=== PATIENT | female | born 1960 | race Caucasian/White ===

== ENCOUNTER 2017-09-21 15:02 | Emergency (ER) | payer OTHER ==
[2017-09-21 15:44] LABS: Absolute Lymphocytes (CBC) 3.4 K/uL (0.7-4.9); Absolute Monocytes 0.5 K/uL (0.1-1.3); Absolute Neutrophil 5.9 K/uL (1.8-8.0); Eosinophils % 2.5 % (0-4.4); Hematocrit 30.5 % (36.0-45.0); Lymphocytes % 33.4 % (15.3-44.8); MCH 21.3 pg (27.0-35.0); MCV 67.8 fL (80-100); MPV 7.8 fL (7.6-11.3); Monocytes % 5.2 % (3.3-12.3); RBC Red Blood Cell Count 4.49 M/uL (3.86-4.86)
[2017-09-21 15:56] LABS: Bicarbonate 26 mEq/L (21-31); Potassium 3.7 mEq/L (3.6-5.0); Protime INR 1.03; Sodium Level 132 mEq/L (135-145)
--- NOTE | 2017-09-21 16:00 | RAD REPORT ---
EXAM DESCRIPTION: CT - CTHCSPWOC - 09/21/2017 3:40 pm CLINICAL HISTORY: Trauma, head and neck injury. COMPARISON: None. TECHNIQUE: Axial 5 mm thick images of the head were obtained. Axial 2 mm thick images of the cervical spine were obtained with sagittal and coronal reconstruction images generated and reviewed. All CT scans are performed using dose optimization technique as appropriate and may include automated exposure control or mA/KV adjustment according to patient size. FINDINGS: CT HEAD WITHOUT CONTRAST: No acute hemorrhage, hydrocephalus or extra-axial collection is identified.No areas of brain edema or midline shift. The paranasal sinuses and mastoids are clear.The calvarium is intact. CT CERVICAL SPINE WITHOUT CONTRAST: No fracture or subluxation.Partial bony fusion noted involving at C5-7.No prevertebral soft tissues s welling is identified. IMPRESSION: No acute intracranial or cervical spine findings.
[2017-09-21 16:02] LABS: ALT/SGPT 9 IU/L (10-60); AST/SGOT 15 IU/L (10-42); Alkaline Phosphatase 120 IU/L (42-121); BUN Blood Urea Nitrogen 10 mg/dL (6-20); Bilirubin Direct < 0.1 mg/dL (0-0.2); Bilirubin Total 0.4 mg/dL (0.3-1.2); Creatine Phosphokinase 22 IU/L (22-269); Magnesium 1.7 mg/dL (1.8-2.5); Protein, Total 8.5 g/dL (6.0-8.3)
[2017-09-21 16:03] LABS: Glucose Level 447 mg/dL (65-120)
[2017-09-21 16:04] LABS: Alcohol Serum/Plasma < 10 mg/dl
[2017-09-21 16:05] LABS: CKMB Creatine Kinase MB 0.4 ng/ml (0.3-4.0)
--- NOTE | 2017-09-21 16:16 | RAD REPORT ---
EXAM DESCRIPTION: RAD - Pelvis - 09/21/2017 4:05 pm CLINICAL HISTORY: Fall, trauma, pelvic pain. COMPARISON: None. FINDINGS: No fracture, dislocation or radiographic evidence of AVN. IMPRESSION: Negative study.
--- NOTE | 2017-09-21 16:16 | RAD REPORT ---
EXAM DESCRIPTION: RAD - Chest Single View - 09/21/2017 4:05 pm CLINICAL HISTORY: Fall, trauma, chest pain COMPARISON: None. FINDINGS: Portable technique limits examination quality. The lungs are grossly clear. The heart is normal in size. No displaced fractures. IMPRESSION: No acute intrathoracic process suspected.
--- NOTE | 2017-09-21 16:17 | RAD REPORT ---
EXAM DESCRIPTION: RAD - Knee Left 3 View - 09/21/2017 4:05 pm CLINICAL HISTORY: Fall, trauma, knee pain COMPARISON: None. FINDINGS: Arthritic changes are present involving all three joint compartments. Small suprapatellar joint effusion noted. No acute fracture identified.
--- NOTE | 2017-09-21 16:18 | RAD REPORT ---
EXAM DESCRIPTION: RAD - Ankle Left 3 View - 09/21/2017 4:05 pm CLINICAL HISTORY: Fall, left ankle pain COMPARISON: None. FINDINGS: A large calcaneal spur along the plantar aspect is noted. No acute fracture or dislocation is seen.
[2017-09-21] MEDS ORDERED: INSULIN -REGULAR HUMAN 50 UNIT/0.5 ML ML ONE (16:44)
[2017-09-21] MEDS ORDERED: NA CHLORIDE 0.9% 500 ML ONE (16:44)
[2017-09-21] MEDS ORDERED: HYDROCODONE/APAP 7.5/325 MG TAB ONE (17:15)
--- NOTE | 2017-09-21 17:22 | EDPHYS ---
Physician Documentation [facility] Name: Kirsten Barros Age: 56 yrs Sex: Female : 1960 Arrival Date: 09/21/2017 Time: 15:03 Bed 2 Private MD: ED Physician Juanpablo Rojas HPI: 09/21 15:30 This 56 yrs old Female presents to ER via EMS with complaints of Fall Injury, cp Nausea. 15:30 Details of fall: The patient fell from seated position, bar stool, and struck wood cp laly. 15:30 Onset: The symptoms/episode began/occurred just prior to arrival. Associated injuries: cp The patient sustained left knee, painful injury, swelling. Patient reports she sitting on barstool and as she attempted to stand, somehow she fell off landing onto ground. Unsure of LOC. Patient admits to recently stopping prescribed medications. Historical: - Allergies: 15:07 No Known Allergies; sv - PMHx: 15:07 Diabetes - NIDDM; Psoriatic arthritis; sv - Immunization history:: Adult Immunizations up to date. - Social history:: Smoking status: Patient/guardian denies using tobacco, Patient/guardian denies using alcohol, street drugs. ROS: 15:35 Constitutional: Negative for body aches, chills, fever, poor PO intake. cp 15:35 Eyes: Negative for injury, pain, redness, and discharge. cp 15:35 ENT: Negative for drainage from ear(s), ear pain, sore throat, difficulty swallowing, cp difficulty handling secretions. 15:35 Neck: Positive for pain with movement, bony tenderness. 15:35 Cardiovascular: Negative for chest pain, palpitations. 15:35 Respiratory: Negative for cough, shortness of breath, wheezing. 15:35 Abdomen/GI: Negative for abdominal pain, nausea, vomiting, and diarrhea, constipation, black/tarry stool, rectal bleeding. 15:35 Back: Negative for radiated pain. cp 15:35 MS/extremity: Positive for pain, swelling, tenderness, of the left knee, Negative for decreased range of motion, deformity. 15:35 Skin: Negative for cellulitis, laceration(s). 15:35 Neuro: Negative for altered mental status, headache, seizure activity, weakness. 15:35 Psych: Positive for depression, Negative for suicide gesture, suicidal ideation. 15:35 All other systems are negative. Exam: 15:35 ECG was reviewed by the Attending Physician. cp 15:38 Constitutional: The patient appears in no acute distress, alert, awake, cp non-diaphoretic, non-toxic, well developed, well nourished. 15:38 Head/Face: Normocephalic, atraumatic. cp 15:38 Eyes: Periorbital structures: appear normal, Pupils: equal, round, and reactive to cp light and accomodation, Extraocular movements: intact throughout, Conjunctiva: normal, no exudate, no injection, Sclera: no appreciated abnormality, Lids and lashes: appear normal, bilaterally. 15:38 ENT: External ear(s): are unremarkable, Ear canal(s): are normal, clear, TM's: dullness, bilaterally, Nose: is normal, Mouth: Lips: moist, Oral mucosa: moist, Posterior pharynx: Airway: no evidence of obstruction, patent, Tonsils: are normal in appearance, Uvula: midline, swelling, is not appreciated, erythema, is not appreciated, exudate, is not appreciated, Voice: is normal. 15:38 Neck: C-spine: C-collar placed in ED, vertebral tenderness, that is mild, crepitus, is not appreciated, ROM/movement: pain, that is mild, limited range of motion, is not appreciated, Meningeal signs: are not present, nuchal rigidity, is not appreciated. 15:38 Chest/axilla: Inspection: normal, Palpation: is normal, no crepitus, no tenderness. cp 15:38 Cardiovascular: Rate: normal, Rhythm: regular, Pulses: Pulses are 2+ in right radial artery and left radial artery. Heart sounds: murmur, not appreciated, rub, not appreciated, gallop, not appreciated, Edema: is not appreciated, JVD: is not appreciated. 15:38 Respiratory: the patient does not display signs of respiratory distress, Respirations: normal, no use of accessory muscles, no retractions, no splinting, no tachypnea, labored breathing, is not present, Breath sounds: are clear throughout, no decreased breath sounds, no stridor, no wheezing. 15:38 Abdomen/GI: Inspection: abdomen appears normal, Bowel sounds: active, all quadrants, Palpation: abdomen is soft and non-tender, in all quadrants, rebound tenderness, is not appreciated, voluntary guarding, is not appreciated, involuntary guarding, is not appreciated, Rectal exam: Stool: brown, guaiac negative. 15:38 Back: ROM is normal, CVA tenderness, is absent, vertebral tenderness, is not appreciated. 15:38 Musculoskeletal/extremity: Joints: All joints are normal except the left knee displays painful range of motion, swelling, tenderness. 15:38 Skin: cellulitis, is not appreciated. 15:38 Neuro: Orientation: to person, place \T\ time. Mentation: lucid, able to follow commands, Cerebellar function: Romberg testing is negative, Motor: moves all fours, strength is normal, Sensation: no obvious gross deficits. Vital Signs: 15:06 Pulse 90; Resp 18; Temp 98.2(O); Pulse Ox 99% on R/A; Height 5 ft. 2 in. (157.48 cm); sv Pain 0/10; 16:36 BP 157 / 79; Pulse 107; Resp 18; Pulse Ox 98% ; sv 16:39 BP 147 / 70 Supine; Pulse 98; jb1 16:39 BP 157 / 79 Sitting; Pulse 106; jb1 16:39 BP 141 / 82 Standing; Pulse 114; jb1 18:04 BP 140 / 77; Pulse 89; Resp 16; Pulse Ox 99% ; sv MDM: 15:10 Patient medically screened. cp 15:30 Differential diagnosis: closed head injury, contusion, fracture, laceration, multiple cp trauma, DKA. 17:15 Data reviewed: vital signs, nurses notes, lab test result(s), EKG, radiologic studies, cp CT scan, plain films. 17:20 Test interpretation: by ED physician or midlevel provider: plain radiologic studies. cp 17:20 Counseling: I had a detailed discussion with the patient and/or guardian regarding: the cp historical points, exam findings, and any diagnostic results supporting the discharge/admit diagnosis, lab results, radiology results, the need for outpatient follow up, a family practitioner, to return to the emergency department if symptoms worsen or persist or if there are any questions or concerns that arise at home. Response to treatment: the patient's symptoms have mildly improved after treatment, and as a result, I will discharge patient. 09/21 15:25 Order name: Basic Metabolic Panel; Complete Time: 16:13 cp 09/21 16:14 Interpretation: Normal except: NA 132; CL 97; GLUC 447; GFR 76. cp 09/21 15:25 Order name: BNP; Complete Time: 16:13 cp 09/21 15:25 Order name: CBC with Diff; Complete Time: 16: cp 09/21 16:14 Interpretation: Normal except: HGB 9.6; HCT 30.5; MCV 67.8; MCH 21.3; MCHC 31.3; PLT cp 580; RDW 17.8. 09/21 15:25 Order name: Ckmb; Complete Time: 16:13 cp 09/21 15:25 Order name: CPK; Complete Time: 16: cp 09/21 15:25 Order name: LFT's; Complete Time: 16: cp 09/21 16:27 Interpretation: Normal except: SGPT 9; TP 8.5; ALB 3.0; GLOB 5.5; A/G 0.5. cp 09/21 15:25 Order name: Magnesium; Complete Time: 16:13 cp 09/21 15:25 Order name: PT-INR; Complete Time: 16:27 cp 09/21 15:25 Order name: Ptt, Activated; Complete Time: 16:27 cp 09/21 15:25 Order name: Troponin (emerg Dept Use Only); Complete Time: 16:13 cp 09/21 15:25 Order name: ETOH Level; Complete Time: 16: cp 09/21 15:25 Order name: Ketone, Serum; Complete Time: 16:13 cp 09/21 15:38 Order name: Glucose, Ancillary Testing; Complete Time: 16:13 EDMS 09/21 17:37 Order name: Urine Dipstick--Ancillary (enter results) ag 09/21 15:25 Order name: CT Head C Spine; Complete Time: 16:13 cp 09/21 15:25 Order name: XRAY Chest (1 view); Complete Time: 16:27 cp 09/21 15:25 Order name: EKG; Complete Time: 15:26 cp 09/21 15:25 Order name: Cardiac monitoring; Complete Time: 15:37 cp 09/21 15:25 Order name: EKG - Nurse/Tech; Complete Time: 15:37 cp 09/21 15:25 Order name: IV Saline Lock; Complete Time: 15:37 cp 09/21 15:25 Order name: Labs collected and sent; Complete Time: 15:37 cp 09/21 15:25 Order name: O2 Per Protocol; Complete Time: 15:37 cp 09/21 15:25 Order name: O2 Sat Monitoring; Complete Time: 15:37 cp 09/21 15:25 Order name: XRAY Pelvis; Complete Time: 16:27 cp 09/21 15:25 Order name: XRAY Knee LEFT 3 view; Complete Time: 16:27 cp 09/21 15:25 Order name: XRAY Ankle LEFT 3 view; Complete Time: 16:27 cp 09/21 16:33 Order name: Orthostatics; Complete Time: 16:39 cp 09/21 16:59 Order name: Knee Immobilizer: left knee cp 09/21 16:59 Order name: Crutches cp EC:35 Rate is 104 beats/min. Rhythm is regular. PA interval is normal at 154 msec. QRS cp interval is normal. QT interval is normal. No ST changes noted. Interpreted by me. Reviewed by me. Administered Medications: 16:48 Drug: Insulin Regular Human 10 units {Co-Signature: sg (Devon Resendez RN).} Route: IVP; sv Site: left antecubital; 17:11 Follow up: Response: No adverse reaction; Blood sugar is lowered sv 16:48 Drug: NS 0.9% 500 ml Route: IV; Rate: bolus; Site: left antecubital; sv 17:15 Follow up: Response: No adverse reaction; IV Status: Completed infusion; IV Intake: sv 500ml 17:15 Drug: Hydrocodone-Acetaminophen (7.5 mg-325 mg) 1 tabs Route: PO; sv 17:43 Follow up: Response: No adverse reaction sv 18:02 Drug: Magnesium Oxide 800 mg Route: PO; sv 18:02 Follow up: Response: No adverse reaction sv Point of Care Testing: Blood Glucose: 15:10 Blood Glucose: 412 mg/dL; sv 17:11 Blood Glucose: 357 mg/dL; sv Guaiac: 16:56 Stool Guaiac: Negative; Stool Hemoccult Control: Pass; sv 16:56 done by Ray MCCURDY sv Ranges: Critical Glucose Levels:Adult <50 mg/dl or >400 mg/dl <40 mg/dl or >180 mg/dl Disposition: 05/13/18 17:21 Discharged to Home. Impression: Fall from chair - Barstool, Pain in left knee - from fall, Diabetes mellitus due to underlying condition with hyperglycemia. - Condition is Stable. - Discharge Instructions: Elastic Bandage and RICE, Type 2 Diabetes Mellitus, Adult, Knee Immobilizer, Knee Pain, Diabetes Mellitus and Food. - Prescriptions for Ibuprofen 800 mg Oral Tablet - take 1 tablet by ORAL route every 8 hours As needed take with food; 30 tablet. Tramadol 50 mg Oral Tablet - take 1 tablet by ORAL route every 8 hours as needed; 12 tablet. - Medication Reconciliation Form, Thank You Letter, Antibiotic Education, Prescription Opioid Use form. - Follow up: Private Physician; When: 1 - 2 days; Reason: Recheck today's complaints. Follow up: Fitz Garner MD; When: 2 - 3 days; Reason: left knee pain. - Problem is new. - Symptoms have improved. Addendum: 09/30/2017 05:55 Co-signature as Attending Physician, Juanpablo Rojas MD I agree with the assessment and w a plan of care. Signatures: Dispatcher [employer] Brook Mehta RN RN Ray Vazquez PA PA Juanpablo Borges MD MD wa Steven Gay RN sg Corrections: (The following items were deleted from the chart) 09/21 17:23 09/20 15:35 Constitutional: Negative for body aches, chills, fever, poor PO intake, cp cp 09/21 17:23 09/20 15:35 Eyes: Negative for injury, pain, redness, and discharge, cp cp 09/21 18:45 17:21 09/21/2017 17:21 Discharged to Home. Impression: Fall from chair - Barstool; Pain sv in left knee - from fall; Diabetes mellitus due to underlying condition with hyperglycemia. Condition is Stable. Forms are Medication Reconciliation Form, Thank You Letter, Antibiotic Education, Prescription Opioid Use. Follow up: Private Physician; When: 1 - 2 days; Reason: Recheck today's complaints. Follow up: Ftiz Garner; When: 2 - 3 days; Reason: left knee pain. Problem is new. Symptoms have improved. cp
--- NOTE | 2017-09-21 17:22 | ER ---
Nurse's Notes [facility] Name: Kirsten Barros Age: 56 yrs Sex: Female : 1960 Arrival Date: 09/21/2017 Time: 15:03 Bed 2 Private MD: Diagnosis: Fall from chair-Barstool;Pain in left knee-from fall;Diabetes mellitus due to underlying condition with hyperglycemia Presentation: 09/21 14:57 Presenting complaint: EMS states: slipped off of a barstool, pt stated that the sv barstool went the other way. Pt found laying on the floor vomiting by EMS. BS-500, ST-132, NS 100 mls, Zofran 4 mg IVP, A\T\O x4 Temp-97.2. Care prior to arrival: IV initiated. 20 GA, in the right forearm, Glucose check: 500. Mechanism of Injury: Fall out of chair. 14:57 Acuity: IAN 2 sv 14:57 Method Of Arrival: EMS: [facility] sv 14:58 Transition of care: patient was not received from another setting of care. Onset of sv symptoms was September 21, 2017. Initial Sepsis Screen: Does the patient meet any 2 criteria? No. Patient's initial sepsis screen is negative. Does the patient have a suspected source of infection? No. Patient's initial sepsis screen is negative. Triage Assessment: 15:05 General: Appears uncomfortable, Behavior is cooperative, appropriate for age, Denies sv LOC. Pain: Complains of pain in left hip, left knee and back of neck Pain currently is 3 out of 10 on a pain scale. EENT: No signs and/or symptoms were reported regarding the EENT system. Neuro: Level of Consciousness is awake, alert, obeys commands, Oriented to person, place, time, situation, Moves all extremities. Cardiovascular: Patient's skin is warm and dry. Respiratory: Respiratory effort is even, unlabored, Respiratory pattern is regular, symmetrical. GI: Reports nausea. Derm: Skin is normal. Musculoskeletal: No signs and/or symptoms reported regarding the musculoskeletal system. Historical: - Allergies: 15:07 No Known Allergies; sv - PMHx: 15:07 Diabetes - NIDDM; Psoriatic arthritis; sv - Immunization history:: Adult Immunizations up to date. - Social history:: Smoking status: Patient/guardian denies using tobacco, Patient/guardian denies using alcohol, street drugs. Screenin:10 Abuse screen: Denies threats or abuse. Denies injuries from another. Nutritional sv screening: No deficits noted. Tuberculosis screening: No symptoms or risk factors identified. Fall Risk No fall in past 12 months (0 pts). No secondary diagnosis (0 pts). IV access (20 points). Ambulatory Aid- None/Bed Rest/Nurse Assist (0 pts). Gait- Normal/Bed Rest/Wheelchair (0 pts) Mental Status- Oriented to own ability (0 pts). Total Swanson Fall Scale indicates No Risk (0-24 pts). Assessment: 16:37 Reassessment: Patient appears in no apparent distress at this time. No changes from sv previously documented assessment. Patient and/or family updated on plan of care and expected duration. Pain level reassessed. Patient is alert, oriented x 3, equal unlabored respirations, skin warm/dry/pink. 17:20 Reassessment: Pt informed that the PA ordered a knee immoblizer and crutches. Pt stated sv that she wasn't going to be able to use either one since she has difficulty walking anyways. Pt stated that she will probably do better with a wrap. Farhan wrap placed on pt's left knee. Pt ambulatory to the bathroom with my standby assistance. 18:02 Reassessment: Patient appears in no apparent distress at this time. Patient and/or sv family updated on plan of care and expected duration. Pain level reassessed. Patient is alert, oriented x 3, equal unlabored respirations, skin warm/dry/pink. Pt calling for a ride home. Vital Signs: 15:06 Pulse 90; Resp 18; Temp 98.2(O); Pulse Ox 99% on R/A; Height 5 ft. 2 in. (157.48 cm); sv Pain 0/10; 16:36 BP 157 / 79; Pulse 107; Resp 18; Pulse Ox 98% ; sv 16:39 BP 147 / 70 Supine; Pulse 98; jb1 16:39 BP 157 / 79 Sitting; Pulse 106; jb1 16:39 BP 141 / 82 Standing; Pulse 114; jb1 18:04 BP 140 / 77; Pulse 89; Resp 16; Pulse Ox 99% ; sv ED Course: 15:03 Patient arrived in ED. sv 15:04 Brook Johnson, VEGA is Primary Nurse. sv 15:06 Triage completed. sv 15:08 Maintain EMS IV. Dressing intact. Site clean \T\ dry. Gauge \T\ site: 20G R FA. sv 15:10 Ray Lofton PA is PHCP. cp 15:10 Juanpablo Rojas MD is Attending Physician. cp 15:10 Patient has correct armband on for positive identification. Placed in gown. Bed in low sv position. Call light in reach. Side rails up X2. compliance monitor on. Pulse ox on. NIBP on. Door closed. Warm blanket given. Head of bed elevated. 15:10 Arm band placed on right wrist. sv 15:20 Rigid cervical collar applied and checked by physician. sv 15:25 Missed attempt(s): 20 gauge in right forearm. Bleeding controlled, band aid applied, sv catheter tip intact. 15:30 Initial lab(s) drawn, by me, sent to lab. Inserted saline lock: 20 gauge in right sv antecubital area, using aseptic technique. Blood collected. Flushed right antecubital with 5 ml normal saline. 15:36 EKG done, by ED staff, reviewed by Ray MCCURDY. jb1 15:40 CT completed. Patient moved to CT via stretcher. Patient moved back from CT. cw1 15:40 CT Head C Spine In Process Unspecified. EDMS 16:04 Notified Nurse Practitioner and/or Physician Residential Glazier of a critical lab result(s), Glu iw 447. 16:05 XRAY Chest (1 view) In Process Unspecified. EDMS 16:05 XRAY Pelvis In Process Unspecified. EDMS 16:05 XRAY Knee LEFT 3 view In Process Unspecified. EDMS 16:05 XRAY Ankle LEFT 3 view In Process Unspecified. EDMS 17:11 IV is patent, is intact, with fluids infusing freely. sv 17:19 Fitz Garner MD is Referral Physician. cp 17:20 Farhan wrap to left knee. sv 18:45 No provider procedures requiring assistance completed. IV discontinued, intact, sv bleeding controlled, No redness/swelling at site. Pressure dressing applied. Administered Medications: 16:48 Drug: Insulin Regular Human 10 units {Co-Signature: sg (Devon Resendez RN).} Route: IVP; sv Site: left antecubital; 17:11 Follow up: Response: No adverse reaction; Blood sugar is lowered sv 16:48 Drug: NS 0.9% 500 ml Route: IV; Rate: bolus; Site: left antecubital; sv 17:15 Follow up: Response: No adverse reaction; IV Status: Completed infusion; IV Intake: sv 500ml 17:15 Drug: Hydrocodone-Acetaminophen (7.5 mg-325 mg) 1 tabs Route: PO; sv 17:43 Follow up: Response: No adverse reaction sv 18:02 Drug: Magnesium Oxide 800 mg Route: PO; sv 18:02 Follow up: Response: No adverse reaction sv Point of Care Testing: Blood Glucose: 15:10 Blood Glucose: 412 mg/dL; sv 17:11 Blood Glucose: 357 mg/dL; sv Guaiac: 16:56 Stool Guaiac: Negative; Stool Hemoccult Control: Pass; sv 16:56 done by Ray MCCURDY sv Ranges: Intake: 17:15 IV: 500ml; Total: 500ml. sv Outcome: 17:21 Discharge ordered by MD. cp 18:45 Patient left the ED. sv 18:45 Discharged to home via wheelchair, with friend. sv 18:45 Condition: stable 18:45 Discharge instructions given to patient, Instructed on discharge instructions, follow up and referral plans. medication usage, Demonstrated understanding of instructions, follow-up care, medications, Prescriptions given X 2. Signatures: Dispatcher [employer] Felipe Laws jb1 Brook Johnson RN RN sv Williams, Irene, RN RN iw Woodley, Crystal cw1 Ray Lofton PA PA cp Steven Gay RN sg
[2017-09-21 17:44] LABS: Urine Blood NEGATIVE (NEG); Urine Glucose 2+ (NEG); Urine Protein NEGATIVE (NEG); Urine Specific Gravity <1.005 (1.005-1.030)
[2017-09-21] MEDS ORDERED: MAGNESIUM OXIDE 400 MG TAB ONE (17:54)
--- NOTE | 2017-09-22 14:46 | EKG ---
Test Date: 2017-09-21 Test Time: 15:27:17 Hem Marker: KAILEE MEASUREMENT RESULTS: Intervals: Rate: 104 [place]: 154 QRSD: 68 QT: 336 QTc: 441 [place]: P: 61 AZ: 154 QRS: 36 T: 39 INTERPRETIVE STATEMENTS: Sinus tachycardia Otherwise normal ECG Compared to ECG 11/11/2007 09:39:39 Sinus rhythm no longer present Electronically Signed On 09-22-17 14:46:05 CDT by Nick Seo
== END 2017-09-21 18:45 | disposition home or self-care (01) ==
LOC: ER 15:02
DX: E11.65 Type 2 diabetes mellitus with hyperglycemia (principal); M25.562 Pain in left knee; W07.XXXA Fall from chair, initial encounter; Y93.89 Activity, other specified; Y92.9 Unspecified place or not applicable
CPT/HCPCS: 36415; 70450; 71045; 72125; 72170; 80048; 80076; 80320; 81003; 82009; 82550; 82553; 82962; 83735; 83880; 84484; 85025; 85610; 85730; 93005; 96374; 99285

== ENCOUNTER 2017-12-19 12:37 | Observation (INO) | payer OTHER, SELFPAY ==
[2017-12-19] MEDS ORDERED: NA CHLORIDE 0.9% 1,000 ML ONE (14:08)
[2017-12-19] MEDS ORDERED: ONDANSETRON 4 MG/2 ML VIAL ONE (14:08)
[2017-12-19 14:11] LABS: Absolute Lymphocytes (CBC) 1.3 K/uL (0.7-4.9); Absolute Monocytes 0.5 K/uL (0.1-1.3); Absolute Neutrophil 5.5 K/uL (1.8-8.0); Basophils % 0.7 % (0-1.3); Hematocrit 26.4 % (36.0-45.0); Lymphocytes % 17.3 % (15.3-44.8); MCH 21.7 pg (27.0-35.0); MCV 67.9 fL (80-100); MPV 7.4 fL (7.6-11.3); Monocytes % 6.9 % (3.3-12.3); RBC Red Blood Cell Count 3.89 M/uL (3.86-4.86)
[2017-12-19 14:26] LABS: Albumin 2.3 g/dL (3.4-5.0); Bilirubin Direct 0.1 mg/dL (0-0.2); Bilirubin Total 0.3 mg/dL (0.2-1.0); Potassium 3.4 mmol/L (3.5-5.1); Protein, Total 8.3 g/dL (6.4-8.2)
[2017-12-19 14:47] LABS: Platelet Estimate INCR; Urine White Blood Cell Casts OK
[2017-12-19 14:48] LABS: Blood Morphology Comment NOTED (NOT SEEN); Hypochromasia 1+
[2017-12-19 15:29] LABS: Urine Blood TRACE (NEG); Urine Glucose 2+ (NEG); Urine Protein NEGATIVE (NEG); Urine Specific Gravity 1.015 (1.005-1.030); Urine pH 6.5 (5.0-7.0)
[2017-12-19 15:43] LABS: Barbiturates NEGATIVE (NEGATIVE); Benzodiazepines NEGATIVE (NEGATIVE); Cocaine NEGATIVE (NEGATIVE); METHAMPHETAM NEGATIVE (NEGATIVE); Methadone NEGATIVE (NEGATIVE); Opiates NEGATIVE (NEGATIVE); Phencyclidine NEGATIVE (NEGATIVE); THC Cannibis NEGATIVE (NEGATIVE)
--- NOTE | 2017-12-19 15:48 | ER ---
Nurse's Notes [facility] Name: Kirsten Barros Age: 57 yrs Sex: Female : 1960 Arrival Date: 12/19/2017 Time: 12:40 Bed 17 Private MD: Diagnosis: Symptomatic anemia Presentation: 12/19 12:41 Presenting complaint: EMS states: called out for dizziness after drinking one em chilango, also complaint of generalized weakness, denies pain BGL 414 per EMS, HR 110s, all other VSS. Transition of care: patient was not received from another setting of care. Onset of symptoms was December 19, 2017. Risk Assessment: Do you want to hurt yourself or someone else? Patient reports no desire to harm self or others. Initial Sepsis Screen: Does the patient meet any 2 criteria? HR > 90 bpm. Does the patient have a suspected source of infection? No. Patient's initial sepsis screen is negative. Care prior to arrival: Medication(s) given: Normal saline infusion, 200 mL. 12:41 Method Of Arrival: EMS: [facility] em 12:42 Acuity: IAN 3 la1 Triage Assessment: 12:45 General: Appears in no apparent distress. uncomfortable, Behavior is calm, cooperative. em Pain: Denies pain. Historical: - Allergies: 12:45 No Known Allergies; em - PMHx: 12:45 Diabetes - NIDDM; Psoriatic Arthritis; Anemia; em - PSHx: 12:45 None; em - Immunization history:: Adult Immunizations up to date. - Social history:: Smoking status: Patient/guardian denies using tobacco. - Ebola Screening: : Patient negative for fever greater than or equal to 101.5 degrees Fahrenheit, and additional compatible Ebola Virus Disease symptoms Patient denies exposure to infectious person Patient denies travel to an Ebola-affected area in the 21 days before illness onset No symptoms or risks identified at this time. Screenin:46 Abuse screen: Denies threats or abuse. Nutritional screening: No deficits noted. em Tuberculosis screening: No symptoms or risk factors identified. Fall Risk None identified. Assessment: 12:50 General: Appears in no apparent distress. uncomfortable, Behavior is calm, cooperative. em Pain: Denies pain. Neuro: Level of Consciousness is awake, alert, obeys commands, Oriented to person, place, time, situation, Reports dizziness, headache weakness. Cardiovascular: Capillary refill < 3 seconds Patient's skin is warm and dry. Respiratory: Airway is patent Respiratory effort is even, unlabored, Respiratory pattern is regular, symmetrical, Breath sounds are clear bilaterally. GI: Abdomen is flat. : No signs and/or symptoms were reported regarding the genitourinary system. EENT: No signs and/or symptoms were reported regarding the EENT system. Derm: Skin is intact, Skin is pink, warm \\T\\ dry. Musculoskeletal: Range of motion: intact in all extremities. 13:00 General: The previous assessment is accurate. Call light remains within reach. . ss 14:35 Reassessment: Patient appears in no apparent distress at this time. Patient and/or em family updated on plan of care and expected duration. Pain level reassessed. Patient is alert, oriented x 3, equal unlabored respirations, skin warm/dry/pink. c/o mild "hangover headache". 15:30 Reassessment: Patient appears in no apparent distress at this time. Patient and/or em family updated on plan of care and expected duration. Pain level reassessed. Patient is alert, oriented x 3, equal unlabored respirations, skin warm/dry/pink. 16:55 Reassessment: Patient appears in no apparent distress at this time. Patient and/or em family updated on plan of care and expected duration. Pain level reassessed. Patient is alert, oriented x 3, equal unlabored respirations, skin warm/dry/pink. Dr. Matos at [facility]. 17:24 Reassessment: Patient appears in no apparent distress at this time. Patient and/or em family updated on plan of care and expected duration. Pain level reassessed. Patient is alert, oriented x 3, equal unlabored respirations, skin warm/dry/pink. Patient states feeling better. Vital Signs: 12:45 BP 115 / 75; Pulse 111; Resp 16; Pulse Ox 97% on R/A; Weight 54.88 kg; Height 5 ft. 2 em in. (157.48 cm); Pain 0/10; 14:10 BP 120 / 64; Pulse 100; Resp 16; Temp 99.2(O); Pulse Ox 97% on R/A; Pain 0/10; em 15:00 BP 107 / 55; Pulse 107; Resp 18; Pulse Ox 99% on R/A; Pain 0/10; em 16:04 BP 123 / 67; Pulse 99; Resp 16; Pulse Ox 97% on R/A; Pain 0/10; em 17:27 BP 117 / 70; Pulse 102; Resp 18; Temp 98.6(O); Pulse Ox 97% on R/A; Pain 7/10; em 12:45 Body Mass Index 22.13 (54.88 kg, 157.48 cm) em ED Course: 12:40 Patient arrived in ED. em1 12:41 Jason Ornelas LVN is Primary Nurse. em 12:42 Triage completed. la1 12:45 Arm band placed on. em 12:46 Patient has correct armband on for positive identification. Bed in low position. Call em light in reach. Side rails up X2. 12:46 No provider procedures requiring assistance completed. em 12:46 Maintain EMS IV. Dressing intact. Good blood return noted. Site clean \\T\\ dry. Gauge \\T\\ em site: 20 LAC. 13:22 Fernando Mauricio MD is Attending Physician. ps1 14:00 Initial lab(s) drawn, by me, sent to lab. em 14:16 EKG done, by global position system technician. reviewed by Fernando Mauricio MD. sm3 15:45 Silvia Matos MD is Hospitalizing Provider. ps1 17:10 Repeat lab(s) drawn. by me, sent to lab. T\\T\\S collected, blood band applied to patient. em 17:41 Patient admitted, IV remains in place. em Administered Medications: 14:09 Drug: NS 0.9% 1000 ml Route: IV; Rate: 1 bolus; Site: left antecubital; em 15:00 Follow up: IV Status: Completed infusion; IV Intake: 1000ml em 14:10 Drug: Zofran 4 mg Route: IVP; Site: left antecubital; la1 14:37 Follow up: Response: No adverse reaction; Nausea is decreased em 17:12 Drug: Gabapentin 300 mg Route: PO; em 17:26 Follow up: Response: No adverse reaction; Pain is decreased em Intake: 15:00 IV: 1000ml; Total: 1000ml. em Outcome: 15:47 Decision to Hospitalize by Provider. ps1 17:41 Admitted to Med/surg accompanied by tech, via wheelchair, room 206, with chart, Report em called to VEGA Perez 17:41 Condition: good 17:41 Instructed on the need for admit, Demonstrated understanding of instructions. 17:42 Patient left the ED. em Signatures: Jason Ornelas LVN LVN em Rao Daley em1 Carolyn Dunne RN RN ss Pedro Dennis RN RN la1 Fernando Mauricio MD MD [facility] Consuelo Cardoza 3 Corrections: (The following items were deleted from the chart) 14:42 14:10 BP 120 / 64; Pulse 100bpm; Resp 16bpm; Pulse Ox 97% RA; Pain 0/10; em em
--- NOTE | 2017-12-19 15:48 | EDPHYS ---
Physician Documentation [facility] Name: Kirsten Barros Age: 57 yrs Sex: Female : 1960 Arrival Date: 12/19/2017 Time: 12:40 Bed 17 Private MD: ED Physician Fernando Mauricio HPI: 12/19 14:00 This 57 yrs old Female presents to ER via EMS with complaints of Dizziness, ps1 General Weakness. 14:00 Patient had a chilango at the [employer] restaurant and then felt lightheaded and weak. ps1 She states that she is not normally a drinker but it never hit her like this before. 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 No pain. Symptoms associated with nausea. . Historical: - Allergies: 12:45 No Known Allergies; em - PMHx: 12:45 Diabetes - NIDDM; Psoriatic Arthritis; Anemia; em - PSHx: 12:45 None; em - Immunization history:: Adult Immunizations up to date. - Social history:: Smoking status: Patient/guardian denies using tobacco. - Ebola Screening: : Patient negative for fever greater than or equal to 101.5 degrees Fahrenheit, and additional compatible Ebola Virus Disease symptoms Patient denies exposure to infectious person Patient denies travel to an Ebola-affected area in the 21 days before illness onset No symptoms or risks identified at this time. ROS: 14:00 Constitutional: Negative for fever, chills, and weight loss, Eyes: Negative for injury, ps1 pain, redness, and discharge, Cardiovascular: Negative for chest pain, palpitations, and edema, Respiratory: Negative for shortness of breath, cough, wheezing, and pleuritic chest pain, MS/Extremity: Negative for injury and deformity, Skin: Negative for injury, rash, and discoloration, Neuro: Negative for headache, weakness, numbness, tingling, and seizure. 14:00 Constitutional: Positive for fatigue. 14:00 Abdomen/GI: Positive for nausea. Exam: 14:00 Constitutional: This is a well developed, well nourished patient who is awake, alert, ps1 and in no acute distress. Head/Face: Normocephalic, atraumatic. Eyes: Pupils equal round and reactive to light, extra-ocular motions intact. Lids and lashes normal. Conjunctiva and sclera are non-icteric and not injected. Chest/axilla: Normal chest wall appearance and motion. Nontender with no deformity. No lesions are appreciated. Cardiovascular: Regular rate and rhythm. No gallops, murmurs, or rubs. Normal PMI, no JVD. No pulse deficits. Respiratory: Lungs have equal breath sounds bilaterally, clear to auscultation and percussion. No rales, rhonchi or wheezes noted. No increased work of breathing, no retractions or nasal flaring. Abdomen/GI: Soft, non-tender, with normal bowel sounds. No distension or tympany. No guarding or rebound. No evidence of tenderness throughout. MS/ Extremity: Pulses equal, no cyanosis. Neurovascular intact. Full, normal range of motion. Neuro: Awake and alert, GCS 15, oriented to person, place, time, and situation. Cranial nerves II-XII grossly intact. Sensory grossly intact. Vital Signs: 12:45 BP 115 / 75; Pulse 111; Resp 16; Pulse Ox 97% on R/A; Weight 54.88 kg; Height 5 ft. 2 em in. (157.48 cm); Pain 0/10; 14:10 BP 120 / 64; Pulse 100; Resp 16; Temp 99.2(O); Pulse Ox 97% on R/A; Pain 0/10; em 15:00 BP 107 / 55; Pulse 107; Resp 18; Pulse Ox 99% on R/A; Pain 0/10; em 16:04 BP 123 / 67; Pulse 99; Resp 16; Pulse Ox 97% on R/A; Pain 0/10; em 17:27 BP 117 / 70; Pulse 102; Resp 18; Temp 98.6(O); Pulse Ox 97% on R/A; Pain 7/10; em 12:45 Body Mass Index 22.13 (54.88 kg, 157.48 cm) em MDM: 13:59 Patient medically screened. ps1 15:47 Data reviewed: vital signs, nurses notes, lab test result(s), CBC. Counseling: I had a ps1 detailed discussion with the patient and/or guardian regarding: the historical points, exam findings, and any diagnostic results supporting the discharge/admit diagnosis, the need for further work-up and treatment in the hospital. 12/19 13:50 Order name: Basic Metabolic Panel; Complete Time: 14:40 ps1 12/19 13:50 Order name: CBC with Diff; Complete Time: 15:02 ps1 12/19 13:50 Order name: ETOH Level; Complete Time: 14:40 ps1 12/19 13:50 Order name: Hepatic Function; Complete Time: 14:40 ps1 12/19 13:50 Order name: Urine Drug Screen; Complete Time: 15:53 ps1 12/19 14:13 Order name: CBC Smear Scan; Complete Time: 15:02 EDMS 12/19 15:17 Order name: Urine Dipstick--Ancillary (enter results); Complete Time: 15:33 ag 12/19 15:27 Order name: [place] ag 12/19 15:58 Order name: Type and Screen EDCT 12/19 15:58 Order name: Vitamin B12 Level EDCT 12/19 15:58 Order name: Ferritin EDCT 12/19 15:58 Order name: Folic Acid, (Folate) EDCT 12/19 15:58 Order name: Transferrin Sat/Iron Binding EDCT 12/19 13:50 Order name: EKG; Complete Time: 13:51 ps1 12/19 13:50 Order name: EKG - Nurse/Tech; Complete Time: 14:37 ps1 12/19 13:50 Order name: IV Saline Lock; Complete Time: 14:37 ps1 12/19 15:58 Order name: CONS Pharmacy Consult EDCT 12/19 15:58 Order name: Clear Liquid, Advance as Tolerated EDCT 12/19 15:58 Order name: Basic Metabolic Panel EDCT 12/19 15:58 Order name: Basic Metabolic Panel EDCT 12/19 15:58 Order name: CBC with Automated Diff EDMS 12/19 15:58 Order name: CBC with Automated Diff EDMS 12/19 15:58 Order name: Hematocrit EDMS 12/19 15:58 Order name: Hematocrit EDMS 12/19 15:58 Order name: Hemoglobin EDCT 12/19 15:58 Order name: Hemoglobin EDCT 12/19 13:50 Order name: Labs collected and sent; Complete Time: 14:37 ps1 12/19 13:50 Order name: Urine Dipstick-Ancillary (obtain specimen); Complete Time: 15:15 ps1 Administered Medications: 14:09 Drug: NS 0.9% 1000 ml Route: IV; Rate: 1 bolus; Site: left antecubital; em 15:00 Follow up: IV Status: Completed infusion; IV Intake: 1000ml em 14:10 Drug: Zofran 4 mg Route: IVP; Site: left antecubital; la1 14:37 Follow up: Response: No adverse reaction; Nausea is decreased em 17:12 Drug: Gabapentin 300 mg Route: PO; em 17:26 Follow up: Response: No adverse reaction; Pain is decreased em Disposition: 12/19/17 15:47 Hospitalization ordered by Silvia Matos for Observation. Preliminary diagnosis is Symptomatic anemia. - Bed requested for Telemetry/MedSurg (observation). - Status is Observation. em - Condition is Stable. - Problem is chronic. - Symptoms have worsened. UTI on Admission? No Signatures: Dispatcher [employer] EDCT Jason Ornelas, DIE HOLDER DIE HOLDER em Pedro Dennis RN RN la1 Dina Nguyen ag Fernando Mauricio MD MD ps1 Corrections: (The following items were deleted from the chart) 15:59 15:58 Iron ordered. EDCT EDCT 17:17 15:47 Hospitalization Ordered by Silvia Matos MD for Observation. Preliminary diagnosis ag is Symptomatic anemia. Bed requested for Telemetry/MedSurg (observation). Status is Observation. Condition is Stable. Problem is chronic. Symptoms have worsened. UTI on Admission? No. ps1 17:42 17:17 12/19/2017 15:47 Hospitalization Ordered by Silvia Matos MD for Observation. em Preliminary diagnosis is Symptomatic anemia. Bed requested for Telemetry/MedSurg (observation). Status is Observation. Condition is Stable. Problem is chronic. Symptoms have worsened. UTI on Admission? No. ag
[2017-12-19] MEDS ORDERED: ACETAMINOPHEN 500 MG TAB PO PRN (15:52)
[2017-12-19] MEDS ORDERED: ONDANSETRON 4 MG/2 ML VIAL IV PRN (15:52)
[2017-12-19] MEDS ORDERED: NA CHLORIDE 0.9% 250 ML IV SCH (16:00)
[2017-12-19] MEDS ORDERED: GABAPENTIN 300 MG CAP ONE (17:07)
[2017-12-19 17:31] LABS: Hematocrit 26.8 % (36.0-45.0)
[2017-12-19 18:07] LABS: Ferritin 63.3 ng/mL (8-388); Folic Acid, (Folate) 5.7 ng/mL (3.1-17.5)
[2017-12-19] MEDS: NA CHLORIDE 0.9% 1,000 ML IV SCH (18:29)
[2017-12-19] MEDS: PANTOPRAZOLE 40 MG INJ IVP SCH (23:01)
[2017-12-20] MEDS: NA CHLORIDE 0.9% 1,000 ML IV SCH (03:08)
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
[2017-12-20 07:17] LABS: Urine Appearance CLEAR; Urine Bilirubin NEGATIVE (NEG); Urine Blood NEGATIVE (NEG); Urine Color YELLOW; Urine Glucose TRACE (NEG); Urine Protein NEGATIVE (NEG)
[2017-12-20 07:24] LABS: Urine Microscopic Reflex ORDER UMIC
[2017-12-20 07:32] LABS: Urine Bacteria <20 /HPF (<20); Urine Culture Reflex Order REFLEXED; Urine RBC NONE SEEN /HPF (NONE SEEN); Urine Yeast FEW (NONE SEEN)
--- NOTE | 2017-12-20 07:51 | EKG ---
Test Date: 2017-12-19 Test Time: 14:00:53 Replanting Machine Crewman: AYSE MEASUREMENT RESULTS: Intervals: Rate: 102 [place]: 138 QRSD: 70 QT: 348 QTc: 453 [place]: P: 67 [place]: 138 QRS: 47 T: 26 INTERPRETIVE STATEMENTS: Sinus tachycardia Low voltage QRS Borderline ECG Compared to ECG 09/21/2017 15:27:17 Low QRS voltage now present Electronically Signed On 12-20-17 07:50:37 CDT by Nick Seo
[2017-12-20] MEDS ORDERED: FERROUS SULFATE 325 MG TAB PO SCH (09:00)
[2017-12-20] MEDS ORDERED: SERTRALINE HCL 100 MG TAB PO SCH (09:00)
[2017-12-20] MEDS ORDERED: SODIUM CHLORIDE 0.9% 10ML INJ IV SCH (09:00)
[2017-12-20] MEDS ORDERED: glipiZIDE 5 MG TAB PO SCH (09:00)
[2017-12-20] MEDS: PANTOPRAZOLE 40 MG INJ IVP SCH (09:08)
[2017-12-20 10:29] LABS: Absolute Monocytes 0.4 K/uL (0.1-1.3); Absolute Neutrophil 3.1 K/uL (1.8-8.0); Basophils % 0.5 % (0-1.3); Eosinophils % 3.7 % (0-4.4); Hematocrit 25.3 % (36.0-45.0); Lymphocytes % 35.3 % (15.3-44.8); MCH 21.6 pg (27.0-35.0); MCV 66.5 fL (80-100); MPV 7.3 fL (7.6-11.3); Monocytes % 6.6 % (3.3-12.3)
[2017-12-20 10:41] LABS: BUN Blood Urea Nitrogen 5 mg/dL (7-18); Bicarbonate 25 mmol/L (21-32); Glucose Level 293 mg/dL (74-106); Potassium 3.4 mmol/L (3.5-5.1); Sodium Level 139 mmol/L (136-145)
--- NOTE | 2017-12-21 02:41 | DS ---
Date of Discharge: 12/20/2017 Admitting Diagnoses: 1.Gastrointestinal bleed. 2.Acute symptomatic blood loss anemia. 3.Hypokalemia. 4.Diabetes mellitus type 2 with hyperglycemia. 5.Essential hypertension. 6.Major depressive disorder. 7.Psoriasis. Discharge Diagnoses: 1.Acute symptomatic blood loss anemia. No further bleeding. Hemoglobin remained stable. 2.Gastrointestinal bleed. No further blood per rectum. The patient to follow up with GI as an outp atient. 3.Hypokalemia, replaced. 4.Diabetes mellitus type 2 with hyperglycemia, non-insulin dependent. 5.Essential hypertension, stable. 6.Major depressive disorder, on SSRI. 7.Psoriasis. Hospital Course: The patient is a 57-year-old female who has been having 2-week history of bright re d blood per rectum, comes in with nausea, dizziness, and decreased strength and overall generalized w eakness. The patient has been on iron supplements. The patient was found to have a hemoglobin of 8. 4. She was slightly tachycardic and somewhat hypotensive. The patient was started on IV fluids. He r hemoglobin was trended out and remained stable. Spoke with Dr. Heredia who recommended outpatient follow up as there is no acute bleeding. The patient's potassium was replaced. Stool occult blood was negative. The patient was then cleared for discharge and sent home in a stable condition. Activity: As tolerated. Medications: As per medication reconciliation. Followup: Follow up with primary care physician in 2 to 3 days. Follow up with FERNANDO, Dr. Heredia on Friday, and return to ER for worsening condition. Physical Examination: General: Awake, alert, oriented x3. No acute distress. CV: S1, S2. No murmurs. Respiratory: Moving air well bilaterally. No wheezing. Gastrointestinal: Abdomen is soft, nontender, nondistended. Positive bowel sounds. Extremities: No clubbing, cyanosis, or edema. Neurologic: Nonfocal. Skin: The patient has multiple psoriatic plaques. SA/MODL Voice ID: [id number] Report ID: [id number]
== END 2017-12-20 13:50 | disposition home or self-care (01) ==
LOC: ER 12:37 → ERHOLD 16:27 → 2ND 17:32 → 4TH 21:29
PROVIDERS: ADMIT Family Medicine; ATTEND Family Medicine
DX: D62 Acute posthemorrhagic anemia (principal); K62.5 Hemorrhage of anus and rectum; E87.6 Hypokalemia; E11.65 Type 2 diabetes mellitus with hyperglycemia; I10 Essential (primary) hypertension; F32.9 Major depressive disorder, single episode, unspecified; L40.9 Psoriasis, unspecified
CPT/HCPCS: 36415; 80048; 80076; 80307; 80320; 81003; 81015; 82272; 82607; 82728; 82746; 83540; 84466; 85014; 85018; 85025; 86850; 86900; 86901; 87086; 87088; 93005; 94760; 96361; 96374; 99285; C9113; G0378; J2405; J7030

== ENCOUNTER 2018-02-03 20:04 | Emergency (ER) | payer SELFPAY ==
[2018-02-03] MEDS ORDERED: HYDROCODONE/APAP 7.5/325 MG TAB ONE (21:01)
--- NOTE | 2018-02-03 22:56 | RAD REPORT ---
EXAM DESCRIPTION: RAD - Chest Single View - 02/03/2018 9:47 pm CLINICAL HISTORY: CHEST PAIN Chest pain. COMPARISON: Chest Single View dated 09/21/2017 FINDINGS: Portable technique limits examination quality. The lungs are grossly clear. The heart is normal in size. No displaced fractures. IMPRESSION: No acute intrathoracic process suspected.
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
== END 2018-02-03 23:25 | disposition home or self-care (01) ==
LOC: ER 20:04
DX: M62.830 Muscle spasm of back (principal); V29.49XA Motorcycle driver injured in collision with other motor vehicles in traffic accident, initial encounter
CPT/HCPCS: 71045; 72170; 99284

== ENCOUNTER 2018-02-08 08:38 | Observation (INO) | payer SELFPAY ==
[2018-02-08] MEDS ORDERED: NA CHLORIDE 0.9% 500 ML ONE (09:38)
[2018-02-08 09:52] LABS: Absolute Monocytes 0.5 K/uL (0.1-1.3); Basophils % 0.8 % (0-1.3); MCH 21.6 pg (27.0-35.0); MCV 66.5 fL (80-100); MPV 7.6 fL (7.6-11.3); Monocytes % 4.2 % (3.3-12.3); RBC Red Blood Cell Count 4.67 M/uL (3.86-4.86)
[2018-02-08 09:59] LABS: Protime INR 1.25
[2018-02-08 10:08] LABS: ALT/SGPT 9 U/L (12-78); AST/SGOT 12 U/L (15-37); Albumin 2.9 g/dL (3.4-5.0); Alkaline Phosphatase 140 U/L (45-117); BUN Blood Urea Nitrogen 8 mg/dL (7-18); Bicarbonate 27 mmol/L (21-32); Bilirubin Direct 0.2 mg/dL (0-0.2); Bilirubin Total 0.5 mg/dL (0.2-1.0); Glucose Level 252 mg/dL (74-106); NT PRO-BNP 68 pg/mL (<125); Potassium 3.3 mmol/L (3.5-5.1); Sodium Level 135 mmol/L (136-145); Troponin (Emerg Dept Use Only) < 0.02 ng/mL (0.0-0.045)
[2018-02-08 10:18] LABS: Blood Morphology Comment NOTED (NOT SEEN); Hypochromasia 1+; Platelet Estimate INCR; Urine White Blood Cell Casts OK
[2018-02-08 10:19] LABS: Poikilocytosis 1+; Stomatocytes 1+
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
--- NOTE | 2018-02-08 11:02 | ER ---
Nurse's Notes [facility] Name: Kirsten Barros Age: 57 yrs Sex: Female : 1960 Arrival Date: 02/08/2018 Time: 08:39 Bed 14 Private MD: Diagnosis: Chest pain, unspecified;Palpitations;Weakness;Anemia, unspecified Presentation: 02/08 08:48 Presenting complaint: Patient states: Progressive fatigue and exhaustion over the la1 course of the last week, pt also states intermittent bright red bleed in stool. Transition of care: patient was not received from another setting of care. Onset of symptoms was February 08, 2018. Risk Assessment: Do you want to hurt yourself or someone else? Patient reports no desire to harm self or others. Initial Sepsis Screen: Does the patient meet any 2 criteria?. 08:48 Method Of Arrival: Wheelchair la1 08:48 Acuity: IAN 3 la1 Historical: - Allergies: 08:48 No Known Allergies; la1 - PMHx: 08:48 Anemia; Diabetes - NIDDM; Psoriatic Arthritis; la1 - PSHx: 08:48 None; la1 - Immunization history:: Adult Immunizations up to date. - Social history:: Smoking status: Patient/guardian denies using tobacco. - Ebola Screening: : No symptoms or risks identified at this time. Screenin:32 Abuse screen: Denies threats or abuse. Denies injuries from another. Nutritional jl7 screening: No deficits noted. Tuberculosis screening: No symptoms or risk factors identified. Fall Risk IV access (20 points). Total Swanson Fall Scale indicates No Risk (0-24 pts). Assessment: 09:00 General: Appears in no apparent distress. uncomfortable, Behavior is cooperative, jl7 anxious. Pain: Denies pain. Neuro: Level of Consciousness is awake, alert, obeys commands, Oriented to person, place, time, situation. Cardiovascular: Heart tones present Patient's skin is warm and dry. Respiratory: Airway is patent Respiratory effort is even, unlabored, Respiratory pattern is regular, symmetrical, Breath sounds are clear bilaterally. GI: Abdomen is flat, non-distended, Bowel sounds present X 4 quads. Abd is soft and non tender X 4 quads. Reports constipation, bloody stool. : No signs and/or symptoms were reported regarding the genitourinary system. EENT: No signs and/or symptoms were reported regarding the EENT system. Derm: Skin is pink, warm \T\ dry. Musculoskeletal: No signs and/or symptoms reported regarding the musculoskeletal system. 10:00 Reassessment: No changes from previously documented assessment. Patient and/or family jl7 updated on plan of care and expected duration. Pain level reassessed. Patient is alert, oriented x 3, equal unlabored respirations, skin warm/dry/pink. 11:00 Reassessment: Patient appears in no apparent distress at this time. No changes from jl7 previously documented assessment. Patient and/or family updated on plan of care and expected duration. Pain level reassessed. Patient is alert, oriented x 3, equal unlabored respirations, skin warm/dry/pink. Vital Signs: 08:47 BP 105 / 64; Pulse 119; Resp 16; Pulse Ox 100% on R/A; Weight 56.7 kg; Height 5 ft. 2 la1 in. (157.48 cm); 09:41 BP 137 / 75; Pulse 92; Resp 10; Pulse Ox 100% on R/A; mh5 10:37 BP 124 / 62; Pulse 94; Resp 18; Pulse Ox 100% on R/A; mh5 11:32 BP 125 / 72; Pulse 89; Resp 16 S; Pulse Ox 100% on R/A; jl7 08:47 Body Mass Index 22.86 (56.70 kg, 157.48 cm) la1 ED Course: 08:39 Patient arrived in ED. mr 08:48 Arm band placed on left wrist. la1 08:49 Triage completed. la1 08:49 Wes Figueroa RN is Primary Nurse. jl7 08:50 Crystal Kiser NP is PHCP. rh1 08:50 Justice Barrientos MD is Attending Physician. rh1 09:00 Patient has correct armband on for positive identification. Placed in gown. Bed in low jl7 position. Call light in reach. Side rails up X 1. 09:00 environmental monitoring technician on. Pulse ox on. NIBP on. jl7 09:00 Served as a certified meeting professional during rectal exam. jl7 09:29 Initial lab(s) drawn, by al, sent to lab. Inserted saline lock: 22 gauge in right jl7 antecubital area, using aseptic technique. Blood collected. 10:03 XRAY Chest (1 view) In Process Unspecified. EDMS 11:01 Jesse Salinas MD is Hospitalizing Provider. rh1 12:07 Patient admitted, IV remains in place. intact, No redness/swelling at site. jl7 Administered Medications: 09:25 Drug: NS 0.9% 500 ml Route: IV; Rate: bolus; Site: right antecubital; jl7 10:15 Follow up: IV Status: Completed infusion jl7 Point of Care Testing: Blood Glucose: 08:47 Blood Glucose: 247 mg/dL; la1 Ranges: Outcome: 11:02 Decision to Hospitalize by Provider. rh1 12:07 Admitted to Tele accompanied by tech, via stretcher, room 209, with chart, Report jl7 called to VEGA Ronquillo 12:07 Condition: good 12:07 Instructed on the need for admit. 12:08 Patient left the ED. jl7 Signatures: Dispatcher [employer] EDWI Stacie Joe Lee, RN RN la1 Crystal Kiser, FRAMING MACHINE TENDER FRAMING MACHINE TENDER [facility] Jaja Daley Wes Zafar RN RN jl7
--- NOTE | 2018-02-08 11:25 | RAD REPORT ---
EXAM DESCRIPTION: RAD - Chest Single View - 02/08/2018 10:03 am CLINICAL HISTORY: CHEST PAIN Chest pain. COMPARISON: Chest Single View dated 02/03/2018; Chest Single View dated 09/21/2017 FINDINGS: Portable technique limits examination quality. The lungs are grossly clear. The heart is normal in size. No displaced fractures. IMPRESSION: No acute intrathoracic process suspected.
[2018-02-08] MEDS ORDERED: D50W 25 GM/50 ML SYRINGE IV PRN ×2 (11:28→23:46)
[2018-02-08] MEDS ORDERED: GLUCAGON 1 MG/VIAL IM PRN (11:28)
[2018-02-08] MEDS: INSULIN -REGULAR HUMAN 50 UNIT/0.5 ML ML SQ SCH ×3 (11:30→21:59)
--- NOTE | 2018-02-08 13:50 | P.HP ---
Certification for Inpatient Patient admitted to: Observation With expected LOS: <2 Midnights Patient will require the following post-hospital care: None Practitioner: I am a practitioner with admitting privileges, knowledge of patient current condition, hospital course, and medical plan of care. Services: Services provided to patient in accordance with Admission requirements found in Title 42 Section 412.3 of the Code of Federal Regulations Patient History Date of Service: 02/08/18 Reason for admission: chest pain History of Present Illness: 57 y/o female with anemia, depression, come jose m pain. She states she has chronic chest pain for yerars. Today, she was upset anf felt more chest [ain, left chest, 5-10, lasting half hour. No radiaiting. She has chroinc fatigue. Allergies No Known Allergies Allergy (Uncoded 12/19/17 18:03) Unknown Home Medications: Iron 1 tab PO TID 12/19/17 Metformin ER [Glucophage ER*] 1,000 mg PO BID 12/19/17 Sertraline [Zoloft*] 150 mg PO DAILY 12/19/17 glipiZIDE [Glipizide] 10 mg PO BID 12/19/17 Pantoprazole [Protonix Tab] 40 mg PO DAILY 02/08/18 - Past Medical/Surgical History Diabetic: Yes -: diabetes -: anemia -: psoriatic arthitis -: I & D for spider bite - Family History Sister -: Heart disease Notes: had open heart surgery - Social History Smoking Status: Never smoker Alcohol use: Yes CD- Drugs: No Caffeine use: No Place of Residence: Home Review of Systems 10-point ROS is otherwise unremarkable Physical Examination - Vital Signs Blood Pressure: 125/72 Pulse: 89 Respirations: 16 - Physical Exam General: Alert, In no apparent distress HEENT: Atraumatic, PERRLA, Mucous membr. moist/pink, EOMI, Sclerae nonicteric Neck: Supple, 2+ carotid pulse no bruit, No LAD, Without JVD or thyroid abnormality Respiratory: Clear to auscultation bilaterally, Normal air movement Cardiovascular: Regular rate/rhythm, Normal S1 S2 Gastrointestinal: Normal bowel sounds, No tenderness Musculoskeletal: No tenderness Integumentary: No rashes Neurological: Normal gait, Normal speech, Normal strength at 5/5 x4 extr, Normal tone, Normal affect Lymphatics: No axilla or inguinal lymphadenopathy - Studies Laboratory Data (last 24 hrs) 02/08/18 09:21: PT 14.8 H, INR 1.25 02/08/18 09:21: WBC 10.8, Hgb 10.1 L, Hct 31.0 L, Plt Count 687 H 02/08/18 09:21: Sodium 135 L, Potassium 3.3 L, BUN 8, Creatinine 0.80, Glucose 252 H, Magnesium 2.0, Total Bilirubin 0.5, AST 12 L, ALT 9 L, Alkaline Phosphatase 140 H Microbiology Data (last 24 hrs): 02/08/18 09:07 Stool Occult Blood - Final Assessment and Plan - Problems (Diagnosis) (1) Essential (primary) hypertension Onset Date: 12/22/17 Current Visit: Yes Status: Acute (2) Psoriasis Onset Date: 12/22/17 Current Visit: Yes Status: Chronic (3) Type 2 diabetes mellitus without complications Onset Date: 12/22/17 Current Visit: Yes Status: Chronic Qualifiers: Diabetes mellitus correction insulin use: without biscuit maker use Qualified Code(s): E11.9 - Type 2 diabetes mellitus without complications (4) Chest pain Current Visit: Yes Status: Acute Qualifiers: Chest pain type: precordial pain Qualified Code(s): R07.2 - Precordial pain (5) Anemia due to blood loss, acute Onset Date: 12/22/17 Current Visit: No Status: Acute - Plan --NS --Troponin x 3 --ECHO tomorrow --Cont Iron --CT chest abd pelvis --May DC home tomorrow; She needs to see Dr Heredia at clinic - Advance Directives Does patient have a Living Will: No Does patient have a Durable POA for Healthcare: No
[2018-02-08] MEDS ORDERED: PNEUMOCOCCAL VACCINE 0.5 ML IMVAC ONE (14:00)
[2018-02-08] MEDS: NA CHLORIDE 0.9% 1,000 ML IV SCH ×2 (14:49→21:58)
--- NOTE | 2018-02-08 15:07 | RAD REPORT ---
EXAM DESCRIPTION: CT - Chest Abdomen Pelvis W Cont - 02/08/2018 2:29 pm CLINICAL HISTORY: Chest and abdomen pain. ANEMIA COMPARISON: Chest Single View dated 02/08/2018; Chest Single View dated 09/21/2017 TECHNIQUE: Approximately 100 mL nonionic IV contrast was administered to the patient. All CT scans are performed using dose optimization technique as appropriate and may include automated exposure control or mA/KV adjustment according to patient size. FINDINGS: The lungs are clear.Small hiatal hernia.No pleural or pericardial effusion.Few mildly prom inent axillary lymph nodes bilaterally.No hilar or mediastinal adenopathy. The liver demonstrates diffuse fatty infiltration. The spleen, pancreas, adrenal glands and kidneys a re within normal limits. No bowel obstruction, free air, free fluid or abscess. Normal appendix. Mildly prominent bilateral i nguinal region lymph nodes seen. No worrisome osseous finding. IMPRESSION: No acute process is discerned. Mild nonspecific prominent lymph nodes in the axillary and inguinal regions. Small hiatal hernia. Fatty liver.
[2018-02-08] MEDS: glipiZIDE 5 MG TAB PO SCH (17:03)
[2018-02-08] MEDS: POTASSIUM 25 MEQ EFFERV TAB PO SCH (21:58)
[2018-02-08] MEDS ORDERED: D50W 25 GM/50 ML SYRINGE IV ONE (23:50)
[2018-02-09 06:07] LABS: Absolute Lymphocytes (CBC) 2.6 K/uL (0.7-4.9); Absolute Monocytes 0.5 K/uL (0.1-1.3); Basophils % 0.6 % (0-1.3); Eosinophils % 1.8 % (0-4.4); MCH 21.7 pg (27.0-35.0); MCV 66.6 fL (80-100); MPV 7.5 fL (7.6-11.3); Monocytes % 5.8 % (3.3-12.3); RBC Red Blood Cell Count 4.05 M/uL (3.86-4.86)
[2018-02-09 06:47] LABS: ALT/SGPT 7 U/L (12-78); AST/SGOT 7 U/L (15-37); Albumin 2.3 g/dL (3.4-5.0); Alkaline Phosphatase 119 U/L (45-117); BUN Blood Urea Nitrogen 6 mg/dL (7-18); Bicarbonate 28 mmol/L (21-32); Bilirubin Total 0.3 mg/dL (0.2-1.0); Glucose Level 200 mg/dL (74-106); Potassium 3.8 mmol/L (3.5-5.1); Protein, Total 8.1 g/dL (6.4-8.2); Sodium Level 136 mmol/L (136-145)
--- NOTE | 2018-02-09 06:48 | EKG ---
Test Date: 2018-02-08 Test Time: 09:08:03 Sand Conditioner: GASTON MEASUREMENT RESULTS: Intervals: Rate: 93 NH: 140 QRSD: 66 QT: 354 QTc: 440 [place]: P: 74 NH: 140 QRS: 40 T: 49 INTERPRETIVE STATEMENTS: Normal sinus rhythm Normal ECG Compared to ECG 12/19/2017 14:00:53 Sinus tachycardia no longer present Electronically Signed On 02-09-18 06:47:35 CDT by Nick Seo
[2018-02-09] MEDS: POTASSIUM 25 MEQ EFFERV TAB PO SCH (08:49)
[2018-02-09] MEDS: NA CHLORIDE 0.9% 1,000 ML IV SCH (08:49)
[2018-02-09] MEDS: glipiZIDE 5 MG TAB PO SCH (08:50)
[2018-02-09] MEDS: INSULIN -REGULAR HUMAN 50 UNIT/0.5 ML ML SQ SCH ×2 (08:51→11:30)
[2018-02-09] MEDS ORDERED: PANTOPRAZOLE 40MG TABLET PO SCH (09:00)
[2018-02-09] MEDS ORDERED: SERTRALINE HCL 50 MG TAB PO SCH (09:00)
[2018-02-09 13:10] LABS: Hematocrit 27.3 % (36.0-45.0)
--- NOTE | 2018-02-09 13:39 | P.DS ---
Admission Date: 02/08/18 Discharge Date: 02/09/18 Primary Care Provider: Dr. Ny; [facility] Disposition: ROUTINE DISCHARGE Discharge Condition: GOOD Reason for Admission: chest pain Consultations: none Procedures: CT Chest: Medical problem list: Chest pain resolved, atypical Diabetes mellitus type 2 [id number] Depression with anxiety GERD Anemia, iron deficiency Brief History of Present Illness: 57-year-old female presented urgency room with chest pain. Patient admitted overnite for evaluation. Hospital Course: Patient admitted for chest pain. This resolved. Cardiac enzymes unremarkable. No significant chest pain noted at discharge. This is likely atypical related to GERD. Echocardiogram obtained. This can be followed up as an outpatient. Patient has GERD. Patient will continue with Protonix 40 mg 1 pill once daily. Recommendation is for the patient follow up with GI as an outpatient within the next week. Patient may require GI evaluation-endoscopy and colonoscopy to further evaluate. Patient has anemia likely iron deficiency. Hemoglobin remained stable during her stay. At discharge she will continue with iron 325 mg 1 pill twice daily. Recommendation is for the patient follow up with GI as an outpatient for possible endoscopy and colonoscopy in the near future to further address. Information will be provided. Recommendation to recheck lab-CBC in 1 week to monitor progress. Patient with diabetes. At discharge she will continue with metformin 1000 mg 1 pill twice daily and glipizide 10 mg 1 pill twice daily. Recommendation is to maintain blood sugars less than 140 fasting and less than 2 after meals. Further adjustment can be done by her PCP. Patient has depression with anxiety. Patient will continue with Zoloft 150 mg 1 pill daily. Patient will follow up with [facility] to further monitor and address. Vital Signs/Physical Exam: Temp Pulse Resp BP Pulse Ox 99.2 F 92 H 18 118/59 L 99 02/09/18 08:00 02/09/18 08:00 02/09/18 08:00 02/09/18 08:00 02/09/18 08:00 General: Alert, In no apparent distress, Oriented x3, Cooperative HEENT: Atraumatic Neck: Supple Respiratory: Clear to auscultation bilaterally, Normal air movement Cardiovascular: Normal pulses, Regular rate/rhythm Gastrointestinal: Normal bowel sounds, Soft and benign, Non-distended, No tenderness, No masses, No rebound, No guarding Musculoskeletal: No erythema, No tenderness, No warmth Integumentary: No tenderness/swelling, No erythema, No warmth, No cyanosis Neurological: Normal speech, Normal strength at 5/5 x4 extr, Normal tone, Normal affect Laboratory Data at Discharge: WBC 9.3 K/uL (4.3-10.9) 02/09/18 05:31 Hgb 8.7 g/dL (12.0-15.0) L 02/09/18 12:48 Hct 27.3 % (36.0-45.0) L 02/09/18 12:48 Plt Count 553 K/uL (152-406) H 02/09/18 05:31 PT 14.8 SECONDS (9.5-12.5) H 02/08/18 09:21 INR 1.25 02/08/18 09:21 Sodium 136 mmol/L (136-145) 02/09/18 05:31 Potassium 3.8 mmol/L (3.5-5.1) 02/09/18 05:31 BUN 6 mg/dL (7-18) L 02/09/18 05:31 Creatinine 0.60 mg/dL (0.55-1.3) 02/09/18 05:31 Glucose 200 mg/dL (74-106) H 02/09/18 05:31 Magnesium 2.0 mg/dL (1.8-2.4) 02/08/18 09:21 Total Bilirubin 0.3 mg/dL (0.2-1.0) 02/09/18 05:31 AST 7 U/L (15-37) L 02/09/18 05:31 ALT 7 U/L (12-78) L 02/09/18 05:31 Alkaline Phosphatase 119 U/L (45-117) H 02/09/18 05:31 Troponin I < 0.02 ng/mL (0.0-0.045) 02/09/18 02:13 Home Medications: Metformin ER [Glucophage ER*] 1,000 mg PO BID 12/19/17 Sertraline [Zoloft*] 150 mg PO DAILY 12/19/17 glipiZIDE [Glipizide] 10 mg PO BID 12/19/17 Ferrous Sulfate [Iron] 325 mg PO BID #60 tablet 02/09/18 Pantoprazole [Protonix Tab*] 40 mg PO DAILY #30 tab 02/09/18 New Medications: Ferrous Sulfate [Iron] 325 mg PO BID #60 tablet Pantoprazole [Protonix Tab*] 40 mg PO DAILY #30 tab Patient Discharge Instructions: 1. Patient will need to follow up with PCP in 1 week to follow up this hospitalization. 2. Patient admitted for chest pain. This resolved. Cardiac enzymes unremarkable. No significant chest pain noted at discharge. This is likely atypical related to GERD. 3. Patient has GERD. Patient will continue with Protonix 40 mg 1 pill once daily. Recommendation is for the patient follow up with GI as an outpatient within the next week. Patient may require GI evaluation-endoscopy and colonoscopy to further evaluate. 4. Patient has anemia likely iron deficiency. Hemoglobin remained stable during her stay. At discharge she will continue with iron 325 mg 1 pill twice daily. Recommendation is for the patient follow up with GI as an outpatient for possible endoscopy and colonoscopy in the near future to further address. Information will be provided. Recommendation is to recheck lab-CBC in 1 week to monitor progress. 5. Patient with diabetes. At discharge she will continue with metformin 1000 mg 1 pill twice daily and glipizide 10 mg 1 pill twice daily. Recommendation is to maintain blood sugars less than 140 fasting and less than 2 after meals. Further adjustment can be done by her PCP. 6. Patient has depression with anxiety. Patient will continue with Zoloft 150 mg 1 pill daily. Patient will follow up with [facility] to further monitor and address. Diet: ADA Activity: Ad nory Time spent managing pt's care (in minutes): 55
--- NOTE | 2018-02-09 17:22 | ECHO ---
HEIGHT: 5 ft 2 in WEIGHT: 125 lb 0 oz DATE OF STUDY: 02/09/[address]: Jesse Salinas MD 2-DIMENSIONAL: YES M.MODE: YES DOPPLER: YES COLOR FLOW: YES TDS: PORTABLE: DEFINITY: BUBBLE STUDY: DIAGNOSIS: CHEST PAIN CARDIAC HISTORY: CATHERIZATION: NO SURGERY: NO PROSTHETIC VALVE: NO PACEMAKER: NO MEASUREMENTS (cm) DIASTOLIC (NORMALS) SYSTOLIC (NORMALS) IVSd 0.9 (0.6-1.2) LA Diam 3.5 (1.9-4.0) LVEF 70% LVIDd 4.0 (3.5-5.7) LVIDs 2.5 (2.0-3.5) %FS 39% LVPWd 1.0 (0.6-1.2) Ao Diam 2.4 (2.0-3.7) 2 DIMENSIONAL ASSESSMENT: RIGHT ATRIUM: NORMAL LEFT ATRIUM: NORMAL RIGHT VENTRICLE: NORMAL LEFT VENTRICLE: NORMAL TRICUSPID VALVE: NORMAL MITRAL VALVE: NORMAL PULMONIC VALVE: NORMAL AORTIC VALVE: NORMAL PERICARDIAL EFFUSION: NONE AORTIC ROOT: NORMAL LEFT VENTRICULAR WALL MOTION: NORMAL DOPPLER/COLOR FLOW: NORMAL COMMENTS: NORMAL TWO DIMENSIONAL ECHOCARDIOGRAM. TECHNOLOGIST: MARY VALADEZ
== END 2018-02-09 16:21 | disposition home or self-care (01) ==
LOC: ER 08:38 → ERHOLD 11:02 → 2ND 11:55
PROVIDERS: ADMIT Internal Medicine Hematology & Oncology; ATTEND Internal Medicine Hematology & Oncology
DX: R07.89 Other chest pain (principal); E11.9 Type 2 diabetes mellitus without complications; F41.8 Other specified anxiety disorders; K21.9 Gastro-esophageal reflux disease without esophagitis; D50.9 Iron deficiency anemia, unspecified; L40.9 Psoriasis, unspecified
CPT/HCPCS: 36415; 71045; 71260; 74177; 80048; 80053; 80076; 82272; 82607; 82728; 82962; 83540; 83735; 83880; 84466; 84484; 85014; 85018; 85025; 85610; 93005; 93306; 96360; 99285; G0378; J7030; Q9967

== ENCOUNTER 2020-02-28 23:40 | Inpatient (IN) | payer SELFPAY ==
[2020-02-29] MEDS ORDERED: NA CHLORIDE 0.9% 1,000 ML ONE (00:41)
[2020-02-29 01:03] LABS: Absolute Lymphocytes (CBC) 3.8 K/uL (0.7-4.9); Basophils % 1.3 % (0-1.3); Hematocrit 30.9 % (36.0-45.0); Lymphocytes % 32.7 % (15.3-44.8); MPV 7.2 fL (7.6-11.3); Protime INR 0.99
[2020-02-29 01:16] LABS: ALT/SGPT 11 U/L (12-78); AST/SGOT 13 U/L (15-37); Albumin 2.8 g/dL (3.4-5.0); Alkaline Phosphatase 185 U/L (45-117); BUN Blood Urea Nitrogen 9 mg/dL (7-18); Bicarbonate 27 mmol/L (21-32); Bilirubin Direct < 0.1 mg/dL (0-0.2); Bilirubin Total 0.4 mg/dL (0.2-1.0); Glucose Level 263 mg/dL (74-106); Lipase 198 U/L (73-393); Magnesium 1.9 mg/dL (1.8-2.4); NT PRO-BNP 79 pg/mL (<125); Potassium 3.2 mmol/L (3.5-5.1); Protein, Total 8.8 g/dL (6.4-8.2); Sodium Level 135 mmol/L (136-145); Troponin (Emerg Dept Use Only) < 0.02 ng/mL (0.0-0.045)
[2020-02-29 01:44] LABS: Blood Morphology Comment NOTED (NOT SEEN); Platelet Estimate ADEQ; Polychromasia 1+; White Blood Cell Scan OK (OK)
[2020-02-29] MEDS ORDERED: POTASSIUM CL SA 10 MEQ TAB PO ONE (02:13)
[2020-02-29 02:32] LABS: Barbiturates NEGATIVE (NEGATIVE); Benzodiazepines NEGATIVE (NEGATIVE); Cocaine NEGATIVE (NEGATIVE); METHAMPHETAM NEGATIVE (NEGATIVE); Methadone NEGATIVE (NEGATIVE); Opiates NEGATIVE (NEGATIVE); Phencyclidine NEGATIVE (NEGATIVE); THC Cannibis NEGATIVE (NEGATIVE)
[2020-02-29 03:22] LABS: Urine Blood TRACE (NEG); Urine Glucose TRACE (NEG); Urine Protein NEGATIVE (NEG)
[2020-02-29 04:07] LABS: Urine Culture Reflex Order NOT NEEDED
[2020-02-29 04:10] LABS: Urine Bacteria <20 /HPF (<20); Urine RBC NONE SEEN /HPF (NONE SEEN); Urine Yeast FEW (NONE SEEN)
--- NOTE | 2020-02-29 06:41 | ER ---
Nurse's Notes [facility] Name: Kirsten Barros Age: 59 yrs Sex: Female : 1960 Arrival Date: 02/28/2020 Time: 23:43 Bed 16 Private MD: Diagnosis: Chest pain. Generaliized weakness. Difficulty ambulating Presentation: 02/28 00:00 Chief complaint: Patient states: she is feeling weak, doesn't feel good, has been bb having chest pain intermittently for a week with no radiation worsens with stress, pt taking iron for anemia but has not been taking it regularly. Coronavirus screen: At this time, the client does not indicate any symptoms associated with coronavirus-19. Ebola Screen: No symptoms or risks identified at this time. Initial Sepsis Screen: Does the patient meet any 2 criteria? No. Patient's initial sepsis screen is negative. Does the patient have a suspected source of infection? No. Patient's initial sepsis screen is negative. Risk Assessment: Do you want to hurt yourself or someone else? Patient reports no desire to harm self or others. Onset of symptoms was February 24, 2020. 00:00 Method Of Arrival: Wheelchair bb 00:00 Acuity: IAN 3 bb Historical: - Allergies: 00:06 No Known Allergies; bb - Home Meds: 00:06 sertraline 50 mg oral tab 3 tabs once daily [Active]; metformin 1,000 mg Oral TG24 1 bb tab 2 times per day [Active]; gabapentin 100 mg oral cap 1 caps 3 times per day [Active]; Iron CR 65 mg Oral three times a day [Active]; pantoprazole 40 mg oral TbEC 1 tab once daily [Active]; glipizide 10 mg Oral tab 1 tab 2 times per day [Active]; lisinopril 2.5 mg Oral tab 1 tab once daily [Active]; lovastatin 10 mg Oral tab 1 tab once daily [Active]; - PMHx: 00:06 Anemia; Diabetes - NIDDM; Psoriatic Arthritis; bb - PSHx: 00:06 None; bb - Immunization history:: Adult Immunizations up to date. - Social history:: Smoking status: Patient denies any tobacco usage or history of. Patient/guardian denies using alcohol, street drugs. Screenin:06 Abuse screen: Denies threats or abuse. Nutritional screening: No deficits noted. jb4 Tuberculosis screening: No symptoms or risk factors identified. Fall Risk None identified. Assessment: 00:06 General: Appears in no apparent distress. uncomfortable, Behavior is calm, cooperative, jb4 appropriate for age. Pain: Complains of pain in chest Pain does not radiate. Pain currently is 3 out of 10 on a pain scale. Quality of pain is described as sharp, Is intermittent. Neuro: Level of Consciousness is awake, alert, obeys commands, Oriented to person, place, time, situation. Cardiovascular: Patient's skin is warm and dry. Rhythm is sinus tachycardia. Respiratory: Airway is patent Respiratory effort is even, unlabored, Respiratory pattern is regular, symmetrical. GI: Reports nausea. : No signs and/or symptoms were reported regarding the genitourinary system. EENT: No signs and/or symptoms were reported regarding the EENT system. Derm: Skin is intact, Skin is pink, warm \\T\\ dry. Musculoskeletal: Circulation, motion, and sensation intact. Range of motion: intact in all extremities. 01:23 Reassessment: Patient and/or family updated on plan of care and expected duration. Pain jb4 level reassessed. PT is resting in bed with eyes closed, respirations are even and unlabored with no s/s of pain or distress noted. 02:30 Reassessment: Patient appears in no apparent distress at this time. No changes from jb4 previously documented assessment. Patient and/or family updated on plan of care and expected duration. Pain level reassessed. 03:30 Reassessment: Patient appears in no apparent distress at this time. Patient and/or jb4 family updated on plan of care and expected duration. Pain level reassessed. Patient is alert, oriented x 3, equal unlabored respirations, skin warm/dry/pink. 04:45 Reassessment: Patient appears in no apparent distress at this time. Patient and/or jb4 family updated on plan of care and expected duration. Pain level reassessed. Patient is alert, oriented x 3, equal unlabored respirations, skin warm/dry/pink. Pt ambulated to the restroom with steady gait, and back to bed. 05:54 Reassessment: Patient appears in no apparent distress at this time. Patient and/or jb4 family updated on plan of care and expected duration. Pain level reassessed. Patient is alert, oriented x 3, equal unlabored respirations, skin warm/dry/pink. 06:30 Reassessment: Patient appears in no apparent distress at this time. Patient and/or jb4 family updated on plan of care and expected duration. Pain level reassessed. Patient is alert, oriented x 3, equal unlabored respirations, skin warm/dry/pink. Provider at the bedside. Pt states "I still have not energy, I do not feel like I can go home on my own, I still feel so week trying to walk.". 08:11 Reassessment: Patient appears in no apparent distress at this time. Patient and/or jl7 family updated on plan of care and expected duration. Pain level reassessed. Patient is alert, oriented x 3, equal unlabored respirations, skin warm/dry/pink. Denies discomfort, request a cup of water, water provided Patient denies pain at this time. Vital Signs: 00:00 BP 158 / 85; Pulse 111; Resp 16 S; Temp 98.3(O); Pulse Ox 99% ; Weight 54.43 kg (R); bb Height 5 ft. 2 in. (157.48 cm) (R); Pain 3/10; 01:00 BP 148 / 81; Pulse 97; Resp 17; Pulse Ox 100% on R/A; jb4 02:15 BP 145 / 85; Pulse 96; Resp 16; Pulse Ox 99% on R/A; jb4 04:15 BP 129 / 74; Pulse 97; Resp 18; Pulse Ox 98% on R/A; jb4 05:45 BP 146 / 78; Pulse 105; Resp 17; Pulse Ox 99% on R/A; jb4 08:11 BP 148 / 89; Pulse 99; Resp 15; Pulse Ox 99% ; jl7 00:00 Body Mass Index 21.95 (54.43 kg, 157.48 cm) bb ED Course: 02/27 23:43 Patient arrived in ED. bp1 23:47 Gaurang Hamm MD is Attending Physician. pkl 23:51 Blane Babin, RN is Primary Nurse. jb4 02/28 00:03 Triage completed. bb 00:06 Arm band placed on Patient placed in an exam room, on a stretcher, on night monitor, bb on pulse oximetry. EKG completed in triage. Results shown to MD. 00:38 Inserted saline lock: 22 gauge in left wrist, using aseptic technique. Blood collected. ds4 00:49 XRAY Chest (1 view) In Process Unspecified. EDMS 06:38 Swapna Anderson MD is Hospitalizing Provider. pkl 07:00 Patient has correct armband on for positive identification. Placed in gown. Bed in low jl7 position. Call light in reach. Side rails up X 1. night monitor on. Pulse ox on. NIBP on. Warm blanket given. 07:08 Primary Nurse role handed off by Blane Babin, VEGA 08:11 Wes Figueroa, RN is Primary Nurse. jl7 Administered Medications: 00:48 Drug: NS 0.9% 500 ml Route: IV; Rate: bolus; Site: left forearm; jb4 01:22 Follow up: Response: No adverse reaction; IV Status: Completed infusion jb4 01:22 Drug: NS 0.9% 1000 ml Route: IV; Rate: 100 ml/hr; Site: left forearm; jb4 08:13 Follow up: IV Status: Completed infusion jl7 02:10 Drug: K-Dur 40 mEq Route: PO; jb4 08:13 Follow up: Response: No adverse reaction jl7 Outcome: 06:40 Decision to Hospitalize by Provider. pkl 09:55 Patient left the ED. hb Signatures: Dispatcher [employer] EDID Brook Johnson, RN Gaurang Orourke MD MD pkBethany Bustos, RN RN Anderson Becker ds4 Cierra Briggs RN RN Blane Babin, Wes Iraheta RN, RN RN jl7 Nahomy Mckay bp1
--- NOTE | 2020-02-29 06:41 | EDPHYS ---
Physician Documentation [facility] Name: Kirsten Barros Age: 59 yrs Sex: Female : 1960 Arrival Date: 02/28/2020 Time: 23:43 Bed 16 Private MD: ED Physician Gaurang Hamm HPI: 02/28 00:23 This 59 yrs old Female presents to ER via Wheelchair with complaints of pkl General Weakness. 00:23 The patient or guardian reports chest pain that is located primarily in the substernal pkl area. Onset: 1 week(s) ago. The pain does not radiate. The chest pain is described as dull, intermittent. Historical: - Allergies: 00:06 No Known Allergies; bb - Home Meds: 00:06 sertraline 50 mg oral tab 3 tabs once daily [Active]; metformin 1,000 mg Oral TG24 1 bb tab 2 times per day [Active]; gabapentin 100 mg oral cap 1 caps 3 times per day [Active]; Iron CR 65 mg Oral three times a day [Active]; pantoprazole 40 mg oral TbEC 1 tab once daily [Active]; glipizide 10 mg Oral tab 1 tab 2 times per day [Active]; lisinopril 2.5 mg Oral tab 1 tab once daily [Active]; lovastatin 10 mg Oral tab 1 tab once daily [Active]; - PMHx: 00:06 Anemia; Diabetes - NIDDM; Psoriatic Arthritis; bb - PSHx: 00:06 None; bb - Immunization history:: Adult Immunizations up to date. - Social history:: Smoking status: Patient denies any tobacco usage or history of. Patient/guardian denies using alcohol, street drugs. ROS: 00:23 Eyes: Negative for injury, pain, redness, and discharge, ENT: Negative for injury, pkl pain, and discharge, Neck: Negative for injury, pain, and swelling, Cardiovascular: Negative for chest pain, palpitations, and edema, Respiratory: Negative for shortness of breath, cough, wheezing, and pleuritic chest pain. 00:23 Abdomen/GI: Negative for nausea, vomiting, and diarrhea. 00:23 Back: Negative for acute changes. 00:23 : Negative for urinary symptoms. 00:23 MS/extremity: Negative for acute changes. 00:23 Skin: Positive for rash, diffusely, H/O Psoriasis. 00:23 Neuro: Positive for weakness, Negative for altered mental status. Exam: 00:23 Head/Face: Normocephalic, atraumatic. Eyes: Pupils equal round and reactive to light, pkl extra-ocular motions intact. Lids and lashes normal. Conjunctiva and sclera are non-icteric and not injected. Cornea within normal limits. Periorbital areas with no swelling, redness, or edema. ENT: Nares patent. No nasal discharge, no septal abnormalities noted. Tympanic membranes are normal and external auditory canals are clear. Oropharynx with no redness, swelling, or masses, exudates, or evidence of obstruction, uvula midline. Mucous membranes moist. Neck: Trachea midline, no thyromegaly or masses palpated, and no cervical lymphadenopathy. Supple, full range of motion without nuchal rigidity, or vertebral point tenderness. No Meningismus. Chest/axilla: Normal chest wall appearance and motion. Nontender with no deformity. No lesions are appreciated. Cardiovascular: Regular rate and rhythm with a normal S1 and S2. No gallops, murmurs, or rubs. Normal PMI, no JVD. No pulse deficits. Respiratory: Lungs have equal breath sounds bilaterally, clear to auscultation and percussion. No rales, rhonchi or wheezes noted. No increased work of breathing, no retractions or nasal flaring. 00:23 Abdomen/GI: Bowel sounds: normal, Palpation: abdomen is soft and non-tender, in all quadrants, Rectal exam: Stool: guaiac negative, the exam is chaperoned by the nurse. 00:23 Back: Exam negative for acute changes. 00:23 : Exam negative for acute changes. 00:23 Musculoskeletal/extremity: Exam is negative for acute changes. 00:23 Skin: Exam negative for rash. 00:23 Neuro: Orientation: is normal, Mentation: is normal, Cranial nerves: grossly normal, Motor: is normal. Vital Signs: 00:00 BP 158 / 85; Pulse 111; Resp 16 S; Temp 98.3(O); Pulse Ox 99% ; Weight 54.43 kg (R); bb Height 5 ft. 2 in. (157.48 cm) (R); Pain 3/10; 01:00 BP 148 / 81; Pulse 97; Resp 17; Pulse Ox 100% on R/A; jb4 02:15 BP 145 / 85; Pulse 96; Resp 16; Pulse Ox 99% on R/A; jb4 04:15 BP 129 / 74; Pulse 97; Resp 18; Pulse Ox 98% on R/A; jb4 05:45 BP 146 / 78; Pulse 105; Resp 17; Pulse Ox 99% on R/A; jb4 08:11 BP 148 / 89; Pulse 99; Resp 15; Pulse Ox 99% ; jl7 00:00 Body Mass Index 21.95 (54.43 kg, 157.48 cm) bb MDM: 02/27 23:47 Patient medically screened. pkl 02/28 00:36 Data reviewed: vital signs, nurses notes. ED course: Patient asleep. Vital signs stable.pkl 06:35 ED course: Talked to patient if she is able to go home. Patient said she is very weak pkl and unable to go home. 02/28 00:20 Order name: Basic Metabolic Panel; Complete Time: : pkl 02/28 00:20 Order name: CBC with Diff; Complete Time: 53 pkl 02/28 00:20 Order name: LFT's; Complete Time: : pkl 02/28 00:20 Order name: Magnesium; Complete Time: : pkl 02/28 00:20 Order name: NT PRO-BNP; Complete Time: : pkl 02/28 00:20 Order name: PT-INR; Complete Time: : pkl 02/28 00:20 Order name: Troponin (emerg Dept Use Only); Complete Time: : pkl 02/28 00:20 Order name: Lipase; Complete Time: : pkl 02/28 00:20 Order name: Sed Rate; Complete Time: :53 pkl 02/28 00:38 Order name: UDS; Complete Time: 03:36 pkl 02/28 01:05 Order name: CBC Smear Scan; Complete Time: 01:53 EDMS 02/28 02:10 Order name: Urine Dipstick--Ancillary (enter results); Complete Time: 03:36 ds4 02/28 03:38 Order name: Urine Microscopic Only; Complete Time: 04:26 mw2 02/28 03:38 Order name: Urine Culture mw2 02/28 08:10 Order name: CBC with Automated Diff EDMS 02/28 08:10 Order name: CBC with Automated Diff EDMS 02/28 08:10 Order name: Comprehensive Metabolic Panel EDMS 02/28 08:10 Order name: Comprehensive Metabolic Panel EDMS 02/28 08:10 Order name: Lipid Profile EDMS 02/28 08:10 Order name: Lipid Profile EDMS 02/28 08:10 Order name: Protime (+INR) EDMS 02/28 08:10 Order name: Protime (+INR) EDMS 02/28 08:10 Order name: PTT, Activated Partial Thromb EDMS 02/28 08:10 Order name: PTT, Activated Partial Thromb EDMS 02/28 08:10 Order name: Troponin I EDMS 02/28 08:11 Order name: Troponin I EDMS 02/28 08:11 Order name: Troponin I EDMS 02/28 08:12 Order name: C-Reactive Protein EDMS 02/28 08:12 Order name: Lactate EDMS 02/28 08:12 Order name: T4 Free EDMS 02/28 00:20 Order name: XRAY Chest (1 view) pkl 02/28 00:20 Order name: EKG; Complete Time: 00:22 pkl 02/28 00:20 Order name: Cardiac monitoring; Complete Time: 00:25 pkl 02/28 00:20 Order name: EKG - Nurse/Tech; Complete Time: 00:25 pkl 02/28 00:20 Order name: IV Saline Lock; Complete Time: 00:45 pkl 02/28 00:20 Order name: Labs collected and sent; Complete Time: 00:45 pkl 02/28 00:20 Order name: O2 Per Protocol; Complete Time: 00:25 pkl 02/28 00:20 Order name: O2 Sat Monitoring; Complete Time: 00:25 pkl 02/28 08:10 Order name: CONS Pharmacy Consult EDMS 02/28 08:10 Order name: Regular EDMS 02/28 08:12 Order name: Thyroid Stimulating Hormone EDMS 02/28 08:12 Order name: Vitamin B12 Level EDMS 02/28 08:12 Order name: Sedimentation Rate, [place] EDMS 02/28 08:12 Order name: Sedimentation Rate, [place] EDMS 02/28 08:12 Order name: Cortisol EDMS 02/28 09:10 Order name: Glucose, Ancillary Testing EDMS Administered Medications: 00:48 Drug: NS 0.9% 500 ml Route: IV; Rate: bolus; Site: left forearm; jb4 01:22 Follow up: Response: No adverse reaction; IV Status: Completed infusion jb4 01:22 Drug: NS 0.9% 1000 ml Route: IV; Rate: 100 ml/hr; Site: left forearm; jb4 08:13 Follow up: IV Status: Completed infusion jl7 02:10 Drug: K-Dur 40 mEq Route: PO; jb4 08:13 Follow up: Response: No adverse reaction jl7 Disposition: 02/29/20 06:40 Hospitalization ordered by Swapna Anderson for Observation. Preliminary diagnosis is Chest pain. Generaliized weakness. Difficulty ambulating. - Bed requested for Telemetry/MedSurg (observation). - Status is Observation. hb - Condition is Stable. - Problem is new. - Symptoms are unchanged. Signatures: Dispatcher [employer] EDMT Zabrina Aleman Pin, MD MD pkl Bethany Baker, RN RN bb Cierra Briggs, RN RN Blane Babin, RN RN jb4 Tigre Ferguson, RN RN ja1 Wes Figueroa RN jl7 Corrections: (The following items were deleted from the chart) 08:23 06:40 Hospitalization Ordered by Swapna Anderson MD for Observation. Preliminary bd diagnosis is Chest pain. Generaliized weakness. Difficulty ambulating. Bed requested for Telemetry/MedSurg (observation). Status is Observation. Condition is Stable. Problem is new. Symptoms are unchanged. pkl 08:23 08:23 02/29/2020 06:40 Hospitalization Ordered by Swapna Anderson MD for Observation. bd Preliminary diagnosis is Chest pain. Generaliized weakness. Difficulty ambulating. Bed requested for [facility] ER HOLD. Status is Observation. Condition is Stable. Problem is new. Symptoms are unchanged. bd 09:09 08:23 02/29/2020 06:40 Hospitalization Ordered by Swapna Anderson MD for Observation. ja1 Preliminary diagnosis is Chest pain. Generaliized weakness. Difficulty ambulating. Bed requested for [facility] ER HOLD. Status is Observation. Condition is Stable. Problem is new. Symptoms are unchanged. bd 09:55 09:09 02/29/2020 06:40 Hospitalization Ordered by Swapna Anderson MD for Observation. hb Preliminary diagnosis is Chest pain. Generaliized weakness. Difficulty ambulating. Bed requested for Telemetry/MedSurg (observation). Status is Observation. Condition is Stable. Problem is new. Symptoms are unchanged. ja1
[2020-02-29] MEDS ORDERED: ONDANSETRON 4 MG/2 ML VIAL IV PRN (08:07)
[2020-02-29] MEDS ORDERED: ACETAMINOPHEN 500 MG TAB PO PRN (08:07)
[2020-02-29] MEDS ORDERED: MORPHINE 2 MG/ML SYR IV PRN (08:07)
--- NOTE | 2020-02-29 08:17 | P.HP ---
Certification for Inpatient Patient admitted to: Observation With expected LOS: <2 Midnights Patient will require the following post-hospital care: None Practitioner: I am a practitioner with admitting privileges, knowledge of patient current condition, hospital course, and medical plan of care. Services: Services provided to patient in accordance with Admission requirements found in Title 42 Section 412.3 of the Code of Federal Regulations Patient History Date of Service: 02/29/20 Reason for admission: CHEST PAIN RULE OUT ACUTE CORONARY SYNDROME/FATIGUE/DEPRESSION History of Present Illness: PATIENT IS A 59-YEAR-OLD FEMALE CAME SINCE THE HOSPITAL WITH FATIGUE AND WEAKNESS. SHE HAS ALSO BEEN HAVING SOME PRESSURE ON HER CHEST. SHE SAID A BROADER AND. SHE HAS BEEN FEELING REALLY DOWN AND DEPRESSED WELL. SHE WAS BROUGHT INTO THE EMERGENCY ROOM IF HER WORKUP IS BEEN FAIRLY UNREMARKABLE. SHE IS SLIGHTLY ANEMIC AND SHE LOOKS LIKE SHE HAS ACTIVE PSORIATIC LESIONS DIFFUSELY ON HER SCAN. SHE ALSO HAS A HISTORY OF PSORIATIC ARTHRITIS; HOWEVER, SHE IS NOT TAKE ANY MEDICATION FOR IT. SHE SAY SHE HAS HAD A ROUGH YEAR. SHE HAS HAD A FRIEND WHO IS COMMITTED SUICIDE. SHE IS DEPRESSED BUT SHE HAS KNOWN THOUGHT OF SUICIDE IN DOES NOT HAVE A PLAN. SHE IS FRUSTRATED WITH NOT BEING ABLE TO DO MUCH OF ANYTHING EXCEPT STAY AT HOME BECAUSE OF HER MEDICAL HISTORY. AT THIS TIME SHE WILL BE ADMITTED TO THE HOSPITAL FOR FURTHER WORKUP. I DOUBT SHE HAS CARDIAC CHEST PAIN. WE WILL DO SERIAL TROPONINS AND EKG FOR FURTHER EVALUATION. Allergies No Known Allergies Allergy (Uncoded 12/19/17 18:03) Unknown Home Medications: Metformin ER [Glucophage ER*] 1,000 mg PO BID 12/19/17 Sertraline [Zoloft*] 150 mg PO DAILY 12/19/17 glipiZIDE [Glipizide] 10 mg PO BID 12/19/17 Ferrous Sulfate [Iron] 325 mg PO BID #60 tablet 02/09/18 Pantoprazole [Protonix Tab*] 40 mg PO DAILY #30 tab 02/09/18 - Past Medical/Surgical History Diabetic: Yes -: diabetes -: anemia -: psoriatic arthitis -: I & D for spider bite - Family History Sister Medical History: Heart disease Notes: had open heart surgery - Social History Smoking Status: Former smoker Alcohol use: Yes CD- Drugs: No Caffeine use: No Review of Systems 10-point ROS is otherwise unremarkable Physical Examination - Vital Signs Temperature: 98 F Blood Pressure: 140/70 Pulse: 88 Respirations: 18 Pulse Ox (%): 96 - Physical Exam General: Alert, In no apparent distress, Oriented x3 HEENT: Atraumatic, PERRLA, Mucous membr. moist/pink, EOMI, Sclerae nonicteric Neck: Supple, 2+ carotid pulse no bruit, No LAD, Without JVD or thyroid abnormality Respiratory: Clear to auscultation bilaterally, Normal air movement Cardiovascular: Regular rate/rhythm, Normal S1 S2 Gastrointestinal: Normal bowel sounds, No tenderness Musculoskeletal: No tenderness Integumentary: No rashes Neurological: Normal gait, Normal speech, Normal strength at 5/5 x4 extr, Normal tone, Normal affect Lymphatics: No axilla or inguinal lymphadenopathy - Studies Laboratory Data (last 24 hrs) 02/29/20 00:38: PT 11.7, INR 0.99 02/29/20 00:38: WBC 11.6 H, Hgb 9.9 L, Hct 30.9 L, Plt Count 558 H 02/29/20 00:38: Sodium 135 L, Potassium 3.2 L, BUN 9, Creatinine 0.68, Glucose 263 H, Magnesium 1.9, Total Bilirubin 0.4, AST 13 L, ALT 11 L, Alkaline Phosphatase 185 H, Lipase 198 Assessment & Plan - Problems (Diagnosis) (1) Chest pain, rule out acute myocardial infarction Current Visit: Yes Status: Acute (2) Psoriatic arthritis Current Visit: Yes Status: Acute (3) Anemia of chronic disease Current Visit: Yes Status: Acute (4) Essential (primary) hypertension Onset Date: 12/22/17 Current Visit: No Status: Acute (5) Major depressive disorder Onset Date: 12/22/17 Current Visit: No Status: Acute (6) Psoriasis Onset Date: 12/22/17 Current Visit: No Status: Chronic (7) Type 2 diabetes mellitus without complications Onset Date: 12/22/17 Current Visit: No Status: Chronic Qualifiers: - Plan 1. Serial troponins and EKG 2. Inflammatory markers; thyroid and cortisol level check as well 3. Echocardiogram and possible outpatient stress test in a.m. 4. Anti-platelet therapy, anti coagulation, beta-jeri, statin, and O2 as needed 5. IV morphine for pain 6. Nitro p.r.n. Discharge Plan: Home Plan to discharge in: 24 Hours - Advance Directives Does patient have a Living Will: No Does patient have a Durable POA for Healthcare: No - Code Status/Comfort Care Code Status Assessed: Yes Code Status: Full Code Critical Care: No Time Spent Managing PTS Care (In Minutes): 45
[2020-02-29] MEDS: ESCITALOPRAM 20 MG TAB PO SCH (09:00)
--- NOTE | 2020-02-29 09:02 | RAD REPORT ---
EXAM DESCRIPTION: RAD - Chest Single View - 02/29/2020 12:48 am CLINICAL HISTORY: CHEST PAIN Chest pain. COMPARISON: Chest Single View dated 02/08/2018; Chest Single View dated 02/03/2018; Chest Single View dated 09/21/2017 FINDINGS: Portable technique limits examination quality. The lungs are grossly clear. The heart is normal in size. No displaced fractures. IMPRESSION: No acute intrathoracic process suspected.
[2020-02-29] MEDS ORDERED: INFLUENZA VACCINE (for 3y+) 0.5 ML DOSE IMVAC ONE (10:00)
[2020-02-29] MEDS: NA CHLORIDE 0.9% 1,000 ML IV SCH (10:33)
[2020-02-29 12:26] VITALS: BMI 21.9
--- NOTE | 2020-02-29 16:09 | EKG ---
Test Date: 2020-02-29 Test Time: 00:05:21 Batch Mixer Operator: GEOFF MEASUREMENT RESULTS: Intervals: Rate: 103 IA: 142 QRSD: 68 QT: 348 QTc: 455 Waldo: P: 71 IA: 142 QRS: 64 T: 66 INTERPRETIVE STATEMENTS: Sinus tachycardia Otherwise normal ECG Compared to ECG 02/08/2018 09:08:03 Sinus rhythm no longer present Electronically Signed On 02-29-20 16:07:55 CDT by Jesus Fernandes
[2020-02-29] MEDS: glipiZIDE 5 MG TAB PO SCH (16:52)
[2020-02-29] MEDS: clonazePAM 0.5 MG TAB PO ONE ×2 (19:00→20:47)
[2020-02-29] MEDS: ATORVASTATIN 10 MG TAB PO SCH (20:46)
[2020-02-29] MEDS: GABAPENTIN 100 MG CAP PO SCH (20:46)
[2020-02-29] MEDS: METFORMIN ER 500 MG TAB PO SCH (20:47)
[2020-02-29] MEDS ORDERED: FERROUS SULFATE 325 MG TAB PO SCH (21:00)
[2020-02-29] MEDS ORDERED: FERROUS SULFATE 65 MG PO SCH (21:00)
[2020-03-01] MEDS: NA CHLORIDE 0.9% 1,000 ML IV SCH ×2 (03:53→14:52)
[2020-03-01 04:29] LABS: Absolute Lymphocytes (CBC) 4.3 K/uL (0.7-4.9); Basophils % 1.2 % (0-1.3); Hematocrit 29.5 % (36.0-45.0); Lymphocytes % 43.3 % (15.3-44.8); MPV 7.3 fL (7.6-11.3); RBC Red Blood Cell Count 4.47 M/uL (3.86-4.86)
[2020-03-01 04:35] LABS: Protime INR 1.09
[2020-03-01 04:47] LABS: ALT/SGPT 11 U/L (12-78); AST/SGOT 11 U/L (15-37); Albumin 2.5 g/dL (3.4-5.0); Alkaline Phosphatase 153 U/L (45-117); BUN Blood Urea Nitrogen 9 mg/dL (7-18); Bicarbonate 27 mmol/L (21-32); Bilirubin Total 0.5 mg/dL (0.2-1.0); Glucose Level 193 mg/dL (74-106); HDL Cholesterol 55 mg/dL (40-60); LDL Cholesterol, Calculated 56 (<130); Potassium 3.4 mmol/L (3.5-5.1); Protein, Total 8.3 g/dL (6.4-8.2); Sodium Level 137 mmol/L (136-145)
[2020-03-01 05:14] LABS: C-Reactive Protein 22.2 mg/L (<3.00); Folic Acid, (Folate) 6.4 ng/mL (3.1-17.5); Thyroid Stimulating Hormone 1.45 uIU/mL (0.360-3.740)
[2020-03-01] MEDS ORDERED: HYDROCORTISONE SUC 100 MG INJ IV ONE (07:56)
[2020-03-01] MEDS: METFORMIN ER 500 MG TAB PO SCH ×2 (08:20→20:08)
[2020-03-01] MEDS: ESCITALOPRAM 20 MG TAB PO SCH (08:21)
[2020-03-01] MEDS: GABAPENTIN 100 MG CAP PO SCH ×3 (08:21→20:08)
[2020-03-01] MEDS: lisinopriL 5 MG TAB PO SCH (08:21)
[2020-03-01] MEDS: PANTOPRAZOLE 40MG TABLET PO SCH (08:21)
[2020-03-01] MEDS: glipiZIDE 5 MG TAB PO SCH ×2 (08:21→16:39)
[2020-03-01] MEDS ORDERED: CYANOCOBALAMIN 1000MCG/ML INJ IM ONE (08:31)
[2020-03-01] MEDS ORDERED: HOME MED 1 EA UNK (Lovastatin [Lovastatin] 10 MG) PO SCH (09:00)
[2020-03-01] MEDS ORDERED: HOME MED 1 EA UNK (Lisinopril [Zestril] 2.5 MG) PO SCH (09:00)
[2020-03-01] MEDS ORDERED: FERROUS SULFATE 325 MG TAB PO SCH (09:00)
[2020-03-01] MEDS: SOD FERRIC GLUC COMPLX/SUCROSE 125 MG in NA CHLORIDE 0.9% 100 ML IV SCH ×2 (09:00→11:03)
[2020-03-01] MEDS: clonazePAM 0.5 MG TAB PO SCH ×3 (10:03→20:09)
[2020-03-01] MEDS: FOLIC ACID 1 MG in NA CHLORIDE 0.9% 50 ML IV SCH (10:30)
--- NOTE | 2020-03-01 11:28 | EKG ---
Test Date: 2020-02-29 Test Time: 18:13:33 Dray Truck Driver: JULIA MEASUREMENT RESULTS: Intervals: Rate: 96 ND: 142 QRSD: 68 QT: 348 QTc: 439 Gustine: P: 59 ND: 142 QRS: 39 T: 62 INTERPRETIVE STATEMENTS: Normal sinus rhythm Normal ECG Compared to ECG 02/29/2020 00:05:21 Sinus tachycardia no longer present Electronically Signed On 03-01-20 11:27:08 CDT by Jesus Fernandes
[2020-03-01] MEDS: HYDROCORTISONE 1 % OINT 30GM TOP SCH ×2 (14:54→20:09)
[2020-03-01] MEDS: HYDROCORTISONE SUC 100 MG INJ IV SCH (16:39)
[2020-03-01] MEDS: ATORVASTATIN 10 MG TAB PO SCH (20:08)
[2020-03-02] MEDS: HYDROCORTISONE SUC 100 MG INJ IV SCH ×3 (00:39→18:51)
[2020-03-02] MEDS: NA CHLORIDE 0.9% 1,000 ML IV SCH ×3 (01:00→18:53)
[2020-03-02] MEDS: glipiZIDE 5 MG TAB PO SCH ×2 (09:17→18:50)
[2020-03-02] MEDS: METFORMIN ER 500 MG TAB PO SCH ×2 (09:17→20:35)
[2020-03-02] MEDS: lisinopriL 5 MG TAB PO SCH (09:18)
[2020-03-02] MEDS: GABAPENTIN 100 MG CAP PO SCH ×3 (09:18→20:35)
[2020-03-02] MEDS: ESCITALOPRAM 20 MG TAB PO SCH (09:18)
[2020-03-02] MEDS: PANTOPRAZOLE 40MG TABLET PO SCH (09:19)
[2020-03-02] MEDS: HYDROCORTISONE 1 % OINT 30GM TOP SCH ×2 (09:21→15:15)
[2020-03-02] MEDS: FOLIC ACID 1 MG in NA CHLORIDE 0.9% 50 ML IV SCH (09:26)
[2020-03-02] MEDS: clonazePAM 0.5 MG TAB PO SCH ×3 (09:44→20:35)
[2020-03-02] MEDS: SOD FERRIC GLUC COMPLX/SUCROSE 125 MG in NA CHLORIDE 0.9% 100 ML IV SCH (09:45)
[2020-03-02] MEDS: ATORVASTATIN 10 MG TAB PO SCH (20:35)
[2020-03-03] MEDS: HYDROCORTISONE SUC 100 MG INJ IV SCH ×2 (00:29→08:26)
[2020-03-03 00:41] VITALS: O2SAT 94
[2020-03-03] MEDS: NA CHLORIDE 0.9% 1,000 ML IV SCH (03:13)
--- NOTE | 2020-03-03 05:21 | P.PN ---
Subjective Date of Service: 03/01/20 Patient still with an arthritic pain diffusely. She is having exacerbations of her psoriatic arthritis. Continues to have chest pain. Patient has a lot of psychiatric issues as well. She is suffering from major depression as well. She does not take her medications for her psoriasis or psoriatic arthritis. She has diffuse flare-up of her psoriasis which looks like she has secondary cellulitis as well. Will consider antibiotic therapy if IV steroids are not improving her lesions. Review of Systems 10-point ROS is otherwise unremarkable Physical Examination - Vital Signs Temperature: 97.8 F Blood Pressure: 126/65 Pulse: 84 Respirations: 15 Pulse Ox (%): 99 - Physical Exam General: Alert, In no apparent distress, Oriented x3 HEENT: Other (Psoriasis to the scalp) Respiratory: Clear to auscultation bilaterally, Normal air movement Cardiovascular: Regular rate/rhythm, Normal S1 S2, No murmurs Gastrointestinal: Normal bowel sounds, Soft and benign, Non-distended, No tenderness Musculoskeletal: No clubbing, No swelling, No tenderness Integumentary: Tenderness/swelling, Erythema, Warmth, Other (Multiple psoriatic plaquing on the abdomen and the back ) Lymphatics: No axilla or inguinal lymphadenopathy - Studies Medications List Reviewed: Yes Assessment & Plan - Problems (Diagnosis) (1) Chest pain, rule out acute myocardial infarction Current Visit: Yes Status: Acute (2) Psoriatic arthritis Current Visit: Yes Status: Acute (3) Anemia of chronic disease Current Visit: Yes Status: Acute (4) Essential (primary) hypertension Onset Date: 12/22/17 Current Visit: No Status: Acute (5) Major depressive disorder Onset Date: 12/22/17 Current Visit: No Status: Acute (6) Psoriasis Onset Date: 12/22/17 Current Visit: No Status: Chronic (7) Type 2 diabetes mellitus without complications Onset Date: 12/22/17 Current Visit: No Status: Chronic Qualifiers: (8) Cellulitis Current Visit: Yes Status: Acute - Plan 1. Serial troponins and EKG were unremarkable. Chest pain probably related to psoriatic arthritis 2. Inflammatory markers elevated. also with minor B12 and folic acid deficiency. The inflammatory markers probably related to flare-up of her psoriasis and psoriatic arthritis; continue IV steroids. Consider antibiotics if not improving 3. Echocardiogram and possible outpatient stress test 4. Antidepressants along with anxiolytics 5. GI and DVT prophylaxis Discharge Plan: Home Plan to discharge in: Greater than 2 days - Advance Directives Does patient have a Living Will: No Does patient have a Durable POA for Healthcare: No - Code Status/Comfort Care Code Status: Full Code Critical Care: No Time Spent Managing PTS Care (In Minutes): 35
--- NOTE | 2020-03-03 05:24 | P.PN ---
Subjective Date of Service: 03/02/20 Patient doing well with no new complaints. She does feel better and her psoriatic lesions are slightly improved. IV steroids is helping her but may add minocycline as well to assist in the healing process. Continue with antidepressant and anxiolytics going for. She still is hurting and ambulating very slowly. Anticipate discharge tomorrow morning. Review of Systems 10-point ROS is otherwise unremarkable Physical Examination - Vital Signs Temperature: 97.8 F Blood Pressure: 126/65 Pulse: 84 Respirations: 15 Pulse Ox (%): 99 - Physical Exam General: Alert, In no apparent distress, Oriented x3 Respiratory: Clear to auscultation bilaterally, Normal air movement Cardiovascular: Regular rate/rhythm, Normal S1 S2, No murmurs Gastrointestinal: Normal bowel sounds, Soft and benign, Non-distended, No tenderness Musculoskeletal: No clubbing, No swelling, No tenderness Neurological: Sensation intact, Cranial nerves 3-12 intact - Studies Medications List Reviewed: Yes Assessment & Plan - Problems (Diagnosis) (1) Chest pain, rule out acute myocardial infarction Current Visit: Yes Status: Acute (2) Psoriatic arthritis Current Visit: Yes Status: Acute (3) Anemia of chronic disease Current Visit: Yes Status: Acute (4) Essential (primary) hypertension Onset Date: 12/22/17 Current Visit: No Status: Acute (5) Major depressive disorder Onset Date: 12/22/17 Current Visit: No Status: Acute (6) Psoriasis Onset Date: 12/22/17 Current Visit: No Status: Chronic (7) Type 2 diabetes mellitus without complications Onset Date: 12/22/17 Current Visit: No Status: Chronic Qualifiers: (8) Cellulitis Current Visit: Yes Status: Acute - Plan Continue with plan of care as mentioned below 1. Serial troponins and EKG were unremarkable. Chest pain probably related to psoriatic arthritis 2. Inflammatory markers elevated. also with minor B12 and folic acid deficiency. The inflammatory markers probably related to flare-up of her psoriasis and psoriatic arthritis; continue IV steroids. Add minocycline to regimen 3. Outpatient Echocardiogram and possible outpatient stress test 4. Antidepressants along with anxiolytics 5. GI and DVT prophylaxis Discharge Plan: Home Plan to discharge in: 24 Hours - Advance Directives Does patient have a Living Will: No Does patient have a Durable POA for Healthcare: No - Code Status/Comfort Care Code Status: Full Code Critical Care: No Time Spent Managing PTS Care (In Minutes): 35
[2020-03-03 06:44] LABS: Absolute Lymphocytes (CBC) 3.1 K/uL (0.7-4.9); Basophils % 0.8 % (0-1.3); Lymphocytes % 33.4 % (15.3-44.8); MPV 7.3 fL (7.6-11.3); RBC Red Blood Cell Count 4.25 M/uL (3.86-4.86)
[2020-03-03 07:01] LABS: BUN Blood Urea Nitrogen 8 mg/dL (7-18); Bicarbonate 28 mmol/L (21-32); Glucose Level 264 mg/dL (74-106); Potassium 3.3 mmol/L (3.5-5.1); Sodium Level 139 mmol/L (136-145)
--- NOTE | 2020-03-03 07:56 | P.DS ---
Discharge Date: 03/03/20 Disposition: ROUTINE DISCHARGE Discharge Condition: GOOD Reason for Admission: CHEST PAIN RULE OUT ACUTE CORONARY SYNDROME/FATIGUE/DEPRESSION - Problems (1) Chest pain, rule out acute myocardial infarction Status: Acute (2) Psoriatic arthritis Status: Acute (3) Anemia of chronic disease Status: Acute (4) Essential (primary) hypertension Onset Date: 12/22/17 Status: Acute (5) Major depressive disorder Onset Date: 12/22/17 Status: Acute (6) Psoriasis Onset Date: 12/22/17 Status: Chronic (7) Type 2 diabetes mellitus without complications Onset Date: 12/22/17 Status: Chronic Qualifiers: (8) Cellulitis Status: Acute Brief History of Present Illness: PATIENT IS A 59-YEAR-OLD FEMALE CAME SINCE THE HOSPITAL WITH FATIGUE AND WEAKNESS. SHE HAS ALSO BEEN HAVING SOME PRESSURE ON HER CHEST. SHE SAID A BROADER AND. SHE HAS BEEN FEELING REALLY DOWN AND DEPRESSED WELL. SHE WAS BROUGHT INTO THE EMERGENCY ROOM IF HER WORKUP IS BEEN FAIRLY UNREMARKABLE. SHE IS SLIGHTLY ANEMIC AND SHE LOOKS LIKE SHE HAS ACTIVE PSORIATIC LESIONS DIFFUSELY ON HER SCAN. SHE ALSO HAS A HISTORY OF PSORIATIC ARTHRITIS; HOWEVER, SHE IS NOT TAKE ANY MEDICATION FOR IT. SHE SAY SHE HAS HAD A ROUGH YEAR. SHE HAS HAD A FRIEND WHO IS COMMITTED SUICIDE. SHE IS DEPRESSED BUT SHE HAS KNOWN THOUGHT OF SUICIDE IN DOES NOT HAVE A PLAN. SHE IS FRUSTRATED WITH NOT BEING ABLE TO DO MUCH OF ANYTHING EXCEPT STAY AT HOME BECAUSE OF HER MEDICAL HISTORY. AT THIS TIME SHE WILL BE ADMITTED TO THE HOSPITAL FOR FURTHER WORKUP. I DOUBT SHE HAS CARDIAC CHEST PAIN. WE WILL DO SERIAL TROPONINS AND EKG FOR FURTHER EVALUATION. Hospital Course: Patient continues to do well with no new complaints. Patient's erythema has improved. Symptoms are much better. Continue with oral and topical steroids at discharge. Patient needs to follow with a permastone installer as well as a ore roaster. However, she does not have insurance. She will need to see Cardiology as well for further cardiac workup to make shore that her chest pain was from anxiety disorder and not from cardiac issues. At this time, patient is stable for discharge home. Vital Signs/Physical Exam: Temp Pulse Resp BP Pulse Ox 97.8 F 84 15 126/65 99 03/03/20 05:24 03/03/20 05:24 03/03/20 05:24 03/03/20 05:24 03/03/20 05:24 General: Alert, In no apparent distress, Oriented x3 Laboratory Data at Discharge: WBC 9.2 K/uL (4.3-10.9) 03/03/20 06:30 Hgb 9.1 g/dL (12.0-15.0) L 03/03/20 06:30 Hct 28.0 % (36.0-45.0) L 03/03/20 06:30 Plt Count 468 K/uL (152-406) H 03/03/20 06:30 PT 12.8 SECONDS (9.5-12.5) H 03/01/20 03:49 INR 1.09 03/01/20 03:49 APTT 29.5 SECONDS (24.3-36.9) 03/01/20 03:49 Sodium 139 mmol/L (136-145) 03/03/20 06:30 Potassium 3.3 mmol/L (3.5-5.1) L 03/03/20 06:30 BUN 8 mg/dL (7-18) 03/03/20 06:30 Creatinine 0.59 mg/dL (0.55-1.3) 03/03/20 06:30 Glucose 264 mg/dL (74-106) H 03/03/20 06:30 Magnesium 1.9 mg/dL (1.8-2.4) 02/29/20 00:38 Total Bilirubin 0.5 mg/dL (0.2-1.0) 03/01/20 03:49 AST 11 U/L (15-37) L 03/01/20 03:49 ALT 11 U/L (12-78) L 03/01/20 03:49 Alkaline Phosphatase 153 U/L (45-117) H 03/01/20 03:49 Troponin I < 0.02 ng/mL (0.0-0.045) 02/29/20 16:11 Triglycerides 94 mg/dL (<150) 03/01/20 03:49 Cholesterol 130 mg/dL (<200) 03/01/20 03:49 HDL Cholesterol 55 mg/dL (40-60) 03/01/20 03:49 Cholesterol/HDL Ratio 2.36 03/01/20 03:49 Lipase 198 U/L (73-393) 02/29/20 00:38 Home Medications: Metformin ER [Glucophage ER*] 1,000 mg PO BID 12/19/17 glipiZIDE [Glipizide] 10 mg PO BID 12/19/17 Pantoprazole [Protonix Tab*] 40 mg PO DAILY #30 tab 02/09/18 Ferrous Sulfate [Iron] 65 mg PO BID 02/29/20 Gabapentin [Neurontin*] 100 mg PO TID 02/29/20 Lisinopril [Zestril] 2.5 mg PO DAILY 02/29/20 Lovastatin 10 mg PO DAILY 02/29/20 Cyanocobalamin (Vitamin B-12) [Vitamin B12] 5,000 mcg PO DAILY #30 tab.rapdis 03/03/20 Escitalopram Oxalate [Lexapro] 20 mg PO DAILY #30 tablet 03/03/20 Ferrous Sulfate [Ferrous Sulfate*] 325 mg PO BID #60 tab 03/03/20 Folic Acid 1 mg PO DAILY #30 tablet 03/03/20 Hydrocortisone Butyrate/Emoll [Locoid 0.1% Lipocream] 60 gm TP DAILY #1 cream..g. 03/03/20 Methylprednisolone [Medrol dosepack] 4 mg PO DIRECTED #1 francisco 03/03/20 Minocycline HCl 100 mg PO BID #14 03/03/20 clonazePAM [Klonopin*] 0.5 mg PO TID #60 tab 03/03/20 New Medications: Ferrous Sulfate [Ferrous Sulfate*] 325 mg PO BID #60 tab Folic Acid 1 mg PO DAILY #30 tablet clonazePAM [Klonopin*] 0.5 mg PO TID #60 tab Escitalopram Oxalate [Lexapro] 20 mg PO DAILY #30 tablet Hydrocortisone Butyrate/Emoll [Locoid 0.1% Lipocream] 60 gm TP DAILY #1 cream..g. Methylprednisolone [Medrol dosepack] 4 mg PO DIRECTED #1 francisco Minocycline HCl 100 mg PO BID #14 Cyanocobalamin (Vitamin B-12) [Vitamin B12] 5,000 mcg PO DAILY #30 tab.rapdis Patient Discharge Instructions: -OK TO DC IV AND DC HOME. -FOLLOW-UP WITH PRIMARY CARE PROVIDER IN 1-2 WEEKS. -FOLLOW-UP WITH CARDIOLOGY IN 1-2 WEEKS. - FOLLOW WITH RHEUMATOLOGY IN 1-2 WEEKS. -RETURN TO THE ER IF SYMPTOMS WORSEN. - CALL or TEXT DR. YARBROUGH AT [phone] IF ANY QUESTIONS REGARDING HOSPITAL STAY. -PLEASE CALL THE FLOOR AT [phone] IF ANY MEDICATION OR NURSING QUESTIONS. Diet: Regular Activity: Fall precautions Followup: [facility] [Provider Group] - 1-2 Weeks (call to schedule an appointment ) Unknown,U [Primary Care Provider] - Time spent managing pt's care (in minutes): 35
[2020-03-03] MEDS: ESCITALOPRAM 20 MG TAB PO SCH (08:24)
[2020-03-03] MEDS: glipiZIDE 5 MG TAB PO SCH (08:25)
[2020-03-03] MEDS: PANTOPRAZOLE 40MG TABLET PO SCH (08:25)
[2020-03-03] MEDS: clonazePAM 0.5 MG TAB PO SCH (08:25)
[2020-03-03] MEDS: lisinopriL 5 MG TAB PO SCH (08:25)
[2020-03-03] MEDS: GABAPENTIN 100 MG CAP PO SCH (08:25)
[2020-03-03] MEDS: METFORMIN ER 500 MG TAB PO SCH (08:27)
[2020-03-03] MEDS: MINOCYCLINE HCL 50 MG CAP PO SCH ×2 (08:27→09:00)
[2020-03-03 08:29] VITALS: BP 126/65; TEMP 97.6
== END 2020-03-03 11:04 | disposition home or self-care (01) | DRG 546 ==
LOC: ER 23:40 → OBSVTOIN 02-29 08:07 → ERHOLD 02-29 08:07 → 2ND 02-29 09:48
PROVIDERS: ADMIT Hospitalist; ATTEND Hospitalist
DX: L40.50 Arthropathic psoriasis, unspecified (principal); L03.90 Cellulitis, unspecified; E11.9 Type 2 diabetes mellitus without complications; F32.9 Major depressive disorder, single episode, unspecified; D63.8 Anemia in other chronic diseases classified elsewhere; I10 Essential (primary) hypertension; L40.9 Psoriasis, unspecified; Z79.899 Other long term (current) drug therapy; Z87.891 Personal history of nicotine dependence; Z79.84 Long term (current) use of oral hypoglycemic drugs; Z20.828 Contact with and (suspected) exposure to other viral communicable diseases
CPT/HCPCS: 36415; 71045; 80048; 80053; 80061; 80076; 80307; 81003; 81015; 82533; 82607; 82728; 82746; 82947; 83540; 83605; 83690; 83735; 83880; 84439; 84443; 84484; 85025; 85610; 85652; 85730; 86140; 87086; 87088; 93005; 96360; 96361; 99284; J1720; J2916; J3420; J7030; U0002

== ENCOUNTER 2020-11-14 03:35 | Emergency (ER) | payer SELFPAY ==
[2020-11-14 04:18] LABS: Absolute Lymphocytes (CBC) 4.6 K/uL (0.7-4.9); Basophils % 1.1 % (0-1.3); Hematocrit 34.2 % (36.0-45.0); Lymphocytes % 41.6 % (15.3-44.8); MPV 7.3 fL (7.6-11.3); RBC Red Blood Cell Count 4.74 M/uL (3.86-4.86)
[2020-11-14] MEDS ORDERED: NA CHLORIDE 0.9% 1,000 ML ONE ×2 (04:30→06:18)
[2020-11-14 04:35] LABS: Albumin 2.9 g/dL (3.4-5.0); Bilirubin Total 0.5 mg/dL (0.2-1.0); Potassium 3.2 mmol/L (3.5-5.1); Protein, Total 8.6 g/dL (6.4-8.2)
[2020-11-14] MEDS ORDERED: METOCLOPRAMIDE 10 MG/2mL INJ ONE (04:40)
[2020-11-14] MEDS ORDERED: KETOROLAC 30 MG/ML INJ ONE (04:40)
[2020-11-14] MEDS ORDERED: METHYLPREDNISOLONE 125 MG INJ ONE (04:40)
[2020-11-14] MEDS ORDERED: POTASSIUM CL SA 10 MEQ TAB PO ONE (05:20)
[2020-11-14] MEDS ORDERED: MECLIZINE HCL 12.5 MG TAB ONE (06:27)
[2020-11-14 06:49] LABS: Urine Blood Negative (Negative); Urine Glucose Trace (Negative); Urine Protein Negative (Negative)
--- NOTE | 2020-11-14 07:00 | ER ---
Nurse's Notes [facility] Name: Kirsten Barros Age: 60 yrs Sex: Female : 1960 Arrival Date: 11/14/2020 Time: 03:38 Bed 3 Private MD: Diagnosis: Other peripheral vertigo, bilateral;Hypokalemia;Dehydration Presentation: 11/14 04:03 Ebola Screen: No symptoms or risks identified at this time. ea 04:03 Risk Assessment: Do you want to hurt yourself or someone else? Patient reports no ea desire to harm self or others. 04:04 Coronavirus screen: At this time, the client does not indicate any symptoms associated ea with coronavirus-19. Initial Sepsis Screen: Does the patient meet any 2 criteria? No. Patient's initial sepsis screen is negative. Does the patient have a suspected source of infection? No. Patient's initial sepsis screen is negative. 04:04 Acuity: IAN 3 ea 04:04 Method Of Arrival: Wheelchair ea 04:04 Chief complaint: Patient states: Reports she started having a headache tonight. ea Triage Assessment: 04:05 Headache History: The patient has had previous headaches. General: Appears ea uncomfortable, Behavior is appropriate for age. Pain: Pain currently is 4 out of 10 on a pain scale. Neuro: Level of Consciousness is awake, alert, obeys commands, Oriented to person, place, time. Historical: - Home Meds: 04:03 gabapentin 100 mg Oral cap 1 caps 3 times per day [Active]; glipizide 10 mg Oral tab 1 ea tab 2 times per day [Active]; Iron CR 65 mg Oral three times a day [Active]; lisinopril 2.5 mg Oral tab 1 tab once daily [Active]; lovastatin 10 mg Oral tab 1 tab once daily [Active]; metformin 1,000 mg Oral tab 1 tab 2 times per day [Active]; pantoprazole 40 mg Oral TbEC 1 tab once daily [Active]; sertraline 50 mg Oral tab 3 tabs once daily [Active]; - PMHx: 04:03 Psoriatic Arthritis; Diabetes - NIDDM; Anemia; ea - Immunization history:: Adult Immunizations up to date. - Social history:: Smoking status: unknown. - Family history:: not pertinent. Screenin:03 Abuse screen: Denies threats or abuse. Nutritional screening: No deficits noted. ea Tuberculosis screening: No symptoms or risk factors identified. Fall Risk None identified. Assessment: 04:28 General: Appears uncomfortable, Behavior is appropriate for age. Pain: Complains of ea pain in forehead. Neuro: Level of Consciousness is awake, alert, obeys commands, Oriented to person, place, time. Respiratory: Airway is patent Respiratory effort is even, unlabored, Respiratory pattern is regular, symmetrical. Derm: Skin is pink, warm \T\ dry. 05:50 Reassessment: Patient and/or family updated on plan of care and expected duration. Pain ea level reassessed. Patient is alert, oriented x 3, equal unlabored respirations, skin warm/dry/pink. 06:54 Reassessment: Patient and/or family updated on plan of care and expected duration. Pain ea level reassessed. Patient is alert, oriented x 3, equal unlabored respirations, skin warm/dry/pink. 07:10 Reassessment: Patient and/or family updated on plan of care and expected duration. Pain ea level reassessed. Patient is alert, oriented x 3, equal unlabored respirations, skin warm/dry/pink. Discharge instruction given to patient verbalized the understanding of instruction. Pt left ED via wheelchair tolerating well. Vital Signs: 04:06 BP 133 / 93; Pulse 113; Resp 20; Pulse Ox 100% ; ea 05:30 BP 138 / 78; Pulse 93; Resp 16; Temp 97.6; Pulse Ox 100% ; ea 07:12 BP 130 / 70; Pulse 88; Resp 18; Pulse Ox 99% on R/A; ea Emmanuel Coma Score: 04:10 Eye Response: spontaneous(4). Verbal Response: oriented(5). Motor Response: obeys ma2 commands(6). Total: 15. ED Course: 03:38 Patient arrived in ED. bp1 03:56 Swapna Leyva MD is Attending Physician. ma2 04:03 Arm band placed on right wrist. Patient placed in an exam room, on a stretcher, on ea pulse oximetry. 04:04 Triage completed. ea 04:04 Patient has correct armband on for positive identification. Bed in low position. Call ea light in reach. Side rails up X2. 04:15 Inserted saline lock: 20 gauge in right antecubital area, using aseptic technique. ea 04:19 CT Head Brain wo Cont In Process Unspecified. EDMS 04:23 CMP Sent. bs2 07:00 Bakari Cheema MD is Referral Physician. ma2 07:10 No provider procedures requiring assistance completed. IV discontinued, intact, ea bleeding controlled, No redness/swelling at site. Pressure dressing applied. Administered Medications: 04:24 Drug: MethylPREDNISolone Sodium Succinate 125 mg Route: IM; Site: right deltoid; ea 06:10 Follow up: Response: No adverse reaction ea 04:24 Drug: Ketorolac 30 mg Route: IVP; Site: right antecubital; ea 06:10 Follow up: Response: No adverse reaction ea 04:24 Drug: Reglan (metoCLOPramide) 10 mg Route: IVP; Site: right antecubital; ea 06:10 Follow up: Response: No adverse reaction ea 04:25 Drug: NS 0.9% 1000 ml Route: IV; Rate: 1 bolus; Site: right antecubital; ea 06:10 Follow up: IV Status: Completed infusion; IV Intake: 1000ml ea 05:56 Drug: Potassium Chloride 40 mEq Route: PO; bs2 06:10 Follow up: Response: No adverse reaction ea 05:56 Drug: NS 0.9% 1000 ml Route: IV; Rate: 1 bolus; Site: right antecubital; bs2 07:12 Follow up: Response: No adverse reaction; IV Status: Completed infusion; IV Intake: ea 1000ml 06:10 Not Given (Duplicate Order): NS 0.9% 1000 ml IV at 1 bolus Per protocol; 1000 mL bolus ea 06:30 Drug: Meclizine 25 mg Route: PO; ea 07:13 Follow up: Response: No adverse reaction ea Intake: 06:10 IV: 1000ml; Total: 1000ml. ea 07:12 IV: 1000ml; Total: 2000ml. ea Outcome: 07:00 Discharge ordered by . ma2 07:10 Discharged to home via wheelchair, with family. ea 07:10 Condition: stable 07:10 Discharge instructions given to patient, Instructed on discharge instructions, follow up and referral plans. medication usage, Demonstrated understanding of instructions, follow-up care, medications, Prescriptions given X 1. 07:12 Patient left the ED. ea Signatures: Dispatcher [employer] EDMS Brannon Zora, RN RN Swapna Blood MD MD ma2 Nahomy Mckay Bridget bs2
--- NOTE | 2020-11-14 07:00 | EDPHYS ---
Physician Documentation [facility] Name: Kirsten Barros Age: 60 yrs Sex: Female : 1960 Arrival Date: 11/14/2020 Time: 03:38 Bed 3 Private MD: ED Physician Swapna Leyva HPI: 11/14 04:10 This 60 yrs old Female presents to ER via Wheelchair with complaints of ma2 Headache. 04:10 The patient complains of pain to the forehead. Associated signs and symptoms: Pertinent ma2 negatives: altered mental status, nausea, paresthesias, Photophobia sinus congestion, vision changes, vision loss, vomiting, vertigo. Severity of symptoms: At its worst the pain was mild, in the emergency department the pain is unchanged. The patient has experienced similar episodes in the past, here with gradual headache and highhandedness, has been intermittent, she is dehydrated and not drinking water d/t of close friend last week, she has had this before, . Historical: - Home Meds: 04:03 gabapentin 100 mg Oral cap 1 caps 3 times per day [Active]; glipizide 10 mg Oral tab 1 ea tab 2 times per day [Active]; Iron CR 65 mg Oral three times a day [Active]; lisinopril 2.5 mg Oral tab 1 tab once daily [Active]; lovastatin 10 mg Oral tab 1 tab once daily [Active]; metformin 1,000 mg Oral tab 1 tab 2 times per day [Active]; pantoprazole 40 mg Oral TbEC 1 tab once daily [Active]; sertraline 50 mg Oral tab 3 tabs once daily [Active]; - PMHx: 04:03 Psoriatic Arthritis; Diabetes - NIDDM; Anemia; ea - Immunization history:: Adult Immunizations up to date. - Social history:: Smoking status: unknown. - Family history:: not pertinent. ROS: 04:10 Constitutional: Negative for fever, chills, and weight loss. ma2 04:10 All other systems are negative. Exam: 04:10 Constitutional: This is a well developed, well nourished patient who is awake, alert, ma2 and in no acute distress. Head/Face: Normocephalic, atraumatic. Eyes: Pupils equal round and reactive to light, extra-ocular motions intact. Lids and lashes normal. Conjunctiva and sclera are non-icteric and not injected. Cornea within normal limits. Periorbital areas with no swelling, redness, or edema. ENT: Nares patent. No nasal discharge, no septal abnormalities noted. Tympanic membranes are normal and external auditory canals are clear. Oropharynx with no redness, swelling, or masses, exudates, or evidence of obstruction, uvula midline. Mucous membranes moist. Neck: Trachea midline, no thyromegaly or masses palpated, and no cervical lymphadenopathy. Supple, full range of motion without nuchal rigidity, or vertebral point tenderness. No Meningismus. Chest/axilla: Normal chest wall appearance and motion. Nontender with no deformity. No lesions are appreciated. Cardiovascular: Regular rate and rhythm with a normal S1 and S2. No gallops, murmurs, or rubs. Normal PMI, no JVD. No pulse deficits. Respiratory: Lungs have equal breath sounds bilaterally, clear to auscultation and percussion. No rales, rhonchi or wheezes noted. No increased work of breathing, no retractions or nasal flaring. Abdomen/GI: Soft, non-tender, with normal bowel sounds. No distension or tympany. No guarding or rebound. No evidence of tenderness throughout. Back: No spinal tenderness. No costovertebral tenderness. Full range of motion. MS/ Extremity: Pulses equal, no cyanosis. Neurovascular intact. Full, normal range of motion. Neuro: Awake and alert, GCS 15, oriented to person, place, time, and situation. Cranial nerves II-XII grossly intact. Motor strength 5/5 in all extremities. Sensory grossly intact. Cerebellar exam normal. Normal gait. Vital Signs: 04:06 BP 133 / 93; Pulse 113; Resp 20; Pulse Ox 100% ; ea 05:30 BP 138 / 78; Pulse 93; Resp 16; Temp 97.6; Pulse Ox 100% ; ea 07:12 BP 130 / 70; Pulse 88; Resp 18; Pulse Ox 99% on R/A; ea [place] Coma Score: 04:10 Eye Response: spontaneous(4). Verbal Response: oriented(5). Motor Response: obeys ma2 commands(6). Total: 15. MDM: 03:56 Patient medically screened. ma2 04:10 Differential diagnosis: hypoglycemia, hyponatremia, migraine, sinusitis, uremia. [facility] 07:00 Data reviewed: vital signs, nurses notes. Counseling: I had a detailed discussion with [facility] the patient and/or guardian regarding: the historical points, exam findings, and any diagnostic results supporting the discharge/admit diagnosis, the presence of at least one elevated blood pressure reading (>120/80) during this emergency department visit, the need for outpatient follow up. Response to treatment: the patient's symptoms have resolved after treatment. 11/14 03:41 Order name: CBC with Diff; Complete Time: 04:54 [facility] 11/14 03:41 Order name: CMP; Complete Time: 04:54 [facility] 11/14 03:41 Order name: CT Head Brain wo Cont [facility] 11/14 04:08 Order name: Glucose, Ancillary Testing; Complete Time: 04:54 EDMS 11/14 06:48 Order name: Urine Dipstick-Ancillary; Complete Time: 07:02 EDMS Administered Medications: 04:24 Drug: MethylPREDNISolone Sodium Succinate 125 mg Route: IM; Site: right deltoid; ea 06:10 Follow up: Response: No adverse reaction ea 04:24 Drug: Ketorolac 30 mg Route: IVP; Site: right antecubital; ea 06:10 Follow up: Response: No adverse reaction ea 04:24 Drug: Reglan (metoCLOPramide) 10 mg Route: IVP; Site: right antecubital; ea 06:10 Follow up: Response: No adverse reaction ea 04:25 Drug: NS 0.9% 1000 ml Route: IV; Rate: 1 bolus; Site: right antecubital; ea 06:10 Follow up: IV Status: Completed infusion; IV Intake: 1000ml ea 05:56 Drug: Potassium Chloride 40 mEq Route: PO; bs2 06:10 Follow up: Response: No adverse reaction ea 05:56 Drug: NS 0.9% 1000 ml Route: IV; Rate: 1 bolus; Site: right antecubital; bs2 07:12 Follow up: Response: No adverse reaction; IV Status: Completed infusion; IV Intake: ea 1000ml 06:10 Not Given (Duplicate Order): NS 0.9% 1000 ml IV at 1 bolus Per protocol; 1000 mL bolus ea 06:30 Drug: Meclizine 25 mg Route: PO; ea 07:13 Follow up: Response: No adverse reaction ea Disposition Summary: 11/14/20 07:00 Discharge Ordered Location: Home ma2 Condition: Stable ma2 Diagnosis - Other peripheral vertigo, bilateral ma2 - Hypokalemia ma2 - Dehydration ma2 Followup: ma2 - With: Bakari Cheema MD - When: Tomorrow - Reason: If symptoms return, Continuance of care Discharge Instructions: - Discharge Summary Sheet ma2 - Benign Positional Vertigo ma2 - Dehydration, Adult ma2 - Potassium Content of Foods ma2 Forms: - Medication Reconciliation Form ma2 - Thank You Letter ma2 - Antibiotic Education ma2 - Prescription Opioid Use ma2 Prescriptions: - Reglan 10 mg Oral Tablet - take 1 tablet by ORAL route every 6 hours take 30 minutes before meals and at ma2 bedtime; 20 tablet; Refills: 0, Product Selection Permitted - Meclizine 25 mg Oral Tablet - take 1 tablet by ORAL route every 8 hours As needed; 30 tablet; Refills: 0, ma2 Product Selection Permitted - Potassium Chloride 20 meq Oral Packet - take 1 packet by ORAL route once daily 1 packet in 6 (six) ounces of water or ma2 juice; Take after meal; 30 packet; Refills: 0, Product Selection Permitted Signatures: Dispatcher [employer] Zora Dye RN RN ea Alzahri, Mohammad, MD MD ma2 Mirian Garzon bs2
[2020-11-14 07:30] VITALS: TEMP 97.6
[2020-11-14 07:32] VITALS: BP 130/70; O2SAT 99
--- NOTE | 2020-11-14 12:51 | RAD REPORT ---
EXAM DESCRIPTION: CT - Head Brain Wo Cont - 11/14/2020 6:42 am COMPARISON: None. CLINICAL HISTORY: PAIN TECHNIQUE: Axial images were obtained from skull base to vertex without intravenous contrast. Imag es viewed on bone and brain windows. Multiplanar reformats were performed. Automated exposure contr ol was utilized on this examination as a dose lowering technique. FINDINGS: Brain parenchyma, ventricles, dura, meninges, and extra-axial spaces: Mild generalized cer ebral and cerebellar volume loss is present. Mild hypodensities in the subcortical white matter of melanie th hemispheres are nonspecific but likely relate to chronic small vessel disease. No acute intracrani al hemorrhage or abnormal extra-axial fluid collections. Vascular structures: No hyperdense arteries or veins. Calvarium, mastoid air cells, paranasal sinuses and orbits: The calvarium is normal. The mastoid air cells are clear. Visualized paranasal sinuses are unremarkable. Orbital structures are unremarkable. IMPRESSION: 1. No acute intracranial abnormality. 2. Mild senescent changes. Electronically signed by: Demetrius Whyte MD 11/14/2020 5:03 AM CDT Due to temporary technical issues with the PACS/Fluency reporting system, reports are being signed by the in house radiologists without review as a courtesy to insure prompt reporting. The interpreting radiologist is fully responsible for the content of the report.
== END 2020-11-14 07:12 | disposition home or self-care (01) ==
LOC: ER 03:35
DX: E86.0 Dehydration (principal); E87.6 Hypokalemia; H81.393 Other peripheral vertigo, bilateral; E11.9 Type 2 diabetes mellitus without complications
CPT/HCPCS: 36415; 70450; 80053; 81003; 82947; 85025; 96361; 96372; 96374; 96375; 99284; J2765; J2930; J7030

== ENCOUNTER 2021-05-23 14:54 | Emergency (ER) | payer SELFPAY ==
[2021-05-23] MEDS ORDERED: NA CHLORIDE 0.9% 1,000 ML ONE (15:28)
[2021-05-23 15:34] LABS: Absolute Lymphocytes (CBC) 2.3 K/uL (0.7-4.9); Lymphocytes % 17.2 % (15.3-44.8); MPV 6.9 fL (7.6-11.3); RBC Red Blood Cell Count 4.83 M/uL (3.86-4.86)
[2021-05-23 18:25] LABS: ALT/SGPT 11 U/L (12-78); AST/SGOT 9 U/L (15-37); Albumin 2.5 g/dL (3.4-5.0); Alkaline Phosphatase 160 U/L (45-117); BUN Blood Urea Nitrogen 13 mg/dL (7-18); Bicarbonate 25 mmol/L (21-32); Bilirubin Direct < 0.1 mg/dL (0-0.2); Bilirubin Total 0.3 mg/dL (0.2-1.0); Glucose Level 285 mg/dL (74-106); Lipase 158 U/L (73-393); Potassium 4.1 mmol/L (3.5-5.1); Protein, Total 8.4 g/dL (6.4-8.2); Sodium Level 139 mmol/L (136-145)
--- NOTE | 2021-05-23 18:38 | EDPHYS ---
Physician Documentation [facility] Name: Kirsten Barros Age: 60 yrs Sex: Female : 1960 Arrival Date: 05/23/2021 Time: 15:05 Bed 25 Private MD: ED Physician Dom Wang HPI: 05/23 15:12 This 60 yrs old Female presents to ER via EMS with complaints of n/v. kb 15:12 The patient presents to the emergency department with nausea, vomiting. Onset: The kb symptoms/episode began/occurred 1.5 day(s) ago. Possible causes: unknown. The symptoms are aggravated by nothing. The symptoms are alleviated by nothing. Associated signs and symptoms: Pertinent positives: nausea, vomiting, Pertinent negatives: abdominal pain, anorexia, belching, constipation, diarrhea, dysuria, fever, flatulence, GI bleeding, hematuria, vaginal discharge. Severity of symptoms: At their worst the symptoms were moderate in the emergency department the symptoms are unchanged. The patient has not experienced similar symptoms in the past. The patient has not recently seen a physician. 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 Denies abd pain, fever, chills, diarrhea or any other symptoms. Denies sick contacts. - Immunization history:: Adult Immunizations up to date. - Social history:: Smoking status: Patient/guardian denies using. ROS: 15:17 Constitutional: Negative for fever, chills, and weight loss. kb 15:17 Abdomen/GI: Positive for nausea and vomiting, Negative for abdominal pain, diarrhea. 15:17 All other systems are negative. Exam: 15:17 Constitutional: This is a well developed, well nourished patient who is awake, alert, kb and in no acute distress. Pt appears drowsy upon exam. Was given phenergen in route Head/Face: Normocephalic, atraumatic. ENT: Moist Mucous membranes Cardiovascular: Regular rate and rhythm with a normal S1 and S2. No gallops, murmurs, or rubs. No pulse deficits. Respiratory: Respirations even and unlabored. No increased work of breathing. Talking in full sentences Abdomen/GI: Soft, non-tender. No distention Skin: Warm, dry with normal turgor. Normal color. MS/ Extremity: Pulses equal, no cyanosis. Neurovascular intact. Full, normal range of motion. Neuro: Awake and alert, GCS 15, oriented to person, place, time, and situation. Moves all extremities. Normal gait. Psych: Awake, alert, with orientation to person, place and time. Behavior, mood, and affect are within normal limits. Vital Signs: 15:05 BP 118 / 80; Pulse 120; Resp 18; Temp 98.7(A); Pulse Ox 97% on R/A; ic1 16:21 BP 117 / 75; Pulse 107; Resp 18; Pulse Ox 100% on R/A; ic1 18:23 BP 121 / 73; Pulse 105; Resp 16 S; Pulse Ox 100% on R/A; ic1 MDM: 15:06 Patient medically screened. kb 15:13 Data reviewed: vital signs, nurses notes. Data interpreted: Pulse oximetry: on room air kb is 97 %. Interpretation: normal. 18:37 Counseling: I had a detailed discussion with the patient and/or guardian regarding: the kb historical points, exam findings, and any diagnostic results supporting the discharge/admit diagnosis, lab results, the need for outpatient follow up, a family practitioner, to return to the emergency department if symptoms worsen or persist or if there are any questions or concerns that arise at home. Refusal of service: The patient/guardian displays adequate decision making capability and despite a detailed discussion of alternatives, benefits, risks, and consequences refuses: CT Scan. 19:08 ED course: Pt does not want CT scan. Pt is feeling better after treatment and wants to kb go home. Pt has no abdominal pain at this time, is afebrile and nontoxic in appearance. Pt educated to return immediately for worsening symptoms, abd pain, fever, or any other concerns. . 05/23 15:10 Order name: Basic Metabolic Panel; Complete Time: 18:26 kb 05/23 15:10 Order name: CBC with Diff; Complete Time: 15:47 kb 05/23 15:10 Order name: Hepatic Function; Complete Time: 18:26 kb 05/23 15:10 Order name: Lipase; Complete Time: 18:26 kb 05/23 15:10 Order name: IV Saline Lock; Complete Time: 15:28 kb 05/23 15:10 Order name: Labs collected and sent; Complete Time: 15:28 kb 05/23 15:40 Order name: Labs - recollect needed: recollect light green; Complete Time: 18:10 bd Administered Medications: 15:28 Drug: NS 0.9% 1000 ml Route: IV; Rate: 1000 ml; Site: left antecubital; ic1 Disposition Summary: 05/23/21 18:37 Discharge Ordered Location: Home kb Condition: Stable kb Diagnosis - Nausea with vomiting, unspecified kb Followup: kb - With: Emergency Department - When: As needed - Reason: Worsening of condition Followup: kb - With: Private Physician - When: 2 - 3 days - Reason: Recheck today's complaints, Continuance of care, Re-evaluation by your physician Discharge Instructions: - Discharge Summary Sheet kb - Nausea and Vomiting, Adult, [id number] kb Forms: - Medication Reconciliation Form kb - Thank You Letter kb - Antibiotic Education kb - Prescription Opioid Use kb Prescriptions: - Zofran 4 mg Oral Tablet - take 1 tablet by ORAL route every 6 hours As needed; 20 tablet; Refills: 0, kb Product Selection Permitted Addendum: 05/29/2021 21:09 Co-signature as Attending Physician, Dom Wang MD. r n Signatures: Dispatcher [employer] EDMS Joanne Hunter, FILLING WINDER-C FILLING WINDER-Ckb Zabrina Aelman Roman, MD MD rn Creggett, Iesha, RN RN ic1 Corrections: (The following items were deleted from the chart) 05/23 15:18 15:17 Constitutional: This is a well developed, well nourished patient who is awake, kb alert, and in no acute distress. Head/Face: Normocephalic, atraumatic. ENT: Moist Mucous membranes Cardiovascular: Regular rate and rhythm with a normal S1 and S2. No gallops, murmurs, or rubs. No pulse deficits. Respiratory: Respirations even and unlabored. No increased work of breathing. Talking in full sentences Abdomen/GI: Soft, non-tender. No distention Skin: Warm, dry with normal turgor. Normal color. MS/ Extremity: Pulses equal, no cyanosis. Neurovascular intact. Full, normal range of motion. Neuro: Awake and alert, GCS 15, oriented to person, place, time, and situation. Moves all extremities. Normal gait. Psych: Awake, alert, with orientation to person, place and time. Behavior, mood, and affect are within normal limits. kb 15:18 15:17 Constitutional: This is a well developed, well nourished patient who is awake, kb alert, and in no acute distress. Head/Face: Normocephalic, atraumatic. ENT: Moist Mucous membranes Cardiovascular: Regular rate and rhythm with a normal S1 and S2. No gallops, murmurs, or rubs. No pulse deficits. Respiratory: Respirations even and unlabored. No increased work of breathing. Talking in full sentences Abdomen/GI: Soft, non-tender. No distention Skin: Warm, dry with normal turgor. Normal color. MS/ Extremity: Pulses equal, no cyanosis. Neurovascular intact. Full, normal range of motion. Neuro: Awake and alert, GCS 15, oriented to person, place, time, and situation. Moves all extremities. Normal gait. Psych: Awake, alert, with orientation to person, place and time. Behavior, mood, and affect are within normal limits. kb 18:59 15:49 Abdomen Pelvis W Con+CT.RAD.BRZ ordered. EDMS EDMS 19:11 19:08 ED course: Pt does not want CT scan. Pt is feeling better after treatment and kb wants to go home. kb
--- NOTE | 2021-05-23 18:38 | ER ---
Nurse's Notes [facility] Name: Kirsten Barros Age: 60 yrs Sex: Female : 1960 Arrival Date: 05/23/2021 Time: 15:05 Bed 25 Private MD: Diagnosis: Nausea with vomiting, unspecified Presentation: 05/23 15:05 Chief complaint: EMS states: Pt presents with n/v while eating lunch on today. Was ic1 given 4mg of zofran and 12.5mg of phenergan en route to ED. Pt currently experiencing emesis. Denies cp or sob. Coronavirus screen: Vaccine status: Client denies travel out of the [place] in the last 14 days. Ebola Screen: Patient negative for fever greater than or equal to 101.5 degrees Fahrenheit, and additional compatible Ebola Virus Disease symptoms Patient denies exposure to infectious person. Patient denies travel to an Ebola-affected area in the 21 days before illness onset. No symptoms or risks identified at this time. Initial Sepsis Screen: Does the patient meet any 2 criteria? No. Patient's initial sepsis screen is negative. Does the patient have a suspected source of infection? No. Patient's initial sepsis screen is negative. Risk Assessment: Do you want to hurt yourself or someone else? Patient reports no desire to harm self or others. Onset of symptoms was May 23, 2021. 15:05 Method Of Arrival: EMS ic1 15:05 Acuity: IAN 3 ic1 Triage Assessment: 15:05 General: Appears in no apparent distress. uncomfortable, Behavior is calm, cooperative. ic1 Pain: Denies pain. EENT: No deficits noted. Neuro: No deficits noted. Cardiovascular: Rhythm is sinus tachycardia. Respiratory: No deficits noted. GI: Pt is actively vomiting clear fluid, undigested food. : No deficits noted. Derm: Pt has chronic skin condition shown as extremely dry skin noted grossly on abdomen. Musculoskeletal: No deficits noted. - Immunization history:: Adult Immunizations up to date. - Social history:: Smoking status: Patient/guardian denies using. Screenin:10 Abuse screen: Denies threats or abuse. Denies injuries from another. Nutritional ic1 screening: No deficits noted. Tuberculosis screening: No symptoms or risk factors identified. Fall Risk None identified. Assessment: 15:10 General: Appears in no apparent distress. comfortable, Behavior is calm, cooperative. ic1 Pain: Denies pain. Neuro: No deficits noted. Cardiovascular: Rhythm is sinus tachycardia Chest pain is denied. Respiratory: No deficits noted. GI: Pt is actively vomiting clear fluid, undigested food. : No deficits noted. EENT: No deficits noted. Derm: Chronic skin rash grossly noted to extremities and abdomen. Musculoskeletal: No deficits noted. 16:54 Reassessment: Patient appears in no apparent distress at this time. Amb to bathroom w ic1 steady gait. Patient denies pain at this time. Patient states feeling better. Patient states symptoms have improved. 18:48 Reassessment: Pt refused to wait for CT scan. ED provider notified. Stated she would ic1 discharge patient. Pt symptoms resolved. Pt stated she feels better. Informed on the risks of not receiving CT. Pt acknowledged understanding. Endorses that she would like to leave anyway. Discharge dispo set. Vital Signs: 15:05 BP 118 / 80; Pulse 120; Resp 18; Temp 98.7(A); Pulse Ox 97% on R/A; ic1 16:21 BP 117 / 75; Pulse 107; Resp 18; Pulse Ox 100% on R/A; ic1 18:23 BP 121 / 73; Pulse 105; Resp 16 S; Pulse Ox 100% on R/A; ic1 ED Course: 15:05 Patient arrived in ED. 5 15:05 Valorie Miles RN is Primary Nurse. ic1 15:05 Arm band placed on left wrist. ic1 15:06 Joanne Hunter F[facility]-C [facility]. kb 15:06 Dom Wang MD is Attending Physician. kb 15:08 Triage completed. ic1 15:10 Patient has correct armband on for positive identification. Placed in gown. Bed in low ic1 position. Call light in reach. Side rails up X2. 15:10 Inserted saline lock: 20 gauge in right wrist, using aseptic technique. ic1 15:28 Basic Metabolic Panel Sent. ic1 15:28 CBC with Diff Sent. ic1 15:28 Hepatic Function Sent. ic1 15:28 Lipase Sent. ic1 18:50 IV discontinued, intact, bleeding controlled, No redness/swelling at site. Pressure ic1 dressing applied. Administered Medications: 15:28 Drug: NS 0.9% 1000 ml Route: IV; Rate: 1000 ml; Site: left antecubital; ic1 Outcome: 18:37 Discharge ordered by . francisco 18:48 Discharged to home with friend. ic1 18:48 Condition: stable 18:48 Discharge instructions given to patient, Instructed on discharge instructions, follow up and referral plans. Demonstrated understanding of instructions, follow-up care, medications, Prescriptions given X 1. 19:08 Patient left the ED. ic1 Signatures: Joanne Hunter, OIL PROSPECTING OBSERVER-C Jaja Grant [facility] Valorie Miles, RN RN ic1
[2021-05-23 19:49] VITALS: TEMP 98.7
[2021-05-23 19:50] VITALS: O2SAT 100
[2021-05-23 19:51] VITALS: BP 121/73
== END 2021-05-23 19:08 | disposition home or self-care (01) ==
LOC: ER 14:54
DX: R11.2 Nausea with vomiting, unspecified (principal)
CPT/HCPCS: 36415; 80048; 80076; 83690; 85025; 99284; J7030

== ENCOUNTER 2023-08-11 04:57 | Inpatient (IN) | payer SELFPAY ==
[2023-08-11 06:50] LABS: Absolute Basophils 0.1 K/uL (0-0.5); Absolute Eosinophils 0.4 K/uL (0-0.5); Absolute Lymphocytes (CBC) 3.2 K/uL (0.7-4.9); Absolute Monocytes 0.7 K/uL (0.1-1.3); Absolute Neutrophil 12.3 K/uL (1.8-8.0); Basophils % 0.8 % (0-1.3); Eosinophils % 2.6 % (0-4.4); Hematocrit 34.6 % (36.0-45.0); Hemoglobin 10.7 g/dL (12.0-15.0); MCH 22.5 pg (27.0-35.0); MCV 72.5 fL (80-100); MPV 7.6 fL (7.6-11.3); Monocytes % 4.1 % (3.3-12.3); Neutrophils % 73.5 % (41.7-73.7); Platelets 557 thou/uL (152-406); RBC Red Blood Cell Count 4.77 M/uL (3.86-4.86); Red Cell Distribution Width 16.6 % (12.1-15.2)
[2023-08-11 07:05] LABS: PT Prothrombin Time 12.3 SECONDS (9.5-12.5); Protime INR 1.12
[2023-08-11 07:07] LABS: Albumin 2.9 g/dL (3.4-5.0); Albumin/Globulin Ratio 0.5 (1.1-1.8); Anion Gap 11.6 mEq/L (5.0-15.0); Bilirubin Total 0.6 mg/dL (0.2-1.0); Globulin 5.6 g/dL (2.3-3.5); Potassium 3.6 mEq/L (3.5-5.1); Protein, Total 8.5 g/dL (6.4-8.2)
[2023-08-11] MEDS ORDERED: NA CHLORIDE 0.9% 500 ML ONE (07:29)
[2023-08-11] MEDS ORDERED: CEFTRIAXONE 1000 MG/VIAL ONE (07:29)
[2023-08-11] MEDS ORDERED: ONDANSETRON 4 MG/2 ML VIAL ONE (07:47)
--- NOTE | 2023-08-11 08:18 | RAD REPORT ---
EXAM DESCRIPTION: CTAbdomen Pelvis W Contrast - 08/11/2023 7:56 am CLINICAL HISTORY: rule out pyelonephritis COMPARISON: Chest Abdomen Pelvis W Cont dated 02/08/2018 TECHNIQUE: CT of the abdomen and pelvis was performed. All CT scans are performed using dose optimization technique as appropriate and may include automated exposure control or mA/KV adjustment according to patient size. FINDINGS: Lower chest: Small hiatal hernia. Moderately thickened distal esophagus likely reflecting esophagitis. Liver: No acute abnormality or suspicious lesions. Biliary: Cholelithiasis without CT is acute cholecystitis. Stomach: No significant focal abnormality. Duodenum: No significant focal abnormality. Pancreas: No significant abnormality. Spleen: Mild splenomegaly. Adrenal: No suspicious lesions. Kidney/ureter: No hydronephrosis. No renal calculi. Mild right renal scarring. The right ureter is mi ldly enhancing. Retroperitoneum: No retroperitoneal adenopathy. Vascular: No aneurysm. Bowel: Normal appendix.. No bowel obstruction. Moderate stool. Peritoneum: Small fat containing umbilical hernia. Bladder: Bladder wall thickening enhancement concerning for cystitis. Reproductive: No adnexal masses. Bones: No acute fracture. Multilevel degenerative changes are present in the spine. Other: Enlarged inguinal lymph nodes as well as chest wall lymph nodes versus nodules. For example, a possible lymph node in the left chest wall measures 7 millimeters in short axis, previously 3 millim eters. A left inguinal lymph node measures 11 millimeters and is unchanged. IMPRESSION: Significant bladder wall thickening and enhancement concerning for cystitis. Mild right ureteral enhancement could reflect an ascending component of the infection. No CT evidence of pyelone phritis or hydronephrosis. Moderately thickened distal esophagus with small hiatal hernia suggesting esophagitis. Endoscopy coul d better evaluate. Cholelithiasis without CT is acute cholecystitis. Mild adenopathy in the inguinal region and chest wall could reflect a generalized chronic inflammator y process. The patient had similar findings compared with 02/08/2018 though there has been some enlar gement of the chest wall lymph nodes. Suggest ensuring at the patient is up-to-date with mammography.
[2023-08-11 08:19] LABS: Specific Gravity < 1.005 (1.005-1.030); Sqamous Epithelial <5 /HPF (None Seen); Urine Bacteria <20 /HPF (<20); Urine Bilirubin NEGATIVE (Negative); Urine Blood Negative (Negative); Urine Clarity Extremely Turbid (Clear); Urine Color Light-Yellow (Yellow); Urine Culture Reflex Order REFLEXED; Urine Glucose 4+ (Over) (Negative); Urine Ketones TRACE (Negative); Urine Microscopic Reflex YN ORDER UMIC; Urine Mucus Slight /HPF (None Seen); Urine Nitrite NEGATIVE (Negative); Urine Protein NEGATIVE (Negative); Urine RBC <5 /HPF (None Seen); Urine Urobilinogen Normal (Normal); Urine WBC >50 /HPF (<5)
[2023-08-11] MEDS ORDERED: NA CHLORIDE 0.9% 1,000 ML ONE (08:38)
--- NOTE | 2023-08-11 08:39 | ER ---
Nurse's Notes [facility] Name: Kirsten Barros Age: 62 yrs Sex: Female : 1960 Arrival Date: 08/11/2023 Time: 04:57 Bed 15 Private MD: Diagnosis: UTI/ Urinary tract infection, site not specified;Sepsis, unspecified organism Presentation: 08/10 05:13 Chief complaint: Patient states: UTI symptoms of burning with urination pain of 8, pf1 urgency and frequency,onset 1 week. 05:13 Coronavirus screen: Vaccine status: Patient reports being unvaccinated. Client denies pf1 travel out of the [place] in the last 14 days. At this time, the client does not indicate any symptoms associated with coronavirus-19. Ebola Screen: Patient negative for fever greater than or equal to 101.5 degrees Fahrenheit, and additional compatible Ebola Virus Disease symptoms. Initial Sepsis Screen: Does the patient meet any 2 criteria? HR > 90 bpm. No. Patient's initial sepsis screen is negative. Does the patient have a suspected source of infection? No. Patient's initial sepsis screen is negative. Risk Assessment: Do you want to hurt yourself or someone else? Patient reports no desire to harm self or others. 05:13 Method Of Arrival: Ambulatory pf1 05:13 Acuity: IAN 4 pf1 05:37 Onset of symptoms was August 04, 2023. pf1 Triage Assessment: 05:13 General: Appears in no apparent distress. uncomfortable, well groomed, well developed, pf1 Behavior is calm, cooperative, appropriate for age, quiet. 05:13 Pain: Complains of pain in pain with urination Pain. : Reports burning with pf1 urination, since 1 week urgency, urinary frequency. Historical: - Allergies: 05:38 No Known Allergies; pf1 - PMHx: 05:38 Anemia; Diabetes - NIDDM; Psoriatic Arthritis; pf1 05:38 Autoimmune disease; pf1 05:15 Anemia; Diabetes - NIDDM; Psoriatic Arthritis; pf1 - PSHx: 05:38 None; pf1 - Immunization history:: Adult Immunizations not up to date, Client reports having NOT received the Covid vaccine. Last tetanus immunization: > 10 years ago Flu vaccine is not up to date. - Social history:: Smoking status: Patient denies any tobacco usage or history of. Patient/guardian denies using alcohol, street drugs. - Family history:: not pertinent. - Hospitalizations: : No recent hospitalization is reported. Screenin:13 [facility] ED Fall Risk Assessment (Adult) History of falling in the last 3 months, pf1 including since admission No falls in past 3 months (0 pts) Confusion or Disorientation No (0 pts) Intoxicated or Sedated No (0 pts) Impaired Gait No (0 pts) Mobility Assist Device Used No (0 pt) Altered Elimination No (0 pt) Score/Fall Risk Level 0 - 2 = Low Risk Oriented to surroundings, Maintained a safe environment, Educated pt \T\ family on fall prevention, incl call for assistance when getting out of bed, Assessed \T\ reinforced patient's understanding of fall precautions, Provided non-skid footwear, Hourly rounding (assess needs \T\ fall precautionary measures) done, Used ambulatory aids as needed (educated on \T\ assisted with), Used gait belt as appropriate. Abuse screen: Denies threats or abuse. Nutritional screening: No deficits noted. Tuberculosis screening: No symptoms or risk factors identified. Assessment: 05:15 Reassessment: Patient appears in no apparent distress at this time. Patient and/or pf1 family updated on plan of care and expected duration. Pain level reassessed. Patient is alert, oriented x 3, equal unlabored respirations, skin warm/dry/pink. 05:25 Reassessment: not enough urine in tubes, Hodan with lab stated need to recollect urine. pf1 06:14 General: Appears in no apparent distress. uncomfortable, well groomed, well developed, pf1 Behavior is calm, cooperative, appropriate for age, quiet. Pain: Complains of pain in burning pain with urination. Neuro: No deficits noted. Level of Consciousness is awake, alert, obeys commands, Oriented to person, place, time, situation. Cardiovascular: No deficits noted. Capillary refill < 3 seconds Patient's skin is warm and dry. Respiratory: No deficits noted. Airway is patent Respiratory effort is even, unlabored, Respiratory pattern is regular, symmetrical, Breath sounds are clear bilaterally. GI: No deficits noted. Abdomen is round non-distended. : Reports burning with urination, since 1 week urgency, urinary frequency. EENT: No deficits noted. No signs and/or symptoms were reported regarding the EENT system. Derm: No deficits noted. No signs and/or symptoms reported regarding the dermatologic system. 07:30 Reassessment:. General: Appears in no apparent distress. comfortable, Behavior is calm, rs5 cooperative. Pain: Denies pain. Cardiovascular: Rhythm is regular. Respiratory: Respiratory effort is even, unlabored. GI: Abdomen is round non-distended. : Denies burning with urination, incontinence, pain. Musculoskeletal: Range of motion: intact in all extremities. 08:27 Reassessment: No changes from previously documented assessment. rs5 09:40 Reassessment: Patient and/or family updated on plan of care and expected duration. Pain rs5 level reassessed. Patient is alert, oriented x 3, equal unlabored respirations, skin warm/dry/pink. 11:02 Reassessment: Patient appears in no apparent distress at this time. rs5 Vital Signs: 05:13 BP 130 / 74; Pulse 95; Resp 16; Temp 97; Pulse Ox 99% on R/A; Weight 54.43 kg; Height 5 pf1 ft. 2 in. ; Pain 8/10; 07:30 BP 126 / 99; Pulse 90; Resp 18; Pulse Ox 99% on R/A; rs5 10:05 BP 137 / 76; Pulse 89; Resp 18; Pulse Ox 99% on R/A; rs5 11:01 BP 133 / 80; Pulse 91; Resp 18; Pulse Ox 98% on R/A; rs5 05:13 Body Mass Index 21.95 (54.43 kg, 157.48 cm) pf1 05:13 Pain Scale: Adult pf1 ED Course: 05:02 Patient arrived in ED. gm2 05:04 Dom Wang MD is Attending Physician. rn 05:13 Patient has correct armband on for positive identification. Placed in gown. Bed in low pf1 position. Call light in reach. 05:23 Urinalysis w/ reflexes Sent. pf1 05:23 Urine collected: clean catch specimen, cloudy. pf1 05:37 Triage completed. pf1 06:17 Missed attempt(s): 22 gauge Bleeding controlled, band aid applied, catheter tip intact. kmf 06:35 Inserted saline lock: 20 gauge in right antecubital area, using aseptic technique. rv Blood collected. 06:35 Initial lab(s) drawn, by me, sent to lab. First set of blood cultures drawn by me, EKG rv done, by ED staff, reviewed by Dom Wang MD. 06:43 Ptt, Activated Sent. pf1 06:43 Protime (+inr) Sent. pf1 06:43 Lactate w/ 2H reflex if indic. Sent. pf1 06:43 CMP Sent. pf1 06:43 CBC with Diff Sent. pf1 06:43 No provider procedures requiring assistance completed. rv 07:02 Alexandro Renner, RN is Primary Nurse. rs5 07:07 Attending Physician role handed off by Dom Wang MD ec2 07:07 Zach Valentin MD is Attending Physician. ec2 07:58 CT Abd/Pelvis - IV Contrast Only In Process Unspecified. EDMS 08:38 Alex Wang MD is Hospitalizing Provider. ec2 11:02 Patient admitted, IV remains in place. rs5 Administered Medications: 07:35 Drug: Rocephin IV 1 grams IV at calculated rate once; Given slow IV push per pharmacy rs5 instructions Route: IV; Rate: calculated rate; Site: right antecubital; 08:00 Follow up: Response: No adverse reaction rs5 13:26 Follow up: Response: No adverse reaction; IV Status: Completed infusion tl4 07:35 Drug: NS 0.9% IV 500 ml IV at calculated rate once Route: IV; Rate: calculated rate; rs5 Site: right antecubital; 07:50 Follow up: Response: No adverse reaction rs5 08:05 Follow up: IV Status: Completed infusion rs5 08:13 Drug: Ondansetron IVP 4 mg IVP once; over 2 minutes Route: IVP; Site: right antecubital;rs5 08:30 Follow up: Response: No adverse reaction rs5 08:41 Drug: NS 0.9% IV 1000 ml IV at 1 bolus Per protocol; 1000 mL bolus Route: IV; Rate: 1 rs5 bolus; Site: right antecubital; 08:42 Follow up: Response: No adverse reaction rs5 13:26 Follow up: IV Status: Completed infusion; IV Intake: 1000ml tl4 09:05 Drug: Insulin Regular Human Sub-Q 10 units Sub-Q once {Co-Signature: cp4 (francesco Isabel).} Route: Sub-Q; Site: left upper arm; 09:20 Follow up: Response: No adverse reaction rs5 Medication: 06:43 VIS not applicable for this client. rv Intake: 13:26 IV: 1000ml; Total: 1000ml. tl4 Outcome: 08:38 Decision to Hospitalize by Provider. ec2 11:02 Admitted to ER Hold. Please see [facility] for further documentation. rs5 11:02 Condition: stable rs5 11:02 Instructed on the need for admit, Demonstrated understanding of instructions, 14:10 Patient left the ED. tl4 Signatures: Dispatcher [employer] EDDom Campuzano MD MD rn Vicente, Ronaldo RN RN Darcie Kelly RN RN pf1 Alexandro Renner RN RN rs5 Zach Valentin MD MD 2 Brittney Deleon [facility] Renu Montesinos [facility] Lyle Cr RN RN tl4 Kristen Isabel 4
--- NOTE | 2023-08-11 08:39 | EDPHYS ---
Physician Documentation [facility] Name: Kirsten Barros Age: 62 yrs Sex: Female : 1960 Arrival Date: 08/11/2023 Time: 04:57 Bed 15 Private MD: ED Physician Zach Valentin HPI: 08/10 05:34 This 62 yrs old Female presents to ER via Unassigned with complaints of Pain With rn Urination. 05:34 The patient presents with urinary symptoms, dysuria, frequency. Onset: The rn symptoms/episode began/occurred 1 week(s) ago. Modifying factors: The symptoms are alleviated by nothing, the symptoms are aggravated by nothing. Severity of symptoms: At their worst the symptoms were moderate, in the emergency department the symptoms are unchanged. The patient has not experienced similar symptoms in the past. The patient has not recently seen a physician. Patient reports 1 week of dysuria and increased urinary frequency. Patient reports she has a UTI. No recent testing or antibiotic usage. Patient reports it has been a long time since she had a UTI. No fever or chills. No vomiting. No medication changes. No urinary incontinence.. Historical: - Allergies: 05:38 No Known Allergies; pf1 - PMHx: 05:38 Anemia; Diabetes - NIDDM; Psoriatic Arthritis; pf1 05:38 Autoimmune disease; pf1 05:15 Anemia; Diabetes - NIDDM; Psoriatic Arthritis; pf1 - PSHx: 05:38 None; pf1 - Immunization history:: Adult Immunizations not up to date, Client reports having NOT received the Covid vaccine. Last tetanus immunization: > 10 years ago Flu vaccine is not up to date. - Social history:: Smoking status: Patient denies any tobacco usage or history of. Patient/guardian denies using alcohol, street drugs. - Family history:: not pertinent. - Hospitalizations: : No recent hospitalization is reported. ROS: 05:34 Constitutional: Negative for fever, chills, and weight loss, Cardiovascular: Negative rn for chest pain, palpitations, and edema, Respiratory: Negative for shortness of breath, cough, wheezing, and pleuritic chest pain, Abdomen/GI: Negative for abdominal pain, nausea, vomiting, diarrhea, and constipation, Back: Negative for injury and pain, : Positive for dysuria MS/Extremity: Negative for injury and deformity, Skin: Negative for injury, rash, and discoloration, Neuro: Negative for headache, weakness, numbness, tingling, and seizure, Exam: 05:34 Constitutional: This is a well developed, well nourished patient who is awake, alert, rn and in no acute distress. Ambulatory to room without difficulty or assistance Cardiovascular: Tachycardic, regular. Respiratory: No increased work of breathing, no retractions or nasal flaring. Abdomen/GI: Soft, non-tender MS/ Extremity: Pulses equal, no cyanosis. Neuro: Awake and alert, GCS 15 Vital Signs: 05:13 BP 130 / 74; Pulse 95; Resp 16; Temp 97; Pulse Ox 99% on R/A; Weight 54.43 kg; Height 5 pf1 ft. 2 in. ; Pain 8/10; 07:30 BP 126 / 99; Pulse 90; Resp 18; Pulse Ox 99% on R/A; rs5 10:05 BP 137 / 76; Pulse 89; Resp 18; Pulse Ox 99% on R/A; rs5 11:01 BP 133 / 80; Pulse 91; Resp 18; Pulse Ox 98% on R/A; rs5 05:13 Body Mass Index 21.95 (54.43 kg, 157.48 cm) pf1 05:13 Pain Scale: Adult pf1 MDM: 05:04 Patient medically screened. rn 07:25 Data reviewed: vital signs. ED course: Patient signed out to me at previous physician, ec2 in brief patient arrives today due to concern for dysuria. Plan is to follow-up lab work, CT imaging and reassess. Labs show CBC with a leukocytosis of 16.8. Metabolic profile is overall reassuring. Coagulation profile unremarkable. . 08:33 ED course: Urine with leuk esterase and WBCs noted. CT imaging shows similar ec2 pathology as well. Will admit for sepsis secondary to urinary tract infection. . 08:38 ED course: On my sepsis reassessment patient with improving tachycardia indicating ec2 improved endorgan function. 08/10 05:05 Order name: Urinalysis w/ reflexes; Complete Time: 08:33 rn 08/10 05:36 Order name: Blood Culture Adult (2) rn 08/10 05:36 Order name: CBC with Diff; Complete Time: 06:57 rn 08/10 05:36 Order name: CMP; Complete Time: 07:08 rn 08/10 05:36 Order name: Lactate w/ 2H reflex if indic. rn 08/10 05:36 Order name: Protime (+inr); Complete Time: 07:07 rn 08/10 05:36 Order name: Ptt, Activated; Complete Time: 07:07 rn 08/10 06:48 Order name: Glucose, Ancillary Testing; Complete Time: 06:57 EDMS 08/10 08:22 Order name: Urine Culture EDMS 08/10 09:20 Order name: Glucose, Ancillary Testing EDMS 08/10 09:20 Order name: Glucose, Ancillary Testing EDMS 08/10 11:59 Order name: Glucose, Ancillary Testing EDMS 08/10 05:36 Order name: CT Abd/Pelvis - IV Contrast Only; Complete Time: 08:33 rn 08/10 05:36 Order name: Accucheck; Complete Time: 06:40 rn 08/10 05:36 Order name: Cardiac monitoring; Complete Time: 06:43 rn 08/10 05:36 Order name: EKG - Nurse/Tech; Complete Time: 06:40 rn 08/10 05:36 Order name: IV Saline Lock - Large Bore; Complete Time: 06:40 rn 08/10 05:36 Order name: Labs collected and sent; Complete Time: 06:43 rn 08/10 05:36 Order name: O2 Per Protocol; Complete Time: 06:40 rn 08/10 05:36 Order name: O2 Sat Monitoring; Complete Time: 06:40 rn 08/10 05:36 Order name: Vital Signs; Complete Time: 06:40 rn 08/10 07:52 Order name: Straight Cath; Complete Time: 08:13 ec2 08/10 08:26 Order name: Labs - recollect needed: VALENZUELA TOP; Complete Time: 08:34 bc6 Administered Medications: 07:35 Drug: Rocephin IV 1 grams IV at calculated rate once; Given slow IV push per pharmacy rs5 instructions Route: IV; Rate: calculated rate; Site: right antecubital; 08:00 Follow up: Response: No adverse reaction rs5 13:26 Follow up: Response: No adverse reaction; IV Status: Completed infusion tl4 07:35 Drug: NS 0.9% IV 500 ml IV at calculated rate once Route: IV; Rate: calculated rate; rs5 Site: right antecubital; 07:50 Follow up: Response: No adverse reaction rs5 08:05 Follow up: IV Status: Completed infusion rs5 08:13 Drug: Ondansetron IVP 4 mg IVP once; over 2 minutes Route: IVP; Site: right antecubital;rs5 08:30 Follow up: Response: No adverse reaction rs5 08:41 Drug: NS 0.9% IV 1000 ml IV at 1 bolus Per protocol; 1000 mL bolus Route: IV; Rate: 1 rs5 bolus; Site: right antecubital; 08:42 Follow up: Response: No adverse reaction rs5 13:26 Follow up: IV Status: Completed infusion; IV Intake: 1000ml tl4 09:05 Drug: Insulin Regular Human Sub-Q 10 units Sub-Q once {Co-Signature: siomara (francesco Isabel).} Route: Sub-Q; Site: left upper arm; 09:20 Follow up: Response: No adverse reaction rs5 Disposition Summary: 08/11/23 08:38 Hospitalization Ordered Notes: Hospitalization Status: Inpatient Admission ec2 Provider: Alex Wang ecVaishnavi Condition: Stable ec2 Problem: new ec2 Symptoms: have improved ec2 Bed/Room Type: Standard ec2 Location: Telemetry/MedSurg (Inpatient)(08/11/23 12:52) [facility] Room Assignment: [facility](08/11/23 12:52) [facility] Diagnosis - UTI/ Urinary tract infection, site not specified ec2 - Sepsis, unspecified organism ec2 Forms: - Medication Reconciliation Form ec2 - SBAR form ec2 - Leadership Thank You Letter ec2 Critical care time excluding procedures: 08:34 Critical care time: Bedside Care: 30 minutes. Total time: 30 minutes ec2 08:34 Critical care time: Consultation: 5 minutes. Total time: 5 minutes ec2 Signatures: Dispatcher [employer] Dom Castro MD MD rn Pedro Dennis, [facility] RN-Cla1 Darcie Davison RN RN pf1 Alexandro Renner RN RN rs5 [facility] 6 Zach Valentin MD MD ec2 Lyle Cr RN tl4 Kristen Isabel cp4 Corrections: (The following items were deleted from the chart) 05:37 05:37 BLOOD CULTURE*+BA.LAB.BRZ ordered. EDMS EDMS 05:37 05:37 CBC+H.LAB.BRZ ordered. EDMS EDMS 05:37 05:37 COMPREHENSIVE METABOLIC PANEL+C.LAB.BRZ ordered. EDMS EDMS 05:37 05:37 LACTATE+C.LAB.BRZ ordered. EDMS EDMS 05:37 05:37 PROTIME (+INR)+COAG.LAB.BRZ ordered. EDMS EDMS 05:37 05:37 PTT, ACTIVATED+COAG.LAB.BRZ ordered. EDMS EDMS 05:37 05:37 Abdomen Pelvis W Con+CT.RAD.BRZ ordered. EDMS EDMS 10:48 08:38 Telemetry/MedSurg (Inpatient) 2 bc6 10:48 08:38 2 6 12:52 10:48 [facility] ER HOLD 6 6 12:52 10:48 [place] [id number]
[2023-08-11] MEDS ORDERED: INSULIN REGULAR (HUMAN) 100 UNIT/ML ONE (09:14)
--- NOTE | 2023-08-11 13:37 | EKG ---
Test Date: 2023-08-11 Test Time: 05:31:54 Steam Meter Reader: DANI MEASUREMENT RESULTS: Intervals: Rate: 98 MO: 152 QRSD: 70 QT: 358 QTc: 457 [place]: P: 70 MO: 152 QRS: 60 T: 49 INTERPRETIVE STATEMENTS: Normal sinus rhythm Normal ECG Compared to ECG 02/29/2020 18:13:33 No significant changes Electronically Signed On 08-11-23 13:36:04 CDT by Alek Hernandez
[2023-08-11] MEDS ORDERED: ACETAMINOPHEN 500 MG TAB PO PRN (15:15)
[2023-08-11] MEDS: INSULIN REGULAR (HUMAN) 100 UNIT/ML SQ SCH (15:15)
--- NOTE | 2023-08-11 15:22 | P.HP ---
Certification for Inpatient Patient admitted to: Inpatient With expected LOS: >2 Midnights Patient will require the following post-hospital care: None Practitioner: I am a practitioner with admitting privileges, knowledge of patient current condition, hospital course, and medical plan of care. Services: Services provided to patient in accordance with Admission requirements found in Title 42 Section 412.3 of the Code of Federal Regulations Patient History Date of Service: 08/11/23 Reason for admission: UTI, sepsis History of Present Illness: 62-year-old female with history of diabetes mellitus type 2, anemia, psoriatic arthritis/psoriasis presents emergency department with chief complaint of urinary symptoms, weakness. She reports has been having urinary symptoms for the past 10 days or so and has been trying to increase her cranberry juice intake but has not been on any antibiotics. She was evaluated in the emergency department her labs are significant for white blood cell count 16.8 glucose 390 UA suggestive of urinary tract infection. She was started on Rocephin in the ED, she reports has been noncompliant with her diabetes medications for a while now. Patient did have SIRS criteria present, no severe sepsis or septic shock. Allergies No Known Allergies Allergy (Unverified 03/01/20 12:07) Home Medications: Metformin ER [Glucophage ER*] 1,000 mg PO BID 12/19/17 glipiZIDE [Glipizide] 10 mg PO BID 12/19/17 Pantoprazole [Protonix Tab*] 40 mg PO DAILY #30 tab 02/09/18 Ferrous Sulfate [Iron] 65 mg PO BID 02/29/20 Gabapentin [Neurontin*] 100 mg PO TID 02/29/20 Lisinopril [Zestril] 2.5 mg PO DAILY 02/29/20 Lovastatin 10 mg PO DAILY 02/29/20 Cyanocobalamin (Vitamin B-12) [Vitamin B12] 5,000 mcg PO DAILY #30 tab.rapdis 03/03/20 Escitalopram Oxalate [Lexapro] 20 mg PO DAILY #30 tablet 03/03/20 Ferrous Sulfate [Ferrous Sulfate*] 325 mg PO BID #60 tab 03/03/20 Folic Acid 1 mg PO DAILY #30 tablet 03/03/20 Hydrocortisone Butyrate/Emoll [Locoid 0.1% Lipocream] 60 gm TP DAILY #1 cream..g. 03/03/20 Methylprednisolone [Medrol dosepack] 4 mg PO DIRECTED #1 francisco 03/03/20 Minocycline HCl 100 mg PO BID #14 03/03/20 clonazePAM [Klonopin*] 0.5 mg PO TID #60 tab 03/03/20 - Past Medical/Surgical History Diabetic: Yes -: Diabetes mellitus type 2 -: anemia -: psoriatic arthitis -: Psoriasis -: I & D for spider bite Psychosocial/ Personal History: Lives at home alone - Family History Sister -: Heart disease Notes: had open heart surgery - Social History Smoking Status: Never smoker Alcohol use: Yes CD- Drugs: No Caffeine use: No Place of Residence: Home Review of Systems 10-point ROS is otherwise unremarkable General: Weakness, Malaise Genitourinary: Dysuria, Frequency Musculoskeletal: Back Pain Physical Examination - Vital Signs Temperature: 98 F Blood Pressure: 106/54 Pulse: 89 Respirations: 16 Pulse Ox (%): 97 - Physical Exam General: Alert, In no apparent distress, Oriented x3 HEENT: Atraumatic, PERRLA, Mucous membr. moist/pink Neck: Supple, 2+ carotid pulse no bruit, No LAD Respiratory: Clear to auscultation bilaterally, Normal air movement Cardiovascular: Regular rate/rhythm, Normal S1 S2 Gastrointestinal: Normal bowel sounds, No tenderness Musculoskeletal: No tenderness, Other (Erythematous scaly rash to scalp, bilateral third digits fingers) Integumentary: No rashes Neurological: Normal speech, Normal strength at 5/5 x4 extr, Normal tone, Normal affect - Studies Laboratory Data (last 24 hrs) 08/11/23 08/11/23 08/11/23 06:35 06:35 06:35 WBC 16.80 H Hgb 10.7 L Hct 34.6 L Plt Count 557 H PT 12.3 INR 1.12 APTT 28.0 Sodium 133 L Potassium 3.6 BUN 12 Creatinine 0.97 Glucose 387 H Total Bilirubin 0.6 AST 11 L ALT 11 L Alkaline Phosphatase 142 H Assessment and Plan - Plan Assessment: Sepsis secondary to UTI Diabetes mellitus type [id number] with noncompliance/hyperglycemia Psoriatic arthritis/psoriasis Plan: Sepsis secondary to UTI Lactate less than 2, no hypotension Continue antibioticsRocephin Blood and urine culture obtained/pending Diabetes mellitus type [id number] with noncompliance/hyperglycemia Used to be on metformin, has been noncompliant after reading the metformin can cause cancer Poorly controlled ACHS Accu-Chek, sliding scale insulin, A1c in the morning Will need meds at discharge Psoriatic arthritis/psoriasis Outpatient management DVT PPX: Lovenox Code status: Full Discharge Plan: Home Plan to discharge in: Greater than 2 days - Advance Directives Does patient have a Living Will: No Does patient have a Durable POA for Healthcare: No - Code Status/Comfort Care Code Status Assessed: Yes (Full code) Critical Care: No Time Spent Managing Pts Care (In Minutes): 70
[2023-08-11] MEDS: NA CHLORIDE 0.9% 1,000 ML IV SCH (16:53)
[2023-08-11] MEDS: ENOXAPARIN 40 MG/0.4 ML SQ SCH (16:57)
[2023-08-11 19:41] VITALS: O2SAT 100
[2023-08-11 20:53] VITALS: BMI 25.0
[2023-08-11] MEDS: TRAMADOL HCL 50 MG TAB PO PRN (22:05)
[2023-08-12 07:36] LABS: Anion Gap 6.2 mEq/L (5.0-15.0); Magnesium 1.9 mg/dL (1.6-2.4); Potassium 3.2 mEq/L (3.5-5.1); Thyroid Stimulating Hormone 3.37 uIU/mL (0.358-3.740)
[2023-08-12 07:55] LABS: Absolute Basophils 0.1 K/uL (0-0.5); Absolute Eosinophils 0.5 K/uL (0-0.5); Absolute Lymphocytes (CBC) 5.1 K/uL (0.7-4.9); Absolute Monocytes 0.5 K/uL (0.1-1.3); Absolute Neutrophil 3.4 K/uL (1.8-8.0); Basophils % 1.3 % (0-1.3); Eosinophils % 4.9 % (0-4.4); Hematocrit 28.8 % (36.0-45.0); Hemoglobin 9.3 g/dL (12.0-15.0); Lymphocytes % 52.9 % (15.3-44.8); MCH 23.2 pg (27.0-35.0); MCHC 32.1 g/dL (32.0-36.0); MCV 72.1 fL (80-100); MPV 7.6 fL (7.6-11.3); Monocytes % 5.2 % (3.3-12.3); Neutrophils % 35.7 % (41.7-73.7); Platelets 496 thou/uL (152-406); RBC Red Blood Cell Count 3.99 M/uL (3.86-4.86); Red Cell Distribution Width 16.3 % (12.1-15.2)
[2023-08-12] MEDS: CEFTRIAXONE 1,000 MG in NA CHLORIDE 0.9% 50 ML IVPB SCH (08:41)
[2023-08-12] MEDS: ONDANSETRON 4 MG/2 ML VIAL IV PRN (16:15)
--- NOTE | 2023-08-12 19:29 | P.PN ---
Date of Service: 08/12/23 Subjective Awake but feeling nauseous this morning No appetite this morning ROS 10 point ROS as noted above, otherwise negative Physical Exam General: AAOx3, NAD HEENT: Atraumatic, PERRLA, Mucous membr. moist/pink Neck: Supple, 2+ carotid pulse no bruit, No LAD Respiratory: Clear to auscultation bilaterally, symmetrical chest wall movement Cardiovascular: RRR, Normal S1 S2 Gastrointestinal: Normal bowel sounds, No tenderness Musculoskeletal: No tenderness, Other (Erythematous scaly rash to scalp, bilateral third digits fingers) Integumentary: No rashes Neurological: Normal speech, Normal strength at 5/5 x4 extr, Normal tone, Normal affect Vitals Reviewed Problem list Sepsis secondary to UTI Diabetes mellitus type [id number] with noncompliance/hyperglycemia Psoriatic arthritis/psoriasis Plan: Sepsis secondary to UTI Lactate less than 2, no hypotension Continue antibioticsRocephin Blood culture- NGTD urine culture mixed sonia Diabetes mellitus type [id number] with noncompliance/hyperglycemia Used to be on metformin, has been noncompliant after reading the metformin can cause cancer Poorly controlled ACHS Accu-Chek, sliding scale insulin, A1c 10.9 Will need meds at discharge Psoriatic arthritis/psoriasis Outpatient management DVT PPX: Lovenox Code status: Full Discharge Plan: Home
[2023-08-13 07:44] LABS: Absolute Basophils 0.1 K/uL (0-0.5); Absolute Eosinophils 0.4 K/uL (0-0.5); Absolute Lymphocytes (CBC) 4.2 K/uL (0.7-4.9); Absolute Monocytes 0.4 K/uL (0.1-1.3); Absolute Neutrophil 3.8 K/uL (1.8-8.0); Basophils % 0.9 % (0-1.3); Eosinophils % 4.5 % (0-4.4); Hematocrit 30.4 % (36.0-45.0); Hemoglobin 9.8 g/dL (12.0-15.0); Lymphocytes % 46.5 % (15.3-44.8); MCH 23.1 pg (27.0-35.0); MCHC 32.1 g/dL (32.0-36.0); MCV 71.9 fL (80-100); MPV 7.4 fL (7.6-11.3); Neutrophils % 43.1 % (41.7-73.7); Platelets 507 thou/uL (152-406); RBC Red Blood Cell Count 4.23 M/uL (3.86-4.86); Red Cell Distribution Width 16.6 % (12.1-15.2)
[2023-08-13 08:09] LABS: Anion Gap 8.1 mEq/L (5.0-15.0); Magnesium 1.9 mg/dL (1.6-2.4); Potassium 3.1 mEq/L (3.5-5.1)
--- NOTE | 2023-08-13 10:17 | P.PN ---
Date of Service: 08/13/23 Subjective Awake, feeling better, now without nausea, able to eat this morning c/o urinary symptoms ROS 10 point ROS as noted above, otherwise negative Physical Exam General: No acute distress, alert and oriented x 3, calm HEENT: Atraumatic, PERRLA, Mucous membr. moist/pink Neck: Supple, 2+ carotid pulse no bruit, No LAD Respiratory: Clear to auscultation bilaterally, symmetrical chest wall movement Cardiovascular: Regular rate and rhythm, S1-S2 present, no murmur noted Gastrointestinal: Normal bowel sounds, No tenderness Musculoskeletal: No tenderness, 2+ peripheral pulses Integumentary: No rashes, Other (Erythematous scaly rash to scalp, bilateral third digits fingers) Neurological: Normal speech, Normal strength at 5/5 x4 extr, Normal tone, Normal affect Vitals Reviewed Problem list Sepsis secondary to UTI Diabetes mellitus type [id number] with noncompliance/hyperglycemia Psoriatic arthritis/psoriasis Plan: Sepsis secondary to UTI Lactate less than 2, no hypotension Continue antibioticsRocephin Blood culture- NGTD urine culture mixed sonia Diabetes mellitus type [id number] with noncompliance/hyperglycemia Used to be on metformin, has been noncompliant after reading the metformin can cause cancer Poorly controlled ACHS Accu-Chek, sliding scale insulin, A1c 10.9 Will need meds at discharge Psoriatic arthritis/psoriasis Outpatient management atarax started DVT PPX: Lovenox Code status: Full Discharge Plan: Home
[2023-08-13] MEDS: hydrOXYzine HCL 25 MG TAB PO PRN (11:51)
[2023-08-13] MEDS: POTASSIUM CL SA 10 MEQ TAB PO ONE (13:20)
--- NOTE | 2023-08-13 16:06 | P.DS ---
Admission Date: 08/11/23 Discharge Date: 08/13/23 Disposition: ROUTINE DISCHARGE Discharge Condition: FAIR Reason for Admission: UTI, sepsis Brief History of Present Illness: Diagnosis Sepsis secondary to UTI Diabetes mellitus type [id number] with noncompliance/hyperglycemia Psoriatic arthritis/psoriasis HPI 08/11/23 Kirsten Barros is a 62-year-old female with history of diabetes mellitus type 2, anemia, psoriatic arthritis/psoriasis presents emergency department with chief complaint of urinary symptoms, weakness. She reports has been having urinary symptoms for the past 10 days or so and has been trying to increase her cranberry juice intake but has not been on any antibiotics. She was evaluated in the emergency department her labs are significant for white blood cell count 16.8 glucose 390 UA suggestive of urinary tract infection. She was started on Rocephin in the ED, she reports has been noncompliant with her diabetes medications for a while now. Patient did have SIRS criteria present, no severe sepsis or septic shock. Hospital Course: Kirsten Barros is a pleasant 62 year old female with a past medical history significant for diabetes mellitus type 2, anemia, psoriatic arthritis/psoriasis who was admitted to the [facility] on 08/11/23 for Urinary tract infection. Kirsten presented to the ED with chief complaint of urinary symptoms for 10 days prior to arrival. Evaluation in the ED showed white blood cells 16.8 and glucose 390. She has tolerated insulin, IV antibiotics, with improvement to nausea and increased p.o. intake. Psoriasis becoming uncomfortable, recommend seeing rheumatology outpatient for further management. Follow-up with your PCP for continued monitoring and medical management. On 08/13/23, Kirsten was seen on morning rounds and deemed medically stable for discharge. Kirsten was discharged with instructions to schedule follow-up appointments with PCP and rheumatology. Kirsten was provided prescriptions for ciprofloxacin, tramadol,and glipizide. The patient was given the opportunity to ask questions and reported no further questions. Furthermore, all questions were answered to the best of my ability. A copy of this discharge summary will be sent to the above providers to facilitate continuity of care. Today, I personally spent 50 minutes with Kirsten, of which greater than 50% of the time was spent in patient education, counseling, and coordination of care as described above. Physical Exam General: No acute distress, alert and oriented x 3, calm HEENT: Atraumatic, PERRLA, Mucous membr. moist/pink Neck: Supple, 2+ carotid pulse no bruit, No LAD Respiratory: Clear to auscultation bilaterally, symmetrical chest wall movement Cardiovascular: Regular rate and rhythm, S1-S2 present, no murmur noted Gastrointestinal: Normal bowel sounds, No tenderness Musculoskeletal: No tenderness, 2+ peripheral pulses Integumentary: No rashes, Other (Erythematous scaly rash to scalp, bilateral third digits fingers) Neurological: Normal speech, Normal strength at 5/5 x4 extr, Normal tone, Normal affect Vital Signs/Physical Exam: Temp Pulse Resp BP Pulse Ox 97.6 F 82 18 151/77 H 98 08/13/23 12:00 08/13/23 12:00 08/13/23 12:00 08/13/23 12:00 08/13/23 12:00 Laboratory Data at Discharge: WBC 8.90 thou/uL (4.3-10.9) 08/13/23 07:21 Hgb 9.8 g/dL (12.0-15.0) L 08/13/23 07:21 Hct 30.4 % (36.0-45.0) L 08/13/23 07:21 Plt Count 507 thou/uL (152-406) H 08/13/23 07:21 PT 12.3 SECONDS (9.5-12.5) 08/11/23 06:35 INR 1.12 08/11/23 06:35 APTT 28.0 SECONDS (24.3-36.9) 08/11/23 06:35 Sodium 140 mEq/L (136-145) 08/13/23 07:21 Potassium 3.1 mEq/L (3.5-5.1) L 08/13/23 07:21 BUN 6 mg/dL (7-18) L 08/13/23 07:21 Creatinine 0.56 mg/dL (0.55-1.02) 08/13/23 07:21 Glucose 120 mg/dL (74-106) H 08/13/23 07:21 Magnesium 1.9 mg/dL (1.6-2.4) 08/13/23 07:21 Total Bilirubin 0.6 mg/dL (0.2-1.0) 08/11/23 06:35 AST 11 U/L (15-37) L 08/11/23 06:35 ALT 11 U/L (13-56) L 08/11/23 06:35 Alkaline Phosphatase 142 U/L (45-117) H 08/11/23 06:35 Home Medications: Ciprofloxacin HCl [Cipro] 500 mg PO BID #10 tab 08/13/23 glipiZIDE [Glipizide] 10 mg PO DAILY #30 tab 08/13/23 traMADol HCL [Ultram*] 50 mg PO TID PRN #15 tab 08/13/23 New Medications: Ciprofloxacin HCl [Cipro] 500 mg PO BID #10 tab glipiZIDE [Glipizide] 10 mg PO DAILY #30 tab traMADol HCL [Ultram*] 50 mg PO TID PRN #15 tab PRN Reason: Pain Scale 5-7 (Moderate) Physician Discharge Instructions: 1. Please call and schedule a follow-up appointment with your PCP in one week - Please follow-up with your PCP for medication refills/adjustments - Follow-up with urinary tract infection 2. Please call and schedule a follow-up appointment with rheumatology for your psoriasis management 3. Continue diabetic diet 4. Fall precaution 5. Return to the ED if symptoms worsen New medications Ciprofloxacin 500 mg p.o. twice daily daily for 10 days glipizide 10 mg p.o. daily tramadol 50 mg p.o. 3 times daily as needed x 15 days Diet: ADA Activity: Fall precautions Followup: NONE,NONE [Primary Care Provider] - 1-2 Weeks Time spent managing pt's care (in minutes): 50
[2023-08-13 19:24] VITALS: BP 122/64; TEMP 98.3
== END 2023-08-13 21:35 | disposition home or self-care (01) | DRG 872 ==
LOC: ER 04:57 → ERHOLD 09:00 → 4TH 13:38
PROVIDERS: ADMIT Hospitalist; ATTEND Internal Medicine
DX: A41.9 Sepsis, unspecified organism (principal); N39.0 Urinary tract infection, site not specified; E11.65 Type 2 diabetes mellitus with hyperglycemia; L40.50 Arthropathic psoriasis, unspecified; L40.9 Psoriasis, unspecified; T38.3X6A Underdosing of insulin and oral hypoglycemic [antidiabetic] drugs, initial encounter; Z60.2 Problems related to living alone; Z79.84 Long term (current) use of oral hypoglycemic drugs; Z91.128 Patient's intentional underdosing of medication regimen for other reason; Z28.310 Unvaccinated for COVID-19; Z91.148 Patient's other noncompliance with medication regimen for other reason; Z79.899 Other long term (current) drug therapy
CPT/HCPCS: 36415; 74177; 80048; 80053; 81001; 82947; 83036; 83605; 83735; 84132; 84439; 84443; 85025; 85610; 85730; 87040; 87086; 87088; 93005; 96365; 96366; 96372; 96375; 97116; 97161; 97165; 99285; J0696; J1650; J1815; J2405; J7030; J7040; Q9967

== ENCOUNTER 2023-11-17 21:49 | Emergency (ER) | payer SELFPAY ==
[2023-11-18] MEDS ORDERED: ACETAMINOPHEN 500 MG TAB ONE (00:48)
[2023-11-18] MEDS ORDERED: NA CHLORIDE 0.9% 1,000 ML ONE (00:49)
--- NOTE | 2023-11-18 01:32 | EDPHYS ---
Physician Documentation [facility] Name: Kirsten Barros Age: 63 yrs Sex: Female : 1960 Arrival Date: 11/17/2023 Time: 21:49 Bed 13 Private MD: ED Physician Francisco Landry HPI: 11/17 00:37 This 63 yrs old Female presents to ER via Ambulatory with complaints of Doesn't Feel sb4 Good. 00:37 power went out. feels sick from being in the heat. hasn't eaten since 7am. is a sb4 diabetic, not on meds, doesn't check blood sugar. feels dehydrated, has a headache. Historical: - Allergies: 11/16 22:18 No Known Allergies; as6 - PMHx: 22:18 Psoriatic Arthritis; Diabetes - NIDDM; autoimmune disease; Anemia; as6 - PSHx: 22:18 None; as6 - Immunization history:: Adult Immunizations up to date. - Infectious Disease History:: Denies. - Social history:: Smoking status: Patient denies any tobacco usage or history of. ROS: 11/17 00:40 Cardiovascular: Negative for chest pain, palpitations, and edema, sb4 Constitutional: Positive for malaise, Neuro: Positive for headache, Exam: 00:40 Constitutional: This is a well developed, well nourished patient who is awake, alert, sb4 and in no acute distress. Head/Face: Normocephalic, atraumatic. Eyes: Extra-ocular motions intact. Periorbital areas with no swelling, redness, or edema. Cardiovascular: Regular rate and rhythm with a normal S1 and S2. Respiratory: Lungs have equal breath sounds bilaterally, clear to auscultation and percussion. No rales, rhonchi or wheezes noted. No increased work of breathing, no retractions or nasal flaring. Abdomen/GI: Soft, non-tender, no distension. Skin: Warm, dry with normal turgor. Normal color with no rashes, no lesions, and no evidence of cellulitis. 00:40 ENT: Mouth: Oral mucosa: dry, Vital Signs: 11/16 22:17 BP 131 / 69; Pulse 97; Resp 18; Temp 97.8; Pulse Ox 98% ; Weight 58.97 kg; Height 5 ft. as6 2 in. ; Pain 8/10; 11/17 00:49 BP 144 / 77; Pulse 92; Resp 18; Temp 98; Pain 8/10; rg5 01:49 BP 135 / 76; Pulse 80; Resp 17; Temp 98; Pulse Ox 100% ; Pain 0/10; bm8 11/16 22:17 Body Mass Index 23.78 (58.97 kg, 157.48 cm) as6 11/16 22:17 Pain Scale: Adult as6 11/17 00:49 Pain Scale: Adult rg5 01:49 Pain Scale: Adult bm8 Emmanuel Coma Score: 01:49 Eye Response: spontaneous(4). Motor Response: obeys commands(6). Verbal Response: bm8 oriented(5). Total: 15. MDM: 11/16 22:20 Patient medically screened. sb4 11/17 01:04 Data reviewed: vital signs, nurses notes, lab test result(s), and as a result, I will sb4 discharge patient. Care significantly affected by the following chronic conditions: Diabetes. Counseling: I had a detailed discussion with the patient and/or guardian regarding the historical points, exam findings, and any diagnostic results supporting the discharge/admit diagnosis, lab results, to return to the emergency department if symptoms worsen or persist or if there are any questions or concerns that arise at home. 11/17 00:58 Order name: Glucose, Ancillary Testing; Complete Time: 00:59 EDMS 11/17 00:36 Order name: Accucheck; Complete Time: 00:55 sb4 11/17 00:36 Order name: IV Start; Complete Time: 00:55 sb4 11/17 00:36 Order name: Misc. Order: feed her pls; Complete Time: 00:55 sb4 Administered Medications: 00:55 Drug: NS 0.9% IV 1000 ml IV at 1 bolus Per protocol; 1000 mL bolus Route: IV; Rate: 1 bm8 bolus; Site: right forearm; 01:50 Follow up: Response: No adverse reaction; IV Status: Completed infusion; IV Intake: bm8 1000ml 00:55 Drug: Acetaminophen PO 1000 mg PO once Route: PO; bm8 01:50 Follow up: Response: No adverse reaction bm8 Disposition Summary: 11/18/23 01:32 Discharge Ordered Notes: Location: Home sb4 Problem: new sb4 Symptoms: have improved sb4 Condition: Stable sb4 Diagnosis - Type 2 diabetes mellitus with hyperglycemia sb4 - Heat exhaustion, unspecified sb4 Followup: sb4 - With: Emergency Department - When: As needed - Reason: Trouble breathing, Worsening of condition Discharge Instructions: - Discharge Summary Sheet sb4 - Heat Exhaustion sb4 Forms: - Patient Portal Instructions sb4 - Leadership Thank You Letter sb4 Signatures: Garfield Naranjo, RN RN as6 Amanda Hart PAPadmaC PAPankaj sb4 Medhat Hayward RN RN bm8
--- NOTE | 2023-11-18 01:32 | ER ---
Nurse's Notes [facility] Name: Kirsten Barros Age: 63 yrs Sex: Female : 1960 Arrival Date: 11/17/2023 Time: 21:49 Bed 13 Private MD: Diagnosis: Type 2 diabetes mellitus with hyperglycemia;Heat exhaustion, unspecified Presentation: 11/16 22:17 Chief complaint: Patient states: "My power isn't on and the heat is making me sick". as6 Coronavirus screen: At this time, the client does not indicate any symptoms associated with coronavirus-19. Ebola Screen: No symptoms or risks identified at this time. Initial Sepsis Screen: Does the patient meet any 2 criteria? No. Patient's initial sepsis screen is negative. Does the patient have a suspected source of infection? No. Patient's initial sepsis screen is negative. Risk Assessment: Do you want to hurt yourself or someone else? Patient reports no desire to harm self or others. Onset of symptoms was November 17, 2023. 22:17 Acuity: IAN 3 as6 22:17 Method Of Arrival: Ambulatory as6 Historical: - Allergies: 22:18 No Known Allergies; as6 - PMHx: 22:18 Psoriatic Arthritis; Diabetes - NIDDM; autoimmune disease; Anemia; as6 - PSHx: 22:18 None; as6 - Immunization history:: Adult Immunizations up to date. - Infectious Disease History:: Denies. - Social history:: Smoking status: Patient denies any tobacco usage or history of. Screenin/09 00:49 [facility] ED Fall Risk Assessment (Adult) History of falling in the last 3 months, rg5 including since admission No falls in past 3 months (0 pts) Confusion or Disorientation No (0 pts) Intoxicated or Sedated No (0 pts) Impaired Gait Yes (1 pt) Mobility Assist Device Used Yes (1 pt) Altered Elimination No (0 pt) Score/Fall Risk Level 0 - 2 = Low Risk Oriented to surroundings, Maintained a safe environment, Educated pt \\T\\ family on fall prevention, incl call for assistance when getting out of bed, Assessed \\T\\ reinforced patient's understanding of fall precautions, Hourly rounding (assess needs \\T\\ fall precautionary measures) done. Abuse screen: Denies threats or abuse. Nutritional screening: No deficits noted. Tuberculosis screening: No symptoms or risk factors identified. Assessment: 00:49 General: Appears in no apparent distress. comfortable, Behavior is calm, cooperative, rg5 appropriate for age. Pain: Complains of pain in head Pain currently is 8 out of 10 on a pain scale. Quality of pain is described as aching, Pain began 2 hours ago. Neuro: Level of Consciousness is awake, alert, obeys commands, Oriented to person, place, time, situation, Reports dizziness. Cardiovascular: Denies chest pain, Capillary refill < 3 seconds. Respiratory: Airway is patent Trachea midline Respiratory effort is even, unlabored, relaxed, Respiratory pattern is regular. GI: Abdomen is round Abd is soft and non tender. : No signs and/or symptoms were reported regarding the genitourinary system. EENT: No deficits noted. Derm: Skin is intact, Skin is dry, Skin is pink, warm \\T\\ dry. Musculoskeletal: Range of motion:. 01:49 Reassessment: Patient appears in no apparent distress at this time. Patient and/or bm8 family updated on plan of care and expected duration. Pain level reassessed. Patient is alert, oriented x 3, equal unlabored respirations, skin warm/dry/pink. Patient denies pain at this time. Patient states feeling better. Patient states symptoms have improved. Vital Signs: 11/16 22:17 BP 131 / 69; Pulse 97; Resp 18; Temp 97.8; Pulse Ox 98% ; Weight 58.97 kg; Height 5 ft. as6 2 in. ; Pain 8/10; 11/17 00:49 BP 144 / 77; Pulse 92; Resp 18; Temp 98; Pain 8/10; rg5 01:49 BP 135 / 76; Pulse 80; Resp 17; Temp 98; Pulse Ox 100% ; Pain 0/10; bm8 11/16 22:17 Body Mass Index 23.78 (58.97 kg, 157.48 cm) as6 11/16 22:17 Pain Scale: Adult as6 11/17 00:49 Pain Scale: Adult rg5 01:49 Pain Scale: Adult bm8 Emmanuel Coma Score: 01:49 Eye Response: spontaneous(4). Motor Response: obeys commands(6). Verbal Response: bm8 oriented(5). Total: 15. ED Course: 11/16 21:51 Patient arrived in ED. rg4 22:17 Arm band placed on right wrist. as6 22:18 Triage completed. as6 22:20 Amanda Hart PA-C is PHCP. sb4 22:20 Francisco Landry MD is Attending Physician. sb4 07 00:49 Allergy band placed. Bed in low position. Call light in reach. Side rails up X 1. rg5 00:49 Inserted saline lock: 20 gauge in right forearm, using aseptic technique. rg5 00:55 Notified ED physician of a critical lab result(s). BS [id number]. bm8 01:01 Que Nguyen, RN is Primary Nurse. rg5 01:49 Provided Education on: post er care. bm8 01:49 No provider procedures requiring assistance completed. IV discontinued, intact, bm8 bleeding controlled, No redness/swelling at site. Pressure dressing applied. Administered Medications: 00:55 Drug: NS 0.9% IV 1000 ml IV at 1 bolus Per protocol; 1000 mL bolus Route: IV; Rate: 1 bm8 bolus; Site: right forearm; 01:50 Follow up: Response: No adverse reaction; IV Status: Completed infusion; IV Intake: bm8 1000ml 00:55 Drug: Acetaminophen PO 1000 mg PO once Route: PO; bm8 01:50 Follow up: Response: No adverse reaction bm8 Medication: 00:49 VIS not applicable for this client. rg5 Intake: 01:50 IV: 1000ml; Total: 1000ml. bm8 Outcome: 01:32 Discharge ordered by MD. sb4 01:49 Discharged to home ambulatory, bm8 01:49 Condition: stable 01:49 Instructed on discharge instructions, follow up and referral plans. safety practices, Demonstrated understanding of instructions, follow-up care, medications, 01:51 Patient left the ED. bm8 Signatures: Nita Sequeira rg4 Garfield Naranjo, RN RN as6 Amanda Hart PA-C PA-C sb4 Medhat Hayward RN RN bm8 Que Nguyen, RN RN rg5 Corrections: (The following items were deleted from the chart) 01:51 01:51 Reassessment: Patient appears in no apparent distress at this time. bm8 bm8
[2023-11-18 02:26] VITALS: BP 135/76; TEMP 98; O2SAT 100
== END 2023-11-18 01:51 | disposition home or self-care (01) ==
LOC: ER 21:49
DX: E11.65 Type 2 diabetes mellitus with hyperglycemia (principal); T67.5XXA Heat exhaustion, unspecified, initial encounter
CPT/HCPCS: 82947; 96360; 99284; J7030